=== PATIENT | female | born 1995 | race Caucasian/White ===

== ENCOUNTER 2017-11-14 12:37 | Emergency (ER) | payer MEDICAID, SELFPAY ==
[2017-11-14 12:38] VITALS: BP 121/70; PULSE 140; RESP 16; TEMP 36.8; O2SAT 98; BMI 23.1
[2017-11-14] MEDS: HYDROmorphone 1 MG/ML Syringe IV (13:10)
[2017-11-14] MEDS: Ondansetron 4 MG/2 ML Vial IV (13:10)
[2017-11-14] MEDS: 0.9% Normal Saline 1,000 ML 150 ML IV (13:11)
[2017-11-14] MEDS: Ketorolac 30 MG/ML Syringe IV (13:11)
[2017-11-14 13:29] LABS: Mucous, Urine 0 SEEN /hpf (<or=2+)
[2017-11-14 13:32] LABS: Color, Urine Yellow (Yellow); Glucose, Dipstick Normal (Normal); Ketone-Dipstick 5 mg/dl (Negative); Leukocyte Esterase-Dipstick 500 /ul (Negative); Nitrite-Dipstick Positive (Negative); Occult Blood-Urine 10 /ul (Negative); Protein-Dipstick 30 mg/dl (Negative); Specific Gravity, Urine 1.015 (1.002-1.030); Urine Bilirubin Dipstick Negative (Negative); Urine Clarity Cloudy (Clear); Urine Urobilinogen 4 mg/dl (Normal); Urine pH 6.5 (5.0 - 8.0)
[2017-11-14 13:43] LABS: D-Dimer Quantitative (DVT/PE) 1.19 FEU/ug/m (0.27-0.49)
[2017-11-14 13:45] LABS: Bacteria 2+ /hpf (None Seen); Red Blood Cells-Urine 0-5 SEEN /hpf (0-5); Squamous Epithelial Cells - UA 0-5 SEEN /hpf (5-10); White Blood Cells 5-10 SEEN /hpf (0-5)
[2017-11-14 13:46] VITALS: BP 117/85; PULSE 87; RESP 19; O2SAT 97
[2017-11-14 13:47] LABS: ALB/GLOB Ratio 0.8 RATIO (0.9-2.4); AST(SGOT) 10 U/L (15-37); Alanine Aminotransfer ALT/SGPT 17 U/L (13-56); Albumin, Serum 3.5 g/dL (3.2-5.0); Alkaline Phosphatase 78 U/L (45-117); Anion Gap 7 (5-15); BUN 12 mg/dL (7-18); BUN/Creat Ratio 18.4 RATIO (10-20); Calcium,Total 8.6 mg/dL (8.5-10.1); Chloride 104 mmol/L (98-107); Creatinine, Serum 0.65 mg/dL (0.55-1.02); EST Glomerular Filtration Rate 122 mL/min (>60); Est Glom Filt Rate - Afr Amer 147 mL/min (>60); Estimated Creatinine Clearance 118.22 ml/min; Globulin 4.5 g/dL (2.2-4.2); Glucose 94 mg/dL (74-106); Lipase 100 U/L (73-393); Potassium 3.4 mmol/L (3.5-5.1); Sodium Level 138 mmol/L (136-145)
[2017-11-14 13:51] LABS: Pregnancy, Serum, hCG Quali. NEGATIVE Negative (0-9 Nonpreg)
[2017-11-14 13:58] LABS: Erythrocyte Sedimentation Rate 34 mm/hr (0-20)
[2017-11-14 14:00] LABS: Absolute Lymphocyte Count 2.14 X10^3/ul (0.83-4.51); Absolute Neutrophil Count 7.3 X10^3/uL (2.0-7.7); Basophil# 0.02 X10^3/uL; Basophil% 0.2 % (0-1); Eosinophil# 0.01 X10^3/uL; Eosinophils% 0.1 % (0-5); Hematocrit 38.5 % (37-47); Hemoglobin 12.9 g/dl (12.0-15.0); Lymphocyte # 2.14 X10^3/ul (4.0); Lymphocyte % 20.7 % (19-41); Mean Corp Hgb Conc 33.5 g/gl (32-36); Mean Corpuscular Hgb 29.9 pg (27.0-32.0); Mean Corpuscular Volume 89.3 fL (81-99); Mean Platelet Vol. 9.2 fl (6.2-12.0); Monocyte# 0.92 X10^3/uL; Monocyte% 8.9 % (0-10); Neutrophil # 7.25 X10^3/uL (2.7-7.7); Platelet Count 352 K/mm3 (150-450); RBC Distribution Width CV 13.9 % (11.6-14.6); RBC Distribution Width SD 45.9 fl (35.1-43.9); Red Blood Count 4.31 M/mm3 (4.2-5.4); White Blood Count 10.4 K/mm3 (4.4-11.0)
[2017-11-14 14:02] LABS: POSITIVE COUNT NO; POSITIVE DIFFERENTIAL NO; POSITIVE MORPHOLOGY NO
--- NOTE | 2017-11-14 15:11 | US_ITS ---
STUDY: ABDOMINAL ULTRASOUND - RIGHT UPPER QUADRANT REASON FOR VISIT: Female, 22 years old. Right upper quadrant pain TECHNIQUE: Ultrasound evaluation of the right upper quadrant was performed with real-time and static biswas-scale imaging. TECHNICAL QUALITY: Adequate. COMPARISON: None. FINDINGS: Liver: The liver measures 15.0 cm. There is normal echogenicity of the liver. The bile ducts are within normal limits. There is hepatic color flow. The direction of portal flow is hepatopetal. There is no demonstrated mass lesion. Gallbladder: Normal distended gallbladder. The gallbladder wall measures 2 mm. There is a positive sonographic Macias's sign as per civil design technician. There is no pericholecystic fluid. There are multiple small gallstones and trace of sludge within the gallbladder. Common Bile Duct (C.B.D.): The common bile duct measures 4 mm. Pancreas: Normal size of the head, body and tail of the pancreas. There is normal echogenicity of the pancreas. There is no demonstrated pancreatic mass or cyst. Right Kidney: Normal size of the right kidney. The right kidney measures 10.4 x 5.5 x 5.5 cm. Normal renal cortex. The right cortex measures 2.0 cm. There is no demonstrated renal mass or cyst. There is no right hydronephrosis. US/Gallbladder IMPRESSION: Cholelithiasis and sludge within the gallbladder. Positive sonographic Macias's sign as per civil design technician. This may be associated with cholecystitis. Electronically Signed: Titus Roper MD at 16:52 EDT , Service support ,
[2017-11-14 15:19] VITALS: BP 88/69; PULSE 88; RESP 18; O2SAT 97
--- NOTE | 2017-11-14 16:03 | ED.VISSUMM ---
- ER Visit Summary Date of Service: 11/14/17 Chief Complaint: [Right chest/abdomen pain] History of Present Illness: The patient is a 22 F [presents the emergency department with complaint of discomfort in the right side that started 2 days ago. Patient states the pain initially was mild but then resolved. Pain came back and now was continuous to the right upper abdomen and rib area. Patient states at times the pain will radiate to her shoulder. She denies any fever. She denies vomiting. She is not sure if food affects it at all. Pain is worse with deep breath and movement. Patient denies recent travel or surgery. She has not done any lifting or straining. Patient is never had pain like this before. Patient denies urinary symptoms. Patient does not think she is .] Physical Examination: [HEENT-PERRLA, EOMI. Cranial nerves II through XII grossly intact. TMs clear. Mucous membranes moist. No adenopathy. Cardiovascular-regular rate and rhythm without murmur or ectopy Lungs-clear to auscultation, chest wall stable without crepitus or subcu emphysema Abdomen-normoactive bowel sounds, soft. Patient has tenderness over the right upper quadrant with guarding. There is no rebound, rigidity, or perineal signs. Extremities-intact ?4, normal range of motion, normal pulses, atraumatic] Test Results: [EKG obtained on arrival shows sinus rhythm with ventricular rate of 110 bpm with no acute ST segment changes noted. CBC with differential obtained showed a white count of 10.4, hemoglobin 12.9, hematocrit 38, platelets 352. Sed rate was elevated at 34. Chemistries unremarkable. LFTs were normal. Lipase was 100. Urinalysis was positive for 500 leukocyte esterase 5-10 the PVCs and +2 bacteria. D-dimer was elevated 1.19. CTA of the chest obtained showed no PE or dissection. CTA abdomen and pelvis with IV contrast showed questionable small gallstones gallbladder otherwise looked unremarkable. Nothing else significant on CT of the abdomen pelvis.] Ultrasound of the gallbladder obtained showed gallstones and sludge with a positive sonographic Macias sign. Patient had a common bile duct of 4 mm and gallbladder wall of 2 mm and there was no pericholecystic fluid. Emergency Department Course and Treatment: [She was medicated with Dilaudid and Zofran and had good pain relief with that. Patient continued to be concerned about the amount of pain that she was having and continues to experience right upper quadrant pain on exam. Gallbladder ultrasound was ordered.] At this point the etiology of her pain is unclear I did have a long discussion with the patient and discussed having the surgeon evaluate her in the emergency department to determine if her gallbladder should be removed given that she continues to have pain. The other option would be to follow-up as an outpatient and send patient home with pain medication with instructions to return if worsening pain, fever, vomiting, or condition should worsen in any way. Patient is requesting to be discharged home and does not want to be seen by the surgeon at this time. Treatment Plan: [Patient to follow-up with in the office.] Disposition: [Discharged home in stable condition] Impression: [Abdominal pain Cholelithiasis] This note was generated with [employer] dictation software. It may contain incorrect words, spelling, and punctuation that were not noted in review of the chart prior to signing ED Disposition - Plan for ED Patient: Chief Complaint: Chest Other Referrals: Care Physician,No Primary [Primary Care Provider] -
[2017-11-14 16:51] VITALS: BP 131/83; PULSE 110; RESP 20; O2SAT 100
[2017-11-14 17:00] VITALS: PULSE 98; RESP 14; O2SAT 100
--- NOTE | 2017-11-14 17:04 | ED.DEP ---
ED Disposition - Plan for ED Patient: Chief Complaint: Chest Other Instructions: ED Abdominal Pain Gallstone Poss Prescriptions: Hydrocodone/Acetaminophen [Wolcott 5-325 Tablet] 1 ea PO 4X/DAY PRN PRN 5 Days #20 tab PRN Reason: Pain Lansoprazole [Prevacid] 30 mg PO DAILY #30 cap Smz/Tmp Ds [Bactrim Ds] 1 tab PO BID #6 tab Referrals: Care Physician,No Primary [Primary Care Provider] - Katya Vargas MD [STAFF PHYSICIAN] - 3-5 Days
[2017-11-14] MEDS: Magnesium Citrate 300 ML 150 ML PO (17:13)
== END 2017-11-14 17:13 | disposition home or self-care (01) ==
PROVIDERS: Emergency Provider Emergency Medicine
DX: K80.20 Calculus of gallbladder without cholecystitis without obstruction (principal); R10.11 Right upper quadrant pain; Z87.440 Personal history of urinary (tract) infections; Z72.0 Tobacco use
CPT/HCPCS: 71045; 71275; 74160; 76705; 80053; 81001; 83605; 83690; 84703; 85025; 85379; 85652; 87086; 87088; 87186; 93005; 96361; 96374; 96375; 99284; J7030; Q9967; J2405

== ENCOUNTER 2018-08-05 21:35 | Emergency (ER) | payer MEDICAID, SELFPAY ==
[2018-08-05 21:36] VITALS: BP 110/66; PULSE 103; RESP 15; TEMP 36.4; BMI 18.8
--- NOTE | 2018-08-05 21:56 | RAD_ITS ---
STUDY: X-RAY - SOFT TISSUE NECK REASON FOR EXAM: Female, 23 years old. Sore throat TECHNIQUE: 2 view(s) of the neck were obtained. COMPARISON: None. FINDINGS: Normal visualized nasopharynx, oropharynx, hypopharynx. Normal epiglottis. Normal visualized subglottic tracheal air column. Normal prevertebral soft tissue structures. Normal visualized osseous structures. The soft tissue structures are unremarkable. RAD/Neck for Soft Tissue IMPRESSION: Normal x-ray soft tissue neck. Electronically Signed: Marcio Cardoza MD at 22:35 EDT , Service support ,
--- NOTE | 2018-08-05 21:57 | ED.VIS.GEN ---
History of Present Illness Chief Complaint: Sore Throat Informant: Patient Onset: Days - 2 Narrative: 2-day history of sore throat pain with swallowing. No fevers. No sick contacts. Nonproductive cough. Still has her tonsils. Tobacco history. History of penicillin allergy causing anaphylaxis. Advil taken 2 days ago. No vomiting or diarrhea. Prior similar symptoms: No Past Medical History - Allergies and Home Meds Allergies/Adverse Reactions: Allergies Penicillins [PCN] Allergy (Verified 08/05/18 21:38) Anaphylaxis Primary Care Physician: Care Physician,No Primary [Primary Care Provider] - Surgical History: no surgical history Smoking Status: Current every day smoker - Family History Maternal Family History: Reports: - - thyroid disease Paternal Family History: Reports: Hypertension Sibling Family History: Reports: - - thyroid disease Review of Systems General: Denies: Chills, Fever, Sweats Eyes: Denies: Visual changes - bilaterally, Diplopia ENT: Denies: Rhinorrhea, Sore throat Cardiovascular: Denies: Chest pain, Palpitations Respiratory: Reports: Cough Gastrointestinal: Denies: Abdominal pain, Nausea, Vomiting, Diarrhea, Melena, Hematochezia Genitourinary: Denies: Dysuria, Hematuria, Frequency Musculoskeletal: Denies: Back pain, Extremity Pain Skin: Denies: Rash, Wounds Neurological: Denies: Headache, Weakness, Numbness Physical Exam Vital Signs/Narrative: Vital Signs Temp Pulse Resp BP 08/05/18 21:36 97.5 F L 103 H 15 110/66 Inital Vital Signs reviewed: Yes General: Well nourished, Well developed, No Acute Distress Head: Normocephalic, Atraumatic Eyes: Perrl, EOMI ENT: Moist mucous membranes, No rhinorrhea, - - No posterior pharyngeal erythema, minimal sized tonsils, uvula midline, no trismus. Neck: Supple, - - Tender palpation anterior cervical bilaterally. No crepitus. Cardiovascular: Regular rate, Regular rhythm, No murmurs Respiratory: No distress, CTA bilaterally, Chest nontender Abdomen: Soft, Nontender, Nondistended, Normal bowel sounds Back: Nontender, Normal Inspection Extremities: Nontender, No edema Skin: Normal color, No rash Neurological: Alert, Oriented x3, Cranial nerves II-XII grossly intact, Normal Strength, Normal Sensation Psychological: Normal affect, Normal Mood Diagnostic/Tx/Re-eval Rapid strep negative. Culture pending. Soft tissue x-ray neck: Normal epiglottis, no acute findings. - Medical Decision Making Patient nontoxic. Throat with minimal erythema how she has tenderness along the anterior neck region. Rapid strep obtained negative. Culture pending. She was sent for soft tissue x-ray of the neck which was normal. Treated with Decadron and Tylenol in the ED. Reported when patient went to x-ray had pain in her neck and a syncopal episode. Vitals are stable no focal deficits. Likely vasovagal reaction. She is currently stable. Discussed with patient continue oral hydration. Prescription for viscous lidocaine written for additional symptom control as needed. All questions were answered. ED Disposition - Plan for ED Patient: Disposition: Home or Assisted Living Diagnosis: Acute pharyngitis Instructions: ED Pharyngitis Viral Report Pending Prescriptions: Lidocaine 2% Viscous [Xylocaine Viscous] 5 ml PO Q8H PRN PRN #100 ml PRN Reason: throat pain Referrals: Care Physician,No Primary [Primary Care Provider] - Aicha Centeno [NON-STAFF] - 3-5 Days if not improving
[2018-08-05] MEDS: Acetaminophen 500 MG Tablet 1000 MG PO (22:13)
[2018-08-05 22:30] VITALS: BP 103/70; PULSE 102; RESP 16; O2SAT 97
--- NOTE | 2018-08-05 22:30 | ED.RN ---
STAFF ASSIST TO RADIOLOGY. REPORTED PATIENT PASSED OUT WHILE GETTING XRAY DONE. PER PRODUCT STRATEGY DIRECTOR PATIENT DID NOT HIT HEAD. ASSISTED PATIENT BACK TO ROOM VIA WHEELCHAIR. VITAL SIGNS STABLE. DR. DE LA O NOTIFIED.
[2018-08-05 23:20] VITALS: BP 98/71; PULSE 98; RESP 19; O2SAT 95
== END 2018-08-05 23:40 | disposition home or self-care (01) ==
PROVIDERS: Emergency Provider Emergency Medicine
DX: J02.9 Acute pharyngitis, unspecified (principal); F17.200 Nicotine dependence, unspecified, uncomplicated
CPT/HCPCS: 70360; 87880; 99283; J7040

== ENCOUNTER 2019-01-07 18:35 | Emergency (ER) | payer MEDICAID, SELFPAY ==
[2019-01-07 18:36] VITALS: BP 116/73; PULSE 98; RESP 14; TEMP 36.7; O2SAT 97; BMI 25.9
[2019-01-07 18:48] VITALS: BP 116/73; PULSE 98; RESP 14; O2SAT 97
[2019-01-07 18:49] VITALS: BP 116/73; PULSE 98; RESP 14; TEMP 36.7; O2SAT 97
[2019-01-07] MEDS: Clindamycin HCl 150 MG Capsule 450 MG PO (19:56)
--- NOTE | 2019-01-07 20:00 | ED.DCSUM_ITS ---
History of Present Illness Chief Complaint: Dental Informant: Patient Onset: Today Narrative: Swelling left lower jaw this morning, had dental pain for 2 days. No fevers. No hot cold sensitivities. Tobacco history. Reports had a root canal wanted tooth 2 years ago however it fell off. States another feeling is loose. No difficulty swallowing. Allergies to penicillin. Aleve taken yesterday. States going to a dentist in [facility]. Prior similar symptoms: Yes Past Medical History - Allergies and Home Meds Allergies/Adverse Reactions: Allergies Penicillins [PCN] Allergy (Verified 01/07/19 18:38) Anaphylaxis Primary Care Physician: Care Physician,No Primary [Primary Care Provider] - Surgical History: no surgical history Smoking Status: Current every day smoker - Family History Maternal Family History: Reports: - - thyroid disease Paternal Family History: Reports: Hypertension Sibling Family History: Reports: - - thyroid disease Review of Systems General: Denies: Chills, Fever, Sweats Eyes: Denies: Visual changes - bilaterally, Diplopia ENT: Denies: Rhinorrhea, Sore throat Cardiovascular: Denies: Chest pain, Palpitations Respiratory: Denies: Dyspnea, Cough, Dyspnea on exertion Gastrointestinal: Denies: Abdominal pain, Nausea, Vomiting, Diarrhea, Melena, Hematochezia Genitourinary: Denies: Dysuria, Hematuria, Frequency Musculoskeletal: Denies: Back pain, Extremity Pain Skin: Denies: Rash, Wounds Neurological: Denies: Headache, Weakness, Numbness Physical Exam Vital Signs/Narrative: Vital Signs Temp Pulse Resp BP Pulse Ox 01/07/19 18:49 98.0 F 98 14 116/73 97 01/07/19 18:48 98 14 116/ 97 01/07/19 18:36 98.0 F 98 14 116/73 97 Inital Vital Signs reviewed: Yes General: Well nourished, Well developed, No Acute Distress Head: Normocephalic, Atraumatic Eyes: Perrl, EOMI ENT: Moist mucous membranes, No rhinorrhea, - - Dental decay tooth #19, broken filling tooth #18, there is induration fluctuance region lower gumline in this region. There is swelling of the jaw line. There is no sublingual edema. There is no crepitus of the neck line. Neck: Supple, Nontender Cardiovascular: Regular rate, Regular rhythm, No murmurs Respiratory: No distress, CTA bilaterally, Chest nontender Abdomen: Soft, Nontender, Nondistended, Normal bowel sounds Back: Nontender, Normal Inspection Extremities: Nontender, No edema Skin: Normal color, No rash Neurological: Alert, Oriented x3, Cranial nerves II-XII grossly intact, Normal Strength, Normal Sensation Psychological: Normal affect, Normal Mood Diagnostic/Tx/Re-eval - Medical Decision Making Patient exam concerns with developing dental abscess left lower gumline. Starting clindamycin, naproxen. Discussed incision and drainage which she agreed. Stab incision, however no exudative drainage was noted. Should continue antibiotics, she has naproxen at home. She will follow-up with her dentist. Signs and symptoms discussed return. All questions were answered. Procedure note: Verbal consent for incision and drainage. Normal sterile condi tions, dental block performed using dental needle and syringe with bupivacaine 0.5%. Good analgesia to the left inferior alveolar. Stab incision with 11 blade at gumline of tooth #19, bloody drainage however no exudates. Patient tolerated procedure well. Gauze was used to help with hemostasis. ED Disposition - Plan for ED Patient: Disposition: Home or Assisted Living Diagnosis: Dental abscess Instructions: Dental Abscess Prescriptions: Clindamycin [Cleocin] 450 mg PO TID #90 capsule Referrals: Care Physician,No Primary [Primary Care Provider] - Additional Instructions: Follow-up with your dentist for definitive treatment.
[2019-01-07 20:36] VITALS: BP 118/77; PULSE 84; RESP 18; O2SAT 100
[2019-01-07] MEDS: Bupivacaine 0.5% PF 10 ML VIAL 5 ML INFILT (21:01)
== END 2019-01-07 21:03 | disposition home or self-care (01) ==
PROVIDERS: Emergency Provider Emergency Medicine
DX: K04.7 Periapical abscess without sinus (principal); F17.200 Nicotine dependence, unspecified, uncomplicated
CPT/HCPCS: 41800; 99281

== ENCOUNTER 2019-04-12 22:52 | Emergency (ER) | payer MEDICAID, SELFPAY ==
[2019-04-12 22:53] VITALS: BP 125/67; PULSE 84; RESP 18; TEMP 37.1; O2SAT 97; BMI 25.7
--- NOTE | 2019-04-12 23:04 | ED.VIS.GEN ---
History of Present Illness Chief Complaint: Other, Pain/Inj Informant: Patient Narrative: Stated she has a small cold sore on her left lower lip. It started this morning. She is never had this before. It is tender and she feels mild burning pain. Denies any other symptoms. She has some swelling mildly where the cold sores located. Current severity is mild. Denies any other symptoms. Denies any genital lesions. - Past Medical History (1) Anemia associated with acute blood loss Status: Acute (2) Missed Status: Acute (3) hemorrhage of vagina Status: Acute (4) hemorrhage, delayed (> 24 hrs) Status: Acute Past Medical History - Allergies and Home Meds Allergies/Adverse Reactions: Allergies Penicillins [PCN] Allergy (Verified 04/12/19 22:55) Anaphylaxis Primary Care Physician: Care Physician,No Primary [Primary Care Provider] - Prior records reviewed: Yes Past Medical History: - - See problem list Surgical History: no surgical history Lives: With Family Smoking Status: Current every day smoker Alcohol: None Drugs: None - Family History Maternal Family History: Reports: - - thyroid disease Paternal Family History: Reports: Hypertension Sibling Family History: Reports: - - thyroid disease Review of Systems General: Denies: Chills, Fever, Sweats Eyes: Denies: Visual changes - bilaterally, Diplopia ENT: Denies: Rhinorrhea, Sore throat Cardiovascular: Denies: Chest pain, Palpitations Respiratory: Denies: Dyspnea, Cough, Dyspnea on exertion Gastrointestinal: Denies: Abdominal pain, Nausea, Vomiting, Diarrhea, Melena, Hematochezia Genitourinary: Denies: Dysuria, Hematuria, Frequency Musculoskeletal: Denies: Back pain, Extremity Pain Skin: Reports: - - See HPI. Denies: Wounds Neurological: Denies: Headache, Weakness, Numbness Physical Exam Vital Signs/Narrative: Vital Signs Temp Pulse Resp BP Pulse Ox 04/12/19 22:53 98.7 F 84 18 125/67 H 97 General: Well nourished, Well developed, No Acute Distress Head: Normocephalic, Atraumatic Eyes: Perrl, EOMI ENT: Moist mucous membranes, No rhinorrhea, - - She has a small 0.5 x 0.25 cold sore on her left lower lateral lip. Neck: Supple, Nontender Cardiovascular: Regular rate, Regular rhythm, No murmurs Respiratory: No distress, CTA bilaterally, Chest nontender Abdomen: Soft, Nontender, Nondistended, Normal bowel sounds Back: Nontender, Normal Inspection Extremities: Nontender, No edema Skin: Normal color, No rash Neurological: Alert, Oriented x3, Cranial nerves II-XII grossly intact, Normal Strength, Normal Sensation Psychological: Normal affect, Normal Mood Diagnostic/Tx/Re-eval - Medical Decision Making Patient reassured. She will be given Abreva. At this time she was instructed on how to care for her cold sore. It is self resolving. We will follow-up as an outpatient ED Disposition - Plan for ED Patient: Disposition: Home or Assisted Living Diagnosis: Cold sore Instructions: HERPES LABIALIS, HSV: Type I Prescriptions: Docosonal [Abreva] 1 applic TP 5X/DAY 14 Days #1 tube Prescription Printed Referrals: Salvatore Brice DO [NON CLINICAL AFFILIATE] -
[2019-04-12 23:13] VITALS: RESP 14
== END 2019-04-12 23:13 | disposition home or self-care (01) ==
LOC: ED 23:08
PROVIDERS: Emergency Provider Emergency Medicine
DX: B00.1 Herpesviral vesicular dermatitis (principal); F17.200 Nicotine dependence, unspecified, uncomplicated
CPT/HCPCS: 99282

== ENCOUNTER → 2019-10-02 | Outpatient (CLI) | payer MEDICAID, SELFPAY ==
[2019-10-02 13:53] VITALS: BMI 25.7
[2019-10-02 15:30] LABS: Internal QC Validated? YES +Cl - CLEAR BKGD; Pregnancy, Urine Negative Negative
[2019-10-02 15:40] LABS: Absolute Lymphocyte Count 2.71 X10^3/uL (0.83-4.51); Absolute Neutrophil Count 5.6 X10^3/uL (2.0-7.7); Basophil# 0.06 X10^3/uL; Basophil% 0.7 % (0-1); Eosinophil# 0.03 X10^3/uL; Eosinophils% 0.3 % (0-5); Hematocrit 41.4 % (37-47); Hemoglobin 13.9 g/dL (12.0-15.0); Lymphocyte # 2.71 X10^3/ul (4.0); Lymphocyte % 29.8 % (19-41); Mean Corp Hgb Conc 33.6 g/dL (32-36); Mean Corpuscular Hgb 31.2 pg (27.0-32.0); Mean Platelet Vol. 9.4 fl (6.2-12.0); Monocyte# 0.67 X10^3/uL; Monocyte% 7.4 % (0-10); NRBC Flagged by Analyzer 0 % (0-5); Neutrophil % 61.6 % (47-70); Platelet Count 388 K/mm3 (150-450); RBC Distribution Width SD 44.3 fl (35.1-43.9); Red Blood Count 4.45 M/mm3 (4.2-5.4); White Blood Count 9.1 K/mm3 (4.4-11.0)
[2019-10-02 16:52] LABS: ALB/GLOB Ratio 1.1 RATIO (0.9-2.4); AST(SGOT) 17 U/L (15-37); Alanine Aminotransfer ALT/SGPT 22 U/L (13-56); Albumin, Serum 4.3 g/dL (3.2-5.0); Alkaline Phosphatase 84 U/L (45-117); Anion Gap 7 (5-15); BUN 10 mg/dL (7-18); BUN/Creat Ratio 15.7 RATIO (10-20); Calcium,Total 8.9 mg/dL (8.5-10.1); Chloride 104 mmol/L (98-107); Creatinine, Serum 0.64 mg/dL (0.55-1.02); EST Glomerular Filtration Rate 123 mL/min (>60); Est Glom Filt Rate - Afr Amer 148 mL/min (>60); Globulin 3.8 g/dL (2.2-4.2); Glucose 76 mg/dL (74-106); Potassium 3.6 mmol/L (3.5-5.1); Protein, Total 8.1 g/dL (6.4-8.2); Sodium Level 139 mmol/L (136-145); Thyroid Stim Hormone (TSH) 1.35 uIU/mL (0.358-3.74)
[2019-10-03 14:53] LABS: HIV - WCH Non-Reactive (Nonreactive); Hepatitis B Surface Antigen Non-Reactive (Nonreactive); Hepatitis C Antibody Preliminary Reactive (Nonreactive)
== END | disposition home or self-care (01) ==
LOC: BIMLAB 14:20
PROVIDERS: PCP Internal Medicine; Referring Provider Nurse Practitioner Family; Visit Provider Nurse Practitioner Family
DX: F19.10 Other psychoactive substance abuse, uncomplicated (principal); F31.9 Bipolar disorder, unspecified
CPT/HCPCS: 36415; 80053; 81025; 84443; 85025; 86703; 86803; 87340

== ENCOUNTER 2019-11-16 02:38 | Inpatient (IN) | payer MEDICAID, SELFPAY ==
[2019-10-02 13:53] VITALS: BMI 25.7
[2019-11-16] VITALS (42 sets, daily range): BP systolic 59–145; BP diastolic 38–92; PULSE 67–129; RESP 10–33; TEMP 35.8–39.6; O2SAT 92–100; BMI 25.7; BMI 25.9; BMI 26.0
--- NOTE | 2019-11-16 02:57 | US_ITS ---
STUDY: ABDOMINAL ULTRASOUND - RIGHT UPPER QUADRANT REASON FOR VISIT: Female, 24 years old RUQ PAIN 2 DAYS WORSE TONIGHT TECHNIQUE: Ultrasound evaluation of the right upper quadrant was performed with real-time and static biswas-scale imaging. TECHNICAL QUALITY: Limited. Examination limited by bowel gas. COMPARISON: CT abdomen pelvis and limited abdominal ultrasound 11/14/2017 FINDINGS: Liver: The liver measures 15.6 cm. There is focal increased echogenicity of the liver in the anterior left lobe measuring 4.8 x 1.8 x 2.1 cm. This appears to be increased since previous examination. The bile ducts are within normal limits. There is hepatic color flow. The direction of portal flow is hepatopetal. There is no demonstrated mass lesion. Gallbladder: 11.5 cm distended gallbladder. The gallbladder wall measures 2.1 mm. There is a negative sonographic Macias''s sign. There is no pericholecystic fluid. There is biliary sludge dependent within the gallbladder. Common Bile Duct (C.B.D.): The common bile duct measures 3.2 mm. Pancreas: Normal size of the head, body and obscured tail of the pancreas. There is normal echogenicity of the pancreas. There is no demonstrated pancreatic mass or cyst. Right Kidney: Normal size of the right kidney. The right kidney measures 11 x 5.5 x 5.5 cm. Normal renal cortex. The right cortex measures 2 cm. There is no demonstrated renal mass or cyst. There is no right hydronephrosis. US/Gallbladder IMPRESSION: Possible focal fatty deposition into the liver as above, however increased since previous examination. As this has changed the previous ultrasound examination, consideration of a noncontrast and contrast-enhanced dynamic CT liver or MRI is recommended for better delineation exclusion off other pathology. Markedly distended gallbladder containing sludge, however no wall thickening or ultrasonographic Macias''s sign to suggest acute cholecystitis. Partially obscured pancreas tail. Electronically Signed: Bianka Fulton MD at 4:56 EDT , Service support ,
--- NOTE | 2019-11-16 03:06 | ED.VIS.GEN ---
History of Present Illness Chief Complaint: Abd Pain Narrative: This patient is a 24-year-old female who presents with abdominal pain nausea and vomiting. She complains of severe right upper quadrant abdominal pain for 2 days. This is colicky. She describes it as stabbing. This is associated with nausea vomiting and fever. No diarrhea. She denies any prior abdominal surgeries but has been previously diagnosed with biliary colic and did not follow-up. She no longer has menstrual periods due to an IUD placement. No vaginal bleeding or discharge. No diarrhea. She denies chest pain shortness of breath or cough. Past Medical History - Allergies and Home Meds Allergies/Adverse Reactions: Allergies Penicillins [PCN] Allergy (Verified 10/02/19 13:52) Anaphylaxis Primary Care Physician: Denisha Vernon MD [Primary Care Provider] - Past Medical History: - - Depression Surgical History: no surgical history Smoking Status: Former smoker Drugs: - - She denies illicit drug use. - Family History Maternal Family History: Family History (Last Reviewed 10/02/19 @ 13:52 by Kyle Mejia) Father Alcoholism Anxiety Depression Hypertension Suicide Mother Thyroid disorder Family History: Reports: - - thyroid disease Paternal Family History: Family History (Last Reviewed 10/02/19 @ 13:52 by Kyle Mejia) Father Alcoholism Anxiety Depression Hypertension Suicide Mother Thyroid disorder Family History: Reports: Hypertension Sibling Family History: Family History (Last Reviewed 10/02/19 @ 13:52 by Kyle Mejia) Father Alcoholism Anxiety Depression Hypertension Suicide Mother Thyroid disorder Family History: Reports: - - thyroid disease Review of Systems All systems negative except as indicated General: Reports: Fever Eyes: Denies: Visual changes - bilaterally ENT: Denies: Bilateral ear pain Cardiovascular: Denies: Chest pain Respiratory: Denies: Dyspnea, Cough Gastrointestinal: Reports: Abdominal pain, Nausea, Vomiting. Denies: Diarrhea Skin: Denies: Rash Neurological: Denies: Headache Hematologic: Denies: Easy bruising Allergy: Denies: Uticaria Physical Exam Vital Signs/Narrative: Vital Signs Temp Pulse Resp BP Pulse Ox 11/16/19 02:42 103.3 F H 123 H 20 H 129/91 H 99 11/16/19 02:39 103.3 F H 123 H 20 H 129/91 H 99 Inital Vital Signs reviewed: Yes General: - - Patient ill appearing Head: Normocephalic, Atraumatic Eyes: EOMI ENT: Moist mucous membranes Neck: Supple Cardiovascular: Regular rhythm, Tachycardia Respiratory: No distress, CTA bilaterally Abdomen: Soft, Tender - Right upper quadrant abdominal pain on palpation, Macias's sign. Negative for: Guarding, Rebound tenderness Skin: Normal color Neurological: Alert Psychological: Normal affect Diagnostic/Tx/Re-eval Impressions Gallbladder Ultrasound 11/16/19 02:57 IMPRESSION: Possible focal fatty deposition into the liver as above, however increased since previous examination. As this has changed the previous ultrasound examination, consideration of a noncontrast and contrast-enhanced dynamic CT liver or MRI is recommended for better delineation exclusion off other pathology. Markedly distended gallbladder containing sludge, however no wall thickening or ultrasonographic Macias''s sign to suggest acute cholecystitis. Partially obscured pancreas tail. Electronically Signed: Bianka Fulton MD at 4:56 EDT , Service support , ADDENDUM: 11/16/19 0515 Abdomen/Pelvis CT 11/16/19 04:26 IMPRESSION: Findings suggestive of pyelonephritis/ureteritis of the right genitourinary system. Distended gallbladder, no gallbladder inflammation or sludge detected. Injuries involving the liver along the falciform ligament likely focal fatty sparing. Changes along the liver parenchyma periphery on ultrasound is not demonstrated. There is no appendicitis, colitis, abscess, collection, perforation or obstruction. Intrauterine device in suboptimal positioning. Right involuting ovarian cyst/follicles. Electronically Signed: Bianka Fulton MD at 5:05 EDT , Service support , 11/16/19 02:57 Gallbladder [US] Stat 11/16/19 04:26 CT Abd [Abdomen/Pelvis W IV Cont ONLY] [CT] Stat Laboratory Results 11/16/19 11/16/19 11/16/19 03:17 03:17 03:17 WBC 25.2 H RBC 4.08 L Hgb 12.7 Hct 35.6 L MCV 87.3 MCH 31.1 MCHC 35.7 RDW Std Deviation 38.7 RDW Coeff of Kathy 12.0 Plt Count 285 MPV 9.6 Immature Gran % (Auto) 0.900 Neut % (Auto) 87.8 H Lymph % (Auto) 4.5 L [place] % (Auto) 6.5 Eos % (Auto) 0.1 Baso % (Auto) 0.2 Absolute Neuts (auto) 22.1 H Absolute Lymphs (auto) 1.14 Nucleated RBC % 0 Differential Comment SCANNED Diff Path Review May foll Sodium 130 L Potassium 2.5 L* Chloride 95 L Carbon Dioxide 24.0 Anion Gap 11 BUN 11 Creatinine 1.05 H Estim Creat Clear Calc 71.96 Est GFR (MDRD) Af Amer 83 Est GFR (MDRD) Non-Af 69 BUN/Creatinine Ratio 10.5 Glucose 116 H Lactic Acid 1.2 Calcium 8.4 L Total Bilirubin 1.00 AST 18 ALT 21 Alkaline Phosphatase 81 Total Protein 7.5 Albumin 3.4 Globulin 4.1 Albumin/Globulin Ratio 0.8 L Lipase 37 L Serum , Qual 11/16/19 03:17 WBC RBC Hgb Hct MCV MCH MCHC RDW Std Deviation RDW Coeff of Kathy Plt Count MPV Immature Gran % (Auto) Neut % (Auto) Lymph % (Auto) [place] % (Auto) Eos % (Auto) Baso % (Auto) Absolute Neuts (auto) Absolute Lymphs (auto) Nucleated RBC % Differential Comment Diff Path Review Sodium Potassium Chloride Carbon Dioxide Anion Gap BUN Creatinine Estim Creat Clear Calc Est GFR (MDRD) Af Amer Est GFR (MDRD) Non-Af BUN/Creatinine Ratio Glucose Lactic Acid Calcium Total Bilirubin AST ALT Alkaline Phosphatase Total Protein Albumin Globulin Albumin/Globulin Ratio Lipase Serum , Qual NEGATIVE - Medical Decision Making Based on patient's initial presentation and reported history I was concerned for acute cholecystitis. Patient was given IV fluids morphine Zofran. She is penicillin allergic and reaction is anaphylaxis so she was given Cipro and Flagyl as empiric coverage. Laboratory studies were obtained which are notable for white blood cell count of 25,000. Potassium is 2.5. Lactic acid normal. I did order IV potassium chloride. Patient was sent for right upper quadrant ultrasound which does show distended gallbladder but does not show findings consistent with acute cholecystitis. At this point we obtained a CT of the abdomen pelvis with IV contrast. This shows findings most consistent with right pyelonephritis. Urine is still pending at this time patient has not yet been able to void. She is given further IV fluids. Patient was discussed with the hospitalist, Dr. Shields who agrees to admit. ED Disposition - Plan for ED Patient: Disposition: Acute Care [facility] Diagnosis: Sepsis, Pyelonephritis Referrals: Denisha Vernon MD [Primary Care Provider] -
[2019-11-16] MEDS: 0.9% Normal Saline 1,000 ML 1000 ML IV (03:17)
[2019-11-16] MEDS: Morphine 4 MG/ML Syringe IV ×2 (03:17→04:59)
[2019-11-16] MEDS: Ondansetron 4 MG/2 ML Vial IV (03:18)
[2019-11-16] MEDS: Acetaminophen 325 MG Tablet 650 MG PO ×2 (03:18→21:26)
[2019-11-16] MEDS: metroNIDAZOLE 500 MG/100 ML BAG 100 MG IV (03:33)
[2019-11-16 03:45] LABS: Absolute Lymphocyte Count 1.14 X10^3/uL (0.83-4.51); Absolute Neutrophil Count 22.1 X10^3/uL (2.0-7.7); Basophil# 0.05 X10^3/uL; Basophil% 0.2 % (0-1); Eosinophil# 0.03 X10^3/uL; Eosinophils% 0.1 % (0-5); Hematocrit 35.6 % (37-47); Hemoglobin 12.7 g/dL (12.0-15.0); Lymphocyte # 1.14 X10^3/ul (4.0); Lymphocyte % 4.5 % (19-41); Mean Corp Hgb Conc 35.7 g/dL (32-36); Mean Corpuscular Hgb 31.1 pg (27.0-32.0); Mean Corpuscular Volume 87.3 fL (81-99); Mean Platelet Vol. 9.6 fl (6.2-12.0); Monocyte# 1.65 X10^3/uL; Monocyte% 6.5 % (0-10); NRBC Flagged by Analyzer 0 % (0-5); Neutrophil # 22.12 X10^3/uL (2.7-7.7); Neutrophil % 87.8 % (47-70); POSITIVE DIFFERENTIAL YES; Platelet Count 285 K/mm3 (150-450); RBC Distribution Width SD 38.7 fl (35.1-43.9); Red Blood Count 4.08 M/mm3 (4.2-5.4); White Blood Count 25.2 K/mm3 (4.4-11.0)
[2019-11-16 03:49] LABS: Differential Indicated SCAN CRITERIA MET
[2019-11-16 04:06] LABS: ALB/GLOB Ratio 0.8 RATIO (0.9-2.4); AST(SGOT) 18 U/L (15-37); Alanine Aminotransfer ALT/SGPT 21 U/L (13-56); Albumin, Serum 3.4 g/dL (3.2-5.0); Alkaline Phosphatase 81 U/L (45-117); Anion Gap 11 (5-15); BUN 11 mg/dL (7-18); BUN/Creat Ratio 10.5 RATIO (10-20); Calcium,Total 8.4 mg/dL (8.5-10.1); Chloride 95 mmol/L (98-107); Creatinine, Serum 1.05 mg/dL (0.55-1.02); EST Glomerular Filtration Rate 69 mL/min (>60); Est Glom Filt Rate - Afr Amer 83 mL/min (>60); Estimated Creatinine Clearance 71.96 ml/min; Globulin 4.1 g/dL (2.2-4.2); Glucose 116 mg/dL (74-106); Lipase 37 U/L (73-393); Potassium 2.5 mmol/L (3.5-5.1); Protein, Total 7.5 g/dL (6.4-8.2); Sodium Level 130 mmol/L (136-145)
[2019-11-16 04:12] LABS: Internal QC Validated? YES +Cl - CLEAR BKGD; Pregnancy, Serum, hCG Quali. NEGATIVE Negative
[2019-11-16 04:13] LABS: Differential Comment SCANNED
[2019-11-16 04:17] LABS: Lactic Acid 1.2 mmol/L (0.4-1.9)
--- NOTE | 2019-11-16 04:26 | CT_ITS ---
STUDY: CT ABDOMEN AND PELVIS WITH CONTRAST REASON FOR EXAM: Female, 24 years old. RUQ Pain, fever AND VOMITING X 2 Days, elevated WBC -- Hx: hep C, pt HAS IUD RADIATION DOSAGE (If Supplied By Facility): CTDIvol = ( 14.08 ) mGy, DLP = ( 603.30 ) mGycm TECHNIQUE: Transaxial 3.75 mm images were obtained from the dome of the diaphragm to the symphysis pubis without oral contrast. IV 100mL Isovue-370 was administered. Sagittal and coronal images were reconstructed. Individualized dose optimization techniques were used for this CT. COMPARISON: Limited abdominal ultrasound 11/16/2019. CT abdomen pelvis contrast 11/14/2017. FINDINGS: The visualized lung bases are unremarkable. The visualized portions of the heart are within normal limits. There is focal low attenuation along the falciform ligament, more pronounced on the current examination compared to previous CT likely focal fatty sparing. There are no cirrhotic changes. Distended gallbladder and extrahepatic biliary system. Normal spleen. Normal pancreas. Normal bilateral adrenal glands. Heterogeneous nephrogram of the right kidney with scattered areas of decreased enhancement more pronounced in the upper and mid kidney with indistinct contour, trace perirenal stranding, periureteral indistinct contour and stranding . There is no hydronephrosis, obstructing renal or ureteral calculus. Left nephrogram appears homogeneous. Normal visualized stomach. Normal small intestine. Normal colon. The appendix is visualized and appears normal. Normal abdominal aorta. Normal inferior vena cava. Normal retroperitoneum. Normal urinary bladder. The intrauterine device is positioned in the lower uterine segment and cervix. The right adnexa contains a partially peripherally enhancing low-attenuation 1.7 x 1.7 cm likely a complex cyst with additional smaller subcentimeter low attenuations. Normal abdominal wall. Normal osseous structures. CT/Abdomen/Pelvis W IV Cont ONLY IMPRESSION: Findings suggestive of pyelonephritis/ureteritis of the right genitourinary system. Distended gallbladder, no gallbladder inflammation or sludge detected. Injuries involving the liver along the falciform ligament likely focal fatty sparing. Changes along the liver parenchyma periphery on ultrasound is not demonstrated. There is no appendicitis, colitis, abscess, collection, perforation or obstruction. Intrauterine device in suboptimal positioning. Right involuting ovarian cyst/follicles. Electronically Signed: Bianka Fulton MD at 5:05 EDT , Service support ,
[2019-11-16] MEDS: Ciprofloxacin 400 MG/200 ML BAG 200 MG IV (04:59)
--- NOTE | 2019-11-16 05:10 | HP.PCM_ITS ---
Problem List (1) Acute sepsis Status: Acute (2) Acute pyelonephritis Status: Acute (3) Polysubstance abuse Status: Chronic (4) Anxiety Status: Chronic (5) Tobacco use Status: Chronic History of Present Illness Date of Admission: 11/16/19 Chief Complaint: Abdominal pain, N/V The patient is a 24 y/o F w/ PMHx: Migraines, Hx Polysubstance abuse w/ Methamphetamines, Anxiety and Depression, Former Tobacco use who presents to the [facility] ED on 11/16/19 with history of onset significant abdominal pain primarily severe right upper quadrant pain x2 days, stabbing, 10 out of 10 in severity with associated nausea, emesis and fevers with no related diarrhea radiating toward her right lower back initially felt as though this was her biliary colic; however, no resolving. She noted that her urine had been dark but no other related urinary symptoms. Work-up in the ED included T initially 103.3, heart rate initially 123, BP 1 29-91, respiratory rate 20, 99% on room air with most recent repeat upon evaluation T1 100.7, heart rate 96, BP 145/80, respiratory rate 20, 95% on room air, CBC with WBC 25.2, hemoglobin 12.7, platelet 25 with significant left shift, CMP with sodium 130, potassium 2.5, chloride 95, BUN/creatinine 11/1.05, glucose 116, lactic acid 1.2, lipase 37, unremarkable hepatic profile, negative serum testing, gallbladder ultrasound with possible focal fatty deposition in the liver increases prior exam, markedly distended gallbladder containing sludge however no wall thickening or ultrasonographic Mcaias sign to suggest acute cholecystitis, partially discrete pancreatic tail, CT abdomen pelvis with findings suggestive of pyelonephritis/ureteritis of the right genitourinary system, distended gallbladder with no gallbladder inflammation or sludge detected, injuries involving the liver along the falciform ligament likely focal fatty sparing, intrauterine device in suboptimal positioning, right involuting ovarian cyst/follicles. In the ED patient ministered normal saline, Zofran, morphine, ciprofloxacin, Flagyl, Tylenol and potassium supplementation. Past Medical History Past Medical History (Chronic Problems): Chronic Problems Polysubstance abuse (Chronic) Anxiety (Chronic) Tobacco use (Chronic) Medical History: Medical History (Last Reviewed 10/02/19 @ 13:52 by Kyle Mejia) History of drug abuse F19.11 History of emotional problems Z86.59 History of gallstones Z87.19 Chronic migraine G43.709 Allergies Penicillins [PCN] Allergy (Verified 10/02/19 13:52) Anaphylaxis Home Medications: Ambulatory Orders Medication Instructions Recorded acetaminophen 500 mg tablet 500 mg PO BID PRN #60 tab 10/02/19 ibuprofen 400 mg tablet 400 mg PO Q8H PRN #60 tab 10/02/19 quetiapine 25 mg tablet 25 mg PO BID #60 tab 10/02/19 Surgical History: - - D+C x 3. 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 Tobacco Use: Cigarettes Alcohol: None Drugs: - - Patient notes being clean x3-month, admits to methamphetamine use however records do also indicate heroin use which she denies. - *Family History Maternal Family History: Family History (Last Reviewed 10/02/19 @ 13:52 by Kyle Mejia) Father Alcoholism Anxiety Depression Hypertension Suicide Mother Thyroid disorder History Items: - - thyroid disease Paternal Family History: Family History (Last Reviewed 10/02/19 @ 13:52 by Kyle Mejia) Father Alcoholism Anxiety Depression Hypertension Suicide Mother Thyroid disorder History Items: Hypertension, - - Father with concurrent history of alcoholism, anxiety and depression with suicide. Sibling Family History: Family History (Last Reviewed 10/02/19 @ 13:52 by Kyle Mejia) Father Alcoholism Anxiety Depression Hypertension Suicide Mother Thyroid disorder History Items: - - thyroid disease Review of Systems Constitutional: Reports: Anorexia, Fever, Malaise, Weakness, Fatigue. Denies: Chills, Weight Change HEENT: Denies: Head Aches, Sinus Congestion, Sinus Drainage Cardiovascular: Denies: Chest Pain, Palpitations Respiratory: Denies: Cough, Shortness of breath at rest, Sputum production Gastrointestinal: Reports: Abdominal Pain, Nausea, Vomiting Genitourinary: Reports: - - Only noted dark appearing urine.. Denies: Dysuria, Frequency, Urgency Musculoskeletal: Reports: Back Pain. Denies: Joint Pain, Joint Tenderness Skin: Denies: Rash, Wounds Neurological: Denies: Numbness, Tingling, Focal weakness Psychiatric: Reports: Anxiety. Denies: Depression, Homicidal Ideations, Suicidal Ideations Hematologic/ Lymphatic: Denies: Easy Bruising, Easy Bleeding VTE Information - Inpt Only VTE Present on Admission: No VTE Mechan Device Prophylaxis: None VTE Pharm Prophylaxis ordered?: No Reason prophylaxis not ordered:: Treatment Not Indicated Patient Problems: Active and Suspected Problems (Last Reviewed 10/02/19 @ 13:52 by Kyle Mejia) Acute sepsis (Acute) Acute pyelonephritis (Acute) Subjective: Laying in the ED bed, fatigued appearing, recent pain regimen, notes pain improved status post regimen. Objective: Physical Examination: General: awake, alert, oriented x 3 and cooperative, laying in the ED bed, fatigued and ill-appearing. Skin: normal color, turgor, no icterus, cyanosis. HEENT: AT/NC, EOMI, PERRLA, dry MM, no carotid bruits or JVD noted. Lungs: CTA bilaterally, moderate effort, moderate decrease BL bases, no rales, ronchi or wheezing. Heart: Mildly tachycardic with regular rhythm; no gallop, rub audible. Abdomen: soft, significant right sided primarily right upper quadrant discomfort with palpation, rebound and guarding noted, ND, normal BS, very difficult assessment for HSM secondary to severity of pain with evaluation. Extremities: no cyanosis, clubbing, or edema. Neurological: patient awake, alert, oriented x 3; cognitive function intact; pupils equally reactive to light and accomodation; cranial nerves II-XII grossly normal, moving all 4 extremities, no focal deficits, strength severely global decrease secondary to acute presentation. Psychiatric: affect appears uncomfortable, fatigued, ill-appearing, no acute evidence of depressive or anxiety feelings. - Physical Exam Vitals/I&O's: Vital Signs Temp Pulse Resp BP Pulse Ox 100.7 F H 96 20 H 145/80 H 95 11/16/19 04:22 11/16/19 04:22 11/16/19 04:22 11/16/19 04:22 11/16/19 04:22 Oxygen Delivery Method Room Air Weight: 149 lb 14.629 oz Body Mass Index (BMI) 25.7 Intake and Output for Last 24 Hours 11/14/19 11/15/19 11/16/19 23:59 23:59 23:59 Intake Total 1100 / 1100 Balance 1100 / 1100 Laboratory Results 11/16/19 03:17: WBC 25.2 H, RBC 4.08 L, Hgb 12.7, Hct 35.6 L, MCV 87.3, MCH 31.1, MCHC 35.7, RDW Std Deviation 38.7, RDW Coeff of Kathy 12.0, Plt Count 285, MPV 9.6, Immature Gran % (Auto) 0.900, Neut % (Auto) 87.8 H, Lymph % (Auto) 4.5 L, [place] % (Auto) 6.5, Eos % (Auto) 0.1, Baso % (Auto) 0.2, Absolute Neuts (auto) 22.1 H, Absolute Lymphs (auto) 1.14, Nucleated RBC % 0, Differential Comment SCANNED, Diff Path Review August11/16/19 03:17: Sodium 130 L, Potassium 2.5 L*, Chloride 95 L, Carbon Dioxide 24.0, Anion Gap 11, BUN 11, Creatinine 1.05 H, Estim Creat Clear Calc 71.96, Est GFR (MDRD) Af Amer 83, Est GFR (MDRD) Non-Af 69, BUN/Creatinine Ratio 10.5, Glucose 116 H, Calcium 8.4 L, Total Bilirubin 1.00, AST 18, ALT 21, Alkaline Phosphatase 81, Total Protein 7.5, Albumin 3.4, Globulin 4.1, Albumin/Globulin Ratio 0.8 L, Lipase 37 L 11/16/19 03:17: Lactic Acid 1.2 11/16/19 03:17: Serum , Qual NEGATIVE Current Medications Potassium Chloride () 10 meq in 100 mls @ 100 mls/hr IV BOLUS Q1H SUSSY Stop: 11/16/19 08:14 Assessment/Plan All Active Problems (Last Reviewed 10/02/19 @ 13:52 by Kyle Mejia) Acute sepsis (Acute) Acute pyelonephritis (Acute) Anemia associated with acute blood loss (Acute) hemorrhage, delayed (> 24 hrs) (Acute) hemorrhage of vagina (Acute) Missed (Acute) The patient is a 24 y/o F w/ PMHx: Migraines, Hx Polysubstance abuse w/ Methamphetamines, Anxiety and Depression, Former Tobacco use who presents to the [facility] ED on 11/16/19 with history of onset significant abdominal pain primarily severe right upper quadrant pain x2 days, stabbing, 10 out of 10 in severity with associated nausea, emesis and fevers with no related diarrhea radiating toward her right lower back. 1. Acute Severe Sepsis secondary to Acute Complicated Pyelonephritis: Will admit to [facility], awaiting UA but CT A/P notable for findings consistent pyelonephritis, will obtain urine culture once obtained, continue aggressive IV fluids, monitor I's and O's, initially in the ED given IV Cipro and Flagyl secondary to concern for intra-abdominal etiology, will transition to IV Levaquin given allergies w/ transition as able pending sensitivities and speciation. Bld cx x 2 obtained in the ED. Pending G/C testing concurrently. 2. Hyponatremia, hypovolemic: Likely secondary to GI losses secondary to #1, will continue aggressive hydration given septic presentation concurrently, trend CMP in a.m. 3. Hypokalemia: Admission K+ 2.5, magnesium level requested, supplementation given, repeat level later morning to assure improvement. 4. History of polysubstance abuse: History of prior heroin and methamphetamine usage, will obtain HIV and hepatitis panel especially given liver findings. 5. Anxiety and depression: We will continue patient home low-dose Seroquel regimen. 6. Tobacco Abuse: Encouraged cessation, inpatient consultation per RT, NR if desired. 7. DVT prophylaxis: Low risk, encourage ambulation. Inpatient E&M: 71049 Init Hosp L3
[2019-11-16] MEDS: Potassium Chloride 10mEq/100mL 10 MEQ/100 ML IV.SOLN. 100 MEQ IV BOLUS ×4 (05:23→09:07)
[2019-11-16] MEDS: 0.9% Normal Saline 1,000 ML 999 ML IV ×3 (05:24→11:28)
[2019-11-16 06:35] LABS: Magnesium 1.8 mg/dL (1.6-2.6)
[2019-11-16] MEDS: Ketorolac 15 MG/ML Vial IV ×3 (06:42→21:17)
[2019-11-16] MEDS: 0.9% Normal Saline 1,000 ML 150 ML IV ×3 (06:47→21:17)
[2019-11-16 06:55] LABS: Bacteria 0 SEEN /hpf (None Seen); Mucous, Urine 0 SEEN /hpf (<or=2+); Red Blood Cells-Urine 0 SEEN /hpf (0-5)
[2019-11-16 06:57] LABS: Color, Urine Yellow (Yellow); Glucose, Dipstick Normal (Normal); Ketone-Dipstick Negative (Negative); Leukocyte Esterase-Dipstick 500 /ul (Negative); Nitrite-Dipstick Positive (Negative); Occult Blood-Urine 150 /ul (Negative); Protein-Dipstick 100 mg/dl (Negative); Specific Gravity, Urine 1.005 (1.002-1.030); Urine Bilirubin Dipstick Negative (Negative); Urine Clarity Cloudy (Clear); Urine Urobilinogen 1 mg/dl (Normal); Urine pH 6.5 (5.0 - 8.0)
[2019-11-16 07:09] LABS: Squamous Epithelial Cells - UA 5-10 SEEN /hpf (5-10); White Blood Cells >100 SEEN /hpf (0-5)
[2019-11-16 08:37] LABS: Chlamydia Trachomatis by PCR Negative (Negative); Neisserai gonorrhoeae by PCR Negative (Negative); Probe Check PASS; Sample Adequacy Control PASS; Specimen Processing Control PASS
[2019-11-16] MEDS: QUEtiapine 25 MG Tablet PO ×2 (09:07→21:17)
--- NOTE | 2019-11-16 09:40 | NURSING ---
Report given to JELENA Reagan in ICU at this time.
--- NOTE | 2019-11-16 09:56 | NURSING ---
Updated patient's SO, Salo, on patient's transfer to ICU at this time.
--- NOTE | 2019-11-16 10:11 | CASEMGMT ---
According to the [facility] website, the following are in-network tertiary facilities: [facility], [place], [facility], [place], [facility], [facility], [facility], [place], [facility], and . Luis A BOWLES CM
[2019-11-16 10:19] LABS: Absolute Lymphocyte Count 0.69 X10^3/uL (0.83-4.51); Absolute Neutrophil Count 11.6 X10^3/uL (2.0-7.7); Basophil# 0.03 X10^3/uL; Basophil% 0.2 % (0-1); Eosinophil# 0.01 X10^3/uL; Eosinophils% 0.1 % (0-5); Hematocrit 30.6 % (37-47); Hemoglobin 10.4 g/dL (12.0-15.0); Lymphocyte # 0.69 X10^3/ul (4.0); Lymphocyte % 5.3 % (19-41); Mean Corpuscular Hgb 30.9 pg (27.0-32.0); Mean Corpuscular Volume 90.8 fL (81-99); Mean Platelet Vol. 9.9 fl (6.2-12.0); Monocyte# 0.39 X10^3/uL; NRBC Flagged by Analyzer 0 % (0-5); Neutrophil # 11.63 X10^3/uL (2.7-7.7); Neutrophil % 89.6 % (47-70); POSITIVE MORPHOLOGY YES; Platelet Count 188 K/mm3 (150-450); RBC Distribution Width CV 12.5 % (11.6-14.6); RBC Distribution Width SD 41.7 fl (35.1-43.9); Red Blood Count 3.37 M/mm3 (4.2-5.4)
[2019-11-16 10:21] LABS: Differential Indicated SCAN CRITERIA MET
[2019-11-16 10:44] LABS: HIV - WCH Non-Reactive (Nonreactive); Hepatitis B Surface Antibody Non-Reactive; Hepatitis B Surface Antigen Non-Reactive (Nonreactive)
--- NOTE | 2019-11-16 10:45 | NURSING ---
Dr. Calderon at bedside for line insertion
[2019-11-16 10:49] LABS: Dohle Bodies RARE; Hypochromasia RARE; Platelet Estimate ADEQUATE (ADEQ); Red Cell Morphology N CYTIC NORMAL (NORM C&C)
[2019-11-16 10:51] LABS: Hepatitis C Antibody Reactive (Nonreactive)
[2019-11-16 11:02] LABS: Anion Gap 10 (5-15); BUN 10 mg/dL (7-18); BUN/Creat Ratio 10.1 RATIO (10-20); Calcium,Total 6.9 mg/dL (8.5-10.1); Chloride 106 mmol/L (98-107); Creatinine, Serum 0.99 mg/dL (0.55-1.02); EST Glomerular Filtration Rate 74 mL/min (>60); Est Glom Filt Rate - Afr Amer 89 mL/min (>60); Estimated Creatinine Clearance 76.32 ml/min; Glucose 117 mg/dL (74-106); Potassium 2.8 mmol/L (3.5-5.1); Sodium Level 136 mmol/L (136-145)
--- NOTE | 2019-11-16 11:05 | RAD_ITS ---
STUDY: X-RAY CHEST REASON FOR EXAM: Female, 24 years old. Status post central line placement. TECHNIQUE: Single AP portable view of the chest. COMPARISON: 11/14/2017 FINDINGS: There is a right internal jugular central venous catheter with its tip in the atriocaval junction region. Elevation of the right hemidiaphragm. Hypoventilatory changes in the right lung base. There is no demonstrated pleural abnormality. Normal size heart. Normal mediastinum and micheal. Normal visualized pulmonary arteries. Normal visualized aortic arch and descending thoracic aorta. Normal visualized thoracic spine. Normal visualized ribs, clavicles, and shoulders. There is no demonstrated abnormality of the visualized soft tissue structures of the upper abdomen. RAD/CXR for Line Placement IMPRESSION: Status post right internal jugular central venous catheter placement. No active pulmonary disease. Electronically Signed: Rafa Torres MD at 12:19 EDT Tel , Service support ,
--- NOTE | 2019-11-16 11:31 | PCM.OP.PRO ---
Procedure Report Date of Procedure: 11/16/19 RIght internal jugular central line placement Location: Septic shock due to right pyelonephritis Patient was placed in a dependent position appropriate for central line placement. Right neck and shoulder area were prepped and draped in sterile fashion. 1% lidocaine was used to anesthetize the surrounding area. Under sterile precautions, triple-lumen catheter was inserted into the right internal jugular vein using the Seldinger technique and under ultrasound guidance. The catheter was threaded smoothly over the guidewire and appropriate blood return was obtained. Each lumen of the catheter was evacuated of air and flushed with normal saline. The catheter was then sutured in place to the skin and a sterile dressing was applied. A postprocedure chest x-ray was ordered to confirm placement. Chest x-ray showed right internal jugular central venous catheter with tip in the atrial caval junction region. Procedures: [id number] Insert Non-tunnel CV Cath
--- NOTE | 2019-11-16 11:44 | PCM.PN.HOSP ---
Patient Problems: Active and Suspected Problems (Last Reviewed 10/02/19 @ 13:52 by Kyle Mejia) Acute sepsis (Acute) Acute pyelonephritis (Acute) Sepsis (Acute) Pyelonephritis (Acute) Subjective: Patient seen and examined. She was admitted with a complaint of abdominal pain, nausea and vomiting and is been managed for severe sepsis due to pyelonephritis. She was admitted to PCU and started on IV fluids and IV levofloxacin. She is allergic to penicillins. Hospitalist was called to see patient emergently this morning as patient's blood pressure was down in the 70s systolic. Patient looked very pale, was alert but very lethargic. Pulse was weak and thready. Patient was emergently transferred to ICU. In the ICU, blood pressure still running low. Antibiotics were switched to IV meropenem and IV vancomycin. Central line was inserted as patient was getting 10 mg of Levophed through the peripheral line but map was still less than 65. Critical care consulted. At time of review, patient still complained of pain in her right flank but denied any fever or chills, nausea vomiting or diarrhea. Review of systems otherwise negative. Vitals/I&O's: Vital Signs Temp Pulse Resp BP Pulse Ox 96.5 F L 99 31 H 80/55 L 97 11/16/19 09:57 11/16/19 10:32 11/16/19 10:32 11/16/19 10:32 11/16/19 10:32 Oxygen Flow Rate (L/min) 2 Oxygen Delivery Method Nasal Cannula Weight: 151 lb 7.321 oz Body Mass Index (BMI) 25.9 Intake and Output for Last 24 Hours 11/14/19 11/15/19 11/16/19 23:59 23:59 23:59 Intake Total 3701.72 / 3701.72 Balance 3701.72 / 3701.72 General: Alert, Lethargic HEENT: Atraumatic, PERRLA, EOMI, Normocephalic Oral: Dry Mucosa Neck: Supple, No JVD, Negative Carotid Bruits Lungs: Clear to auscultation, Normal air movement, No rhonchi, Tachypneic Cardiovascular: Tachycardic Abdomen: Bowel Sounds Present, Soft, Non Tender, Non-Distended, No Hepato-splenomegaly, - - has right costophrenic angle tenderness, mild generalised abdominal pain, no guarding or rebound tenderness Extremities: No clubbing, No cyanosis, No edema, Capillary Refill Less than 3 Seconds Skin: No rashes, No breakdown Musculoskeletal: No Tenderness to Palpation of Joints or Extremities Lymphatic: No Cervical, Supraclavicular, or Inguinal Adenopathy Neurological: Cranial nerves II-XII grossly intact, - - patient is lethargic, able to answer questions, moving all extremities Psych/Mental Status: - - lethargic Laboratory Results 11/16/19 03:17: WBC 25.2 H, RBC 4.08 L, Hgb 12.7, Hct 35.6 L, MCV 87.3, MCH 31.1, MCHC 35.7, RDW Std Deviation 38.7, RDW Coeff of Kathy 12.0, Plt Count 285, MPV 9.6, Immature Gran % (Auto) 0.900, Neut % (Auto) 87.8 H, Lymph % (Auto) 4.5 L, [place] % (Auto) 6.5, Eos % (Auto) 0.1, Baso % (Auto) 0.2, Absolute Neuts (auto) 22.1 H, Absolute Lymphs (auto) 1.14, Nucleated RBC % 0, Differential Comment SCANNED, Diff Path Review August foll 11/16/19 03:17: Sodium 130 L, Potassium 2.5 L*, Chloride 95 L, Carbon Dioxide 24.0, Anion Gap 11, BUN 11, Creatinine 1.05 H, Estim Creat Clear Calc 71.96, Est GFR (MDRD) Af Amer 83, Est GFR (MDRD) Non-Af 69, BUN/Creatinine Ratio 10.5, Glucose 116 H, Calcium 8.4 L, Total Bilirubin 1.00, AST 18, ALT 21, Alkaline Phosphatase 81, Total Protein 7.5, Albumin 3.4, Globulin 4.1, Albumin/Globulin Ratio 0.8 L, Lipase 37 L 11/16/19 03:17: Lactic Acid 1.2 11/16/19 03:17: Serum , Qual NEGATIVE 11/16/19 03:17: Magnesium 1.8 11/16/19 03:17: Hepatitis A IgM Ab Cancelled, Hepatitis A Ab Total Cancelled, Hepatitis A Interp Cancelled, Hep Bs Antigen Cancelled, Hep Bs Ag Confirmation Cancelled, Hep B Surface Ag Comm Cancelled, Hep Bs Antibody Interp Cancelled, Hep B Core Total Ab Cancelled, Hep B Core IgM Ab Cancelled, Hepatitis C Ab Confirm Cancelled, Hep C Confirm Com 1 Cancelled 11/16/19 03:17: Hep Bs Antigen Non-Reactive, Hep Bs Antibody Non-Reactive, Hepatitis C Antibody Reactive, HIV 1&2 Antibody Non-Reactive 11/16/19 06:45: Urine Color Yellow, Urine Clarity Cloudy, Urine pH 6.5, Ur Specific [place] 1.005, Urine Protein 100 H, Urine Glucose (UA) Normal, Urine Ketones Negative, Urine Occult Blood 150 H, Urine Nitrite Positive H, Urine Bilirubin Negative, Urine Urobilinogen 1 H, Ur Leukocyte Esterase 500 H, Urine RBC 0 SEEN, Urine WBC >100 SEEN, Ur Squamous Epith Cells 5-10 SEEN, Urine Bacteria 0 SEEN, Urine Mucus 0 SEEN 11/16/19 06:45: Chlam trachomat DNA PCR Negative, N.gonorrhoeae DNA (PCR) Negative 11/16/19 10:10: Sodium 136, Potassium 2.8 L, Chloride 106, Carbon Dioxide 20.0 L, Anion Gap 10, BUN 10, Creatinine 0.99, Estim Creat Clear Calc 76.32, Est GFR (MDRD) Af Amer 89, Est GFR (MDRD) Non-Af 74, BUN/Creatinine Ratio 10.1, Glucose 117 H, Calcium 6.9 L 11/16/19 10:10: WBC 13.0 H, RBC 3.37 L, Hgb 10.4 L, Hct 30.6 L, MCV 90.8, MCH 30.9, MCHC 34.0, RDW Std Deviation 41.7, RDW Coeff of Kathy 12.5, Plt Count 188, MPV 9.9, Immature Gran % (Auto) 1.800 H, Neut % (Auto) 89.6 H, Lymph % (Auto) 5.3 L, [place] % (Auto) 3.0, Eos % (Auto) 0.1, Baso % (Auto) 0.2, Absolute Neuts (auto) 11.6 H, Absolute Lymphs (auto) 0.69 L, Nucleated RBC % 0, Dohle Bodies RARE, Platelet Estimate ADEQUATE, RBC Morphology N CYTIC, Hypochromasia RARE Diagnostic Data Gallbladder Ultrasound 11/16/19 02:57 IMPRESSION: Possible focal fatty deposition into the liver as above, however increased since previous examination. As this has changed the previous ultrasound examination, consideration of a noncontrast and contrast-enhanced dynamic CT liver or MRI is recommended for better delineation exclusion off other pathology. Markedly distended gallbladder containing sludge, however no wall thickening or ultrasonographic Macias''s sign to suggest acute cholecystitis. Partially obscured pancreas tail. Electronically Signed: Bianka Fulton MD at 4:56 EDT , Service support , ADDENDUM: 11/16/19 0515 Abdomen/Pelvis CT 11/16/19 04:26 IMPRESSION: Findings suggestive of pyelonephritis/ureteritis of the right genitourinary system. Distended gallbladder, no gallbladder inflammation or sludge detected. Injuries involving the liver along the falciform ligament likely focal fatty sparing. Changes along the liver parenchyma periphery on ultrasound is not demonstrated. There is no appendicitis, colitis, abscess, collection, perforation or obstruction. Intrauterine device in suboptimal positioning. Right involuting ovarian cyst/follicles. Electronically Signed: Bianka Fulton MD at 5:05 EDT , Service support , Current Medications Acetaminophen (Tylenol) 650 mg PO Q6H PRN PRN PRN Reason: Pain Score 1-10/Temp > 100.7 F Al Hydroxide/Mg Hydroxide (Mylanta Ii) 30 ml PO Q6H PRN PRN PRN Reason: Gastric Burning Albuterol Sulfate (Ventolin Aerosols) 2.5 mg INHALATION Q2H PRN PRN PRN Reason: Dyspnea, wheezing Guaifenesin (Robitussin) 20 ml PO Q4H PRN PRN PRN Reason: COUGH Hydralazine HCl (Apresoline Iv) 10 mg IV Q4H PRN PRN PRN Reason: SBP > 160 Hydromorphone HCl (Dilaudid Inj) 1 mg IV Q4H PRN PRN PRN Reason: Pain Score 6-10/10 Sodium Chloride () 1,000 mls @ 150 mls/hr IV .[id number] SUSSY Last Admin: 11/16/19 06:47 Dose: 150 mls/hr Documented by: Sodium Chloride () 250 mls @ 15 mls/hr IV .[id number] PRN PRN Reason: Saline Flush Sodium Chloride () 250 mls @ 15 mls/hr IV .[id number] PRN PRN Reason: Additional IVPB Infusion Meropenem 1 gm/ Sodium (Chloride) 120 mls @ 33 mls/hr IV Q8 [facility] Last Admin: 11/16/19 10:47 Dose: 33 mls/hr Documented by: Norepinephrine Bitartrate 8 mg (/ Sodium Chloride) 250 mls @ 9.375 mls/hr CONT INF .[id number] [facility]; Protocol Last Titration: 11/16/19 10:25 Dose: 10 mcg/min, 18.8 mls/hr Documented by: Vancomycin IV Pharmacy to Dose (1 ea/ Sodium Chloride) 500 mls @ 250 mls/hr IV X1 PRN; Protocol PRN Reason: Rx to Dose Vancomycin HCl 1,750 mg/ (Sodium Chloride) 535 mls @ 250 mls/hr IV X1 ONE Stop: 11/16/19 13:08 Vancomycin HCl (Vancomycin) 1,000 mg in 200 mls @ 200 mls/hr IV Q12H [facility] Ketorolac Tromethamine (Toradol (Bkc)) 15 mg IV Q8 [facility] Stop: 11/16/19 22:01 Last Admin: 11/16/19 06:42 Dose: 15 mg Documented by: Magnesium Hydroxide (Milk Of Magnesia) 30 ml PO DAILY PRN PRN PRN Reason: Constipation Nicotine (Nicoderm Cq (Pbkc)) 14 mg TRANSDERM. DAILY [facility] Last Admin: 11/16/19 09:06 Dose: Not Given Documented by: Ondansetron HCl (Zofran) 4 mg IV Q8H PRN PRN PRN Reason: NAUSEA/VOMITING Oxycodone HCl (Oxyir) 10 mg PO Q4H PRN PRN PRN Reason: Pain Score 4-5/10 Prochlorperazine Edisylate (Compazine Iv) 5 mg IV Q4H PRN PRN PRN Reason: Breakthrough nausea/vomiting Psyllium Hydrophilic Mucilloid (Metamucil) 1 packet PO DAILY PRN PRN PRN Reason: Constipation Quetiapine Fumarate (Seroquel) 25 mg PO BID [facility] Last Admin: 11/16/19 09:07 Dose: 25 mg Documented by: Senna/Docusate Sodium (Senokot-S, Alejandrina-Colace) 2 tablet PO BID PRN PRN PRN Reason: Constipation Sodium Chloride () 10 - 40 ml IV UD PRN PRN Reason: SALINE FLUSH Temazepam (Restoril) 15 mg PO QHS PRN PRN PRN Reason: INSOMNIA Throat Lozenges (Cepacol Sore Throat Lozenge) 1 lozenge MUCOUS MEM Q2H PRN PRN PRN Reason: SORE THROAT STROKE Vital Signs/Narrative: Vital Signs Temp Pulse Resp BP BP Pulse Ox 11/16/19 10:32 99 31 H 80/55 L 97 11/16/19 10:30 96 11/16/19 10:25 68/51 L 11/16/19 10:21 61/41 L 11/16/19 10:18 59/38 L 11/16/19 10:15 93 31 H 59/38 L 97 11/16/19 09:57 96.5 F L 91 33 H 71/46 L 95 11/16/19 09:03 98.6 F 118 H 22 H 74/38 L 92 11/16/19 07:54 102.3 F H 117 H 22 H 85/41 L 92 Medical Necessity - Tobacco Use Smoking Status: Current every day smoker Tobacco Use: Cigarettes Assessment/Plan All Active Problems (Last Reviewed 10/02/19 @ 13:52 by Kyle Mejia) Acute sepsis (Acute) Acute pyelonephritis (Acute) Sepsis (Acute) Pyelonephritis (Acute) Anemia associated with acute blood loss (Acute) hemorrhage, delayed (> 24 hrs) (Acute) hemorrhage of vagina (Acute) Missed (Acute) 1. Septic shock due to right pyelonephritis patient emergently transferred to ICU from PCU WBC has trended down to 13. However blood pressure dropped to the 60s systolic. She required initiation of Levophed as well as IV fluids. Critical care consulted. Antibiotics broadened to IV vancomycin and meropenem. Blood cultures and urine cultures pending. Still remains tachycardic and tachypneic with elevated white cell count. Will get 2D echo Central line to be placed for patient to be given vasopressors as needed for blood pressure support. 2. Hyponatremia: Resolved. Sodium is up to 136 3. Right pyelonephritis: CAT scan showed pyelonephritis and detritus of the right joint mid to urinary system as well as distended gallbladder but no gallbladder inflammation or sludge detected. Management as under 1. 4. Hypokalemia: Potassium is 2.8. Will replace and monitor. 5. Anxiety and depression: On Seroquel 6. History of polysubstance abuse. Has a history of prior heroin and methamphetamine usage. Stable. DVT prophylaxis: start Lovenox CODE STATUS: Full code Patient counseled extensively about different types of CODE STATUS including full code, DNR CCA and DNR CCA. Patient elects to be full code. Total [id number] time 17 minutes. Inpatient E&M: 75908 Subs Hosp L3 Procedures: 55439 Advncd Care Plan 30 Min
[2019-11-16] MEDS: 0.9% Saline Lock 10 ML Syringe IV (11:55)
--- NOTE | 2019-11-16 12:04 | ECHOD_ITS ---
Reason For Study: Septic shock Procedure This was a 2D Doppler, Color Flow transthoracic echocardiogram. Exam performed portable in ICU/CCU. Left Ventricle Normal LV size. Left ventricular systolic function is normal. The estimated ejection fraction is 55 %. Normal diastology for age. No regional wall motion abnormalities noted. Right Ventricle Normal RV size. Normal systolic function. Atria Normal left atrium. Normal right atrium. Mitral Valve Normal mitral valve. Tricuspid Valve Normal tricuspid valve. Mild tricuspid valve insufficiency. Pulmonary artery systolic pressure is 30 mmHg. Aortic Valve Normal aortic valve. Pulmonic Valve Normal pulmonic valve. Great Vessels Normal aortic root. The pulmonary artery is normal size. Normal inferior vena cava. Pericardium/Pleural No pericardial effusion. MMode/2D Measurements & Calculations LVIDd: 5.0 cm IVSd: 0.87 cm Ao root diam: 2.7 cm LVIDs: 3.4 cm LVPWd: 0.90 cm RVDd: 3.2 cm FS: 30.7 % LAV(MOD-bp): 44.3 ml LA A4 area: 16.4 cm2 LA dimension(2D): 3.8 cm LAV(MOD-bp) Indexed: 24.6 ml/m2 LAV(MOD-sp2): 43.3 ml LAV(MOD-sp4): 41.4 ml RA A4 area: 14.8 cm2 Doppler Measurements & Calculations MV E max redd: 137.5 cm/sec Lat Peak E' Redd: 16.2 cm/sec Med Peak E' Redd: 10.8 cm/sec MV A max redd: 73.9 cm/sec E/E' lat: 8.5 E/E' med: 12.8 MV E/A: 1.9 Ao V2 max: 152.5 cm/sec LV V1 max: 125.4 cm/sec PA V2 max: 120.2 cm/sec Ao max P.3 mmHg LV V1 max P.3 mmHg TR max redd: 256.0 cm/sec TR max P.2 mmHg Interpretation Summary Normal LV size. Left ventricular systolic function is normal. The estimated ejection fraction is 55 %. Normal diastology for age. Pulmonary artery systolic pressure is 30 mmHg. Ordering Physician: Audrey Calderon Referring Physician: Denisha Vernon Performed By: Luci Corona RDCS
[2019-11-17] VITALS (63 sets, daily range): BP systolic 80–122; BP diastolic 44–92; PULSE 73–118; RESP 10–39; TEMP 36.2–39.4; O2SAT 91–100
[2019-11-17] MEDS: Vancomycin IV 1,000 MG/200 ML BAG 200 MG IV ×3 (00:13→22:14)
[2019-11-17] MEDS: oxyCODONE 5 MG Tablet 10 MG PO ×3 (03:23→19:44)
[2019-11-17 03:53] LABS: Absolute Lymphocyte Count 0.53 X10^3/uL (0.83-4.51); Absolute Neutrophil Count 12.9 X10^3/uL (2.0-7.7); Basophil# 0.03 X10^3/uL; Basophil% 0.2 % (0-1); Eosinophil# 0.01 X10^3/uL; Eosinophils% 0.1 % (0-5); Hematocrit 28.8 % (37-47); Hemoglobin 9.8 g/dL (12.0-15.0); Lymphocyte # 0.53 X10^3/ul (4.0); Lymphocyte % 3.6 % (19-41); Mean Corpuscular Hgb 30.7 pg (27.0-32.0); Mean Corpuscular Volume 90.3 fL (81-99); Mean Platelet Vol. 10.1 fl (6.2-12.0); Monocyte# 1.11 X10^3/uL; Monocyte% 7.5 % (0-10); NRBC Flagged by Analyzer 0 % (0-5); Neutrophil # 12.85 X10^3/uL (2.7-7.7); POSITIVE DIFFERENTIAL YES; Platelet Count 215 K/mm3 (150-450); RBC Distribution Width CV 12.5 % (11.6-14.6); RBC Distribution Width SD 41.5 fl (35.1-43.9); Red Blood Count 3.19 M/mm3 (4.2-5.4); White Blood Count 14.8 K/mm3 (4.4-11.0)
[2019-11-17 03:55] LABS: Differential Indicated SCAN CRITERIA MET
[2019-11-17 04:06] LABS: ALB/GLOB Ratio 0.6 RATIO (0.9-2.4); AST(SGOT) 24 U/L (15-37); Alanine Aminotransfer ALT/SGPT 32 U/L (13-56); Alkaline Phosphatase 69 U/L (45-117); Anion Gap 7 (5-15); BUN 7 mg/dL (7-18); BUN/Creat Ratio 11.8 RATIO (10-20); Calcium,Total 6.8 mg/dL (8.5-10.1); Chloride 112 mmol/L (98-107); Creatinine, Serum 0.59 mg/dL (0.55-1.02); EST Glomerular Filtration Rate 134 mL/min (>60); Est Glom Filt Rate - Afr Amer 162 mL/min (>60); Estimated Creatinine Clearance 128.06 ml/min; Globulin 3.1 g/dL (2.2-4.2); Glucose 94 mg/dL (74-106); Potassium 2.9 mmol/L (3.5-5.1); Protein, Total 5.1 g/dL (6.4-8.2); Sodium Level 140 mmol/L (136-145)
[2019-11-17] MEDS: Acetaminophen 325 MG Tablet 650 MG PO ×2 (04:24→16:17)
[2019-11-17] MEDS: 0.9% Normal Saline 1,000 ML 150 ML IV ×3 (04:25→19:48)
[2019-11-17 04:27] LABS: Differential Comment SCANNED
--- NOTE | 2019-11-17 06:22 | CON.PCM_ITS ---
Reason for Consult Date of Consultation: 11/17/19 Reason for Consultation: Septic shock History of Present Illness: The patient is a 24-year-old female, with a history as outlined below, who presented to the emergency department on November 15 with complaints of abdominal pain, nausea and vomiting. The patient reported that her symptoms had been present for approximately 48 hours prior to presentation. She reported a great deal of associated malaise and fatigue. She denied ever having experienced any similar episodes to this previously. She denied any urinary urgency or frequency. The patient does have a history of polysubstance use including daily tobacco utilization and a history of methamphetamine use, for which she has reportedly been abstinent for the last 3 months. The patient does have a history of unprotected sex, but states that she is in a monogamous relationship. She denies a known history of sexually transmitted diseases. On presentation to the emergency department, the patient was noted to be febrile with a temperature of 103.3 ?F. She was additionally noted to be tachycardic and tachypneic. Laboratory evaluation revealed an elevated white blood cell count to 25,000. Chemistry profile was notable for a sodium of 130, potassium of 2.5, chloride of 95 and creatinine of 1.05. Lactate was normal at 1.2. Urine analysis was positive for nitrites and leukocyte esterase. CT abdomen/pelvis revealed findings suggestive of pyelonephritis along with a distended gallbladder without inflammation or sludge detected. The patient received supplemental IV fluid hydration along with empiric antimicrobials. She was initially admitted to the progressive care unit for further management. During the spiral binder hours of November 15, the patient became hemodynamically unstable. She developed fluid refractory hypotension, which required transfer to the medical intensive care unit. A central venous catheter was placed and the patient was initiated on vasopressor support. The patient was febrile overnight. However, she does report improvement in her abdominal pain and nausea. She is currently on broad-spectrum antimicrobials including vancomycin and meropenem. She remains on Levophed at 10 mcg/min. Past Medical History Past Medical History (Chronic Problems): Chronic Problems Polysubstance abuse (Chronic) Anxiety (Chronic) Tobacco use (Chronic) Medical History: Medical History (Last Reviewed 10/02/19 @ 13:52 by Kyle Mejia) History of drug abuse F19.11 History of emotional problems Z86.59 History of gallstones Z87.19 Chronic migraine G43.709 Allergies Penicillins [PCN] Allergy (Verified 10/02/19 13:52) Anaphylaxis Home Medications: Ambulatory Orders Medication Instructions Recorded acetaminophen 500 mg tablet 500 mg PO BID PRN #60 tab 10/02/19 ibuprofen 400 mg tablet 400 mg PO Q8H PRN #60 tab 10/02/19 quetiapine 25 mg tablet 25 mg PO BID #60 tab 10/02/19 Surgical History: - - D+C x 3. Psychiatric History: Anxiety [employer] History: - - Several D+Cs Lives: Spouse/ Significant Other Smoking Status: Current every day smoker Tobacco Use: Cigarettes Alcohol: None Drugs: - - Patient notes being clean x3-month, admits to methamphetamine use however records do also indicate heroin use which she denies. - *Family History Maternal Family History: Family History (Last Reviewed 10/02/19 @ 13:52 by Kyle Mejia) Father Alcoholism Anxiety Depression Hypertension Suicide Mother Thyroid disorder History Items: - - thyroid disease Paternal Family History: Family History (Last Reviewed 10/02/19 @ 13:52 by Kyle Mejia) Father Alcoholism Anxiety Depression Hypertension Suicide Mother Thyroid disorder History Items: Hypertension, - - Father with concurrent history of alcoholism, anxiety and depression with suicide. Sibling Family History: Family History (Last Reviewed 10/02/19 @ 13:52 by Kyle Mejia) Father Alcoholism Anxiety Depression Hypertension Suicide Mother Thyroid disorder History Items: - - thyroid disease Review of Systems Constitutional: Reports: Anorexia, Chills, Fever, Malaise, Weakness, Fatigue Eyes: Denies: Blurred vision, Double vision HEENT: Denies: Head Aches, Sinus Congestion, Sinus Drainage Cardiovascular: Denies: Chest Pain, Palpitations Respiratory: Denies: Cough, Shortness of breath at rest, Sputum production Gastrointestinal: Reports: Abdominal Pain, Nausea, Vomiting Genitourinary: Denies: Dysuria Musculoskeletal: Denies: Joint Pain, Joint Tenderness Neurological: Denies: Numbness, Tingling, Focal weakness Psychiatric: Denies: Anxiety, Depression, Homicidal Ideations, Suicidal Ideations Hematologic/ Lymphatic: Denies: Easy Bruising, Easy Bleeding Patient Problems: Active and Suspected Problems (Last Reviewed 10/02/19 @ 13:52 by Kyle Mejia) Acute sepsis (Acute) Acute pyelonephritis (Acute) Sepsis (Acute) Pyelonephritis (Acute) Objective: The patient's most recent lab work, culture data and imaging studies have all been personally reviewed. CT abdomen/pelvis revealed findings suggestive of pyelonephritis without hydronephrosis or nonobstructing renal or ureteral calculus. Blood and urine cultures are pending. Prior urine culture from November 2017 was positive for E. coli. - Physical Exam Vitals/I&O's: Vital Signs Temp Pulse Resp BP Pulse Ox 100.2 F H 108 H 14 96/65 93 11/17/19 01:00 11/17/19 03:36 11/17/19 03:00 11/17/19 03:00 11/17/19 05:06 Oxygen Flow Rate (L/min) 2 Oxygen Delivery Method Nasal Cannula Weight: 151 lb 7.321 oz Body Mass Index (BMI) 25.9 Intake and Output for Last 24 Hours 11/15/19 11/16/19 11/17/19 23:59 23:59 23:59 Intake Total 7743.28 / 7752.68 1385.8 / 1385.8 Output Total 985 / 1185 300 / 300 Balance 6758.28 / 6567.68 1085.8 / 1085.8 General: Alert, Cooperative, - - Ill in appearance HEENT: Atraumatic, PERRLA, Normocephalic Oral: Dry Mucosa Neck: Supple, No Nodes, Trachea Midline Lungs: Normal air movement, No rhonchi, No wheeze, No rales Cardiovascular: Normal S1, Normal S2, No murmurs, Tachycardic Abdomen: Bowel Sounds Present, Soft, Non Tender Extremities: No clubbing, No cyanosis, No edema Skin: No breakdown Musculoskeletal: No Muscle Wasting Lymphatic: No Cervical, Supraclavicular, or Inguinal Adenopathy Neurological: Cranial nerves II-XII grossly intact, Neuro grossly intact Psych/Mental Status: Normal Affect, Appropriate Labs (Last 48 Hours) 11/16/19 11/16/19 11/16/19 03:17 03:17 03:17 WBC 25.2 H RBC 4.08 L Hgb 12.7 Hct 35.6 L MCV 87.3 MCH 31.1 MCHC 35.7 RDW Std Deviation 38.7 RDW Coeff of Kathy 12.0 Plt Count 285 MPV 9.6 Immature Gran % (Auto) 0.900 Neut % (Auto) 87.8 H Lymph % (Auto) 4.5 L Ul[place] % (Auto) 6.5 Eos % (Auto) 0.1 Baso % (Auto) 0.2 Absolute Neuts (auto) 22.1 H Absolute Lymphs (auto) 1.14 Nucleated RBC % 0 Differential Comment SCANNED Diff Path Review May foll Dohle Bodies Platelet Estimate RBC Morphology Hypochromasia Sodium 130 L Potassium 2.5 L* Chloride 95 L Carbon Dioxide 24.0 Anion Gap 11 BUN 11 Creatinine 1.05 H Estim Creat Clear Calc 71.96 Est GFR (MDRD) Af Amer 83 Est GFR (MDRD) Non-Af 69 BUN/Creatinine Ratio 10.5 Glucose 116 H Lactic Acid 1.2 Calcium 8.4 L Magnesium Total Bilirubin 1.00 AST 18 ALT 21 Alkaline Phosphatase 81 Total Protein 7.5 Albumin 3.4 Globulin 4.1 Albumin/Globulin Ratio 0.8 L Lipase 37 L Serum , Qual Urine Color Urine Clarity Urine pH Ur Specific [place] Urine Protein Urine Glucose (UA) Urine Ketones Urine Occult Blood Urine Nitrite Urine Bilirubin Urine Urobilinogen Ur Leukocyte Esterase Urine RBC Urine WBC Ur Squamous Epith Cells Urine Bacteria Urine Mucus Chlam trachomat DNA PCR Hepatitis A IgM Ab Hepatitis A Ab Total Hepatitis A Interp Hep Bs Antigen Hep Bs Ag Confirmation Hep B Surface Ag Comm Hep Bs Antibody Hep Bs Antibody Interp Hep B Core Total Ab Hep B Core IgM Ab Hepatitis C Antibody Hepatitis C Ab Confirm Hep C Confirm Com 1 HIV 1&2 Antibody N.gonorrhoeae DNA (PCR) 11/16/19 11/16/19 11/16/19 03:17 03:17 03:17 WBC RBC Hgb Hct MCV MCH MCHC RDW Std Deviation RDW Coeff of Kathy Plt Count MPV Immature Gran % (Auto) Neut % (Auto) Lymph % (Auto) [place] % (Auto) Eos % (Auto) Baso % (Auto) Absolute Neuts (auto) Absolute Lymphs (auto) Nucleated RBC % Differential Comment Diff Path Review Dohle Bodies Platelet Estimate RBC Morphology Hypochromasia Sodium Potassium Chloride Carbon Dioxide Anion Gap BUN Creatinine Estim Creat Clear Calc Est GFR (MDRD) Af Amer Est GFR (MDRD) Non-Af BUN/Creatinine Ratio Glucose Lactic Acid Calcium Magnesium 1.8 Total Bilirubin AST ALT Alkaline Phosphatase Total Protein Albumin Globulin Albumin/Globulin Ratio Lipase Serum , Qual NEGATIVE Urine Color Urine Clarity Urine pH Ur Specific [place] Urine Protein Urine Glucose (UA) Urine Ketones Urine Occult Blood Urine Nitrite Urine Bilirubin Urine Urobilinogen Ur Leukocyte Esterase Urine RBC Urine WBC Ur Squamous Epith Cells Urine Bacteria Urine Mucus Chlam trachomat DNA PCR Hepatitis A IgM Ab Cancelled Hepatitis A Ab Total Cancelled Hepatitis A Interp Cancelled Hep Bs Antigen Cancelled Hep Bs Ag Confirmation Cancelled Hep B Surface Ag Comm Cancelled Hep Bs Antibody Hep Bs Antibody Interp Cancelled Hep B Core Total Ab Cancelled Hep B Core IgM Ab Cancelled Hepatitis C Antibody Hepatitis C Ab Confirm Cancelled Hep C Confirm Com 1 Cancelled HIV 1&2 Antibody N.gonorrhoeae DNA (PCR) 11/16/19 11/16/19 11/16/19 03:17 06:45 06:45 WBC RBC Hgb Hct MCV MCH MCHC RDW Std Deviation RDW Coeff of Kathy Plt Count MPV Immature Gran % (Auto) Neut % (Auto) Lymph % (Auto) [place] % (Auto) Eos % (Auto) Baso % (Auto) Absolute Neuts (auto) Absolute Lymphs (auto) Nucleated RBC % Differential Comment Diff Path Review Dohle Bodies Platelet Estimate RBC Morphology Hypochromasia Sodium Potassium Chloride Carbon Dioxide Anion Gap BUN Creatinine Estim Creat Clear Calc Est GFR (MDRD) Af Amer Est GFR (MDRD) Non-Af BUN/Creatinine Ratio Glucose Lactic Acid Calcium Magnesium Total Bilirubin AST ALT Alkaline Phosphatase Total Protein Albumin Globulin Albumin/Globulin Ratio Lipase Serum , Qual Urine Color Yellow Urine Clarity Cloudy Urine pH 6.5 Ur Specific [place] 1.005 Urine Protein 100 H Urine Glucose (UA) Normal Urine Ketones Negative Urine Occult Blood 150 H Urine Nitrite Positive H Urine Bilirubin Negative Urine Urobilinogen 1 H Ur Leukocyte Esterase 500 H Urine RBC 0 SEEN Urine WBC >100 SEEN Ur Squamous Epith Cells 5-10 SEEN Urine Bacteria 0 SEEN Urine Mucus 0 SEEN Chlam trachomat DNA PCR Negative Hepatitis A IgM Ab Hepatitis A Ab Total Hepatitis A Interp Hep Bs Antigen Non-Reactive Hep Bs Ag Confirmation Hep B Surface Ag Comm Hep Bs Antibody Non-Reactive Hep Bs Antibody Interp Hep B Core Total Ab Hep B Core IgM Ab Hepatitis C Antibody Reactive Hepatitis C Ab Confirm Hep C Confirm Com 1 HIV 1&2 Antibody Non-Reactive N.gonorrhoeae DNA (PCR) Negative 11/16/19 11/16/19 11/17/19 10:10 10:10 03:30 WBC 13.0 H 14.8 H RBC 3.37 L 3.19 L Hgb 10.4 L 9.8 L Hct 30.6 L 28.8 L MCV 90.8 90.3 MCH 30.9 30.7 MCHC 34.0 34.0 RDW Std Deviation 41.7 41.5 RDW Coeff of Kathy 12.5 12.5 Plt Count 188 215 MPV 9.9 10.1 Immature Gran % (Auto) 1.800 H 1.600 H Neut % (Auto) 89.6 H 87.0 H Lymph % (Auto) 5.3 L 3.6 L Ulster % (Auto) 3.0 7.5 Eos % (Auto) 0.1 0.1 Baso % (Auto) 0.2 0.2 Absolute Neuts (auto) 11.6 H 12.9 H Absolute Lymphs (auto) 0.69 L 0.53 L Nucleated RBC % 0 0 Differential Comment SCANNED Diff Path Review Dohle Bodies RARE Platelet Estimate ADEQUATE RBC Morphology N CYTIC Hypochromasia RARE Sodium 136 Potassium 2.8 L Chloride 106 Carbon Dioxide 20.0 L Anion Gap 10 BUN 10 Creatinine 0.99 Estim Creat Clear Calc 76.32 Est GFR (MDRD) Af Amer 89 Est GFR (MDRD) Non-Af 74 BUN/Creatinine Ratio 10.1 Glucose 117 H Lactic Acid Calcium 6.9 L Magnesium Total Bilirubin AST ALT Alkaline Phosphatase Total Protein Albumin Globulin Albumin/Globulin Ratio Lipase Serum , Qual Urine Color Urine Clarity Urine pH Ur Specific [place] Urine Protein Urine Glucose (UA) Urine Ketones Urine Occult Blood Urine Nitrite Urine Bilirubin Urine Urobilinogen Ur Leukocyte Esterase Urine RBC Urine WBC Ur Squamous Epith Cells Urine Bacteria Urine Mucus Chlam trachomat DNA PCR Hepatitis A IgM Ab Hepatitis A Ab Total Hepatitis A Interp Hep Bs Antigen Hep Bs Ag Confirmation Hep B Surface Ag Comm Hep Bs Antibody Hep Bs Antibody Interp Hep B Core Total Ab Hep B Core IgM Ab Hepatitis C Antibody Hepatitis C Ab Confirm Hep C Confirm Com 1 HIV 1&2 Antibody N.gonorrhoeae DNA (PCR) 11/17/19 03:30 WBC RBC Hgb Hct MCV MCH MCHC RDW Std Deviation RDW Coeff of Kathy Plt Count MPV Immature Gran % (Auto) Neut % (Auto) Lymph % (Auto) [place] % (Auto) Eos % (Auto) Baso % (Auto) Absolute Neuts (auto) Absolute Lymphs (auto) Nucleated RBC % Differential Comment Diff Path Review Dohle Bodies Platelet Estimate RBC Morphology Hypochromasia Sodium 140 Potassium 2.9 L Chloride 112 H Carbon Dioxide 21.0 Anion Gap 7 BUN 7 Creatinine 0.59 Estim Creat Clear Calc 128.06 Est GFR (MDRD) Af Amer 162 Est GFR (MDRD) Non-Af 134 BUN/Creatinine Ratio 11.8 Glucose 94 Lactic Acid Calcium 6.8 L Magnesium Total Bilirubin 0.60 AST 24 ALT 32 Alkaline Phosphatase 69 Total Protein 5.1 L Albumin 2.0 L Globulin 3.1 Albumin/Globulin Ratio 0.6 L Lipase Serum , Qual Urine Color Urine Clarity Urine pH Ur Specific [place] Urine Protein Urine Glucose (UA) Urine Ketones Urine Occult Blood Urine Nitrite Urine Bilirubin Urine Urobilinogen Ur Leukocyte Esterase Urine RBC Urine WBC Ur Squamous Epith Cells Urine Bacteria Urine Mucus Chlam trachomat DNA PCR Hepatitis A IgM Ab Hepatitis A Ab Total Hepatitis A Interp Hep Bs Antigen Hep Bs Ag Confirmation Hep B Surface Ag Comm Hep Bs Antibody Hep Bs Antibody Interp Hep B Core Total Ab Hep B Core IgM Ab Hepatitis C Antibody Hepatitis C Ab Confirm Hep C Confirm Com 1 HIV 1&2 Antibody N.gonorrhoeae DNA (PCR) Clinical Impression(s) from Imaging Studies Gallbladder Ultrasound 11/16/19 02:57 IMPRESSION: Possible focal fatty deposition into the liver as above, however increased since previous examination. As this has changed the previous ultrasound examination, consideration of a noncontrast and contrast-enhanced dynamic CT liver or MRI is recommended for better delineation exclusion off other pathology. Markedly distended gallbladder containing sludge, however no wall thickening or ultrasonographic Macisa''s sign to suggest acute cholecystitis. Partially obscured pancreas tail. Electronically Signed: Bianka Fulton MD at 4:56 EDT , Service support , ADDENDUM: 11/16/19 0515 Abdomen/Pelvis CT 11/16/19 04:26 IMPRESSION: Findings suggestive of pyelonephritis/ureteritis of the right genitourinary system. Distended gallbladder, no gallbladder inflammation or sludge detected. Injuries involving the liver along the falciform ligament likely focal fatty sparing. Changes along the liver parenchyma periphery on ultrasound is not demonstrated. There is no appendicitis, colitis, abscess, collection, perforation or obstruction. Intrauterine device in suboptimal positioning. Right involuting ovarian cyst/follicles. Electronically Signed: Bianka Fulton MD at 5:05 EDT , Service support , Chest X-Ray 11/16/19 11:05 IMPRESSION: Status post right internal jugular central venous catheter placement. No active pulmonary disease. Electronically Signed: Rafa Torres MD at 12:19 EDT Tel , Service support , Current Medications Acetaminophen (Tylenol) 650 mg PO Q6H PRN PRN PRN Reason: Pain Score 1-10/Temp > 100.7 F Last Admin: 11/17/19 04:24 Dose: 650 mg Documented by: Al Hydroxide/Mg Hydroxide (Mylanta Ii) 30 ml PO Q6H PRN PRN PRN Reason: Gastric Burning Albuterol Sulfate (Ventolin Aerosols) 2.5 mg INHALATION Q2H PRN PRN PRN Reason: Dyspnea, wheezing Guaifenesin (Robitussin) 20 ml PO Q4H PRN PRN PRN Reason: COUGH Hydralazine HCl (Apresoline Iv) 10 mg IV Q4H PRN PRN PRN Reason: SBP > 160 Hydromorphone HCl (Dilaudid Inj) 1 mg IV Q4H PRN PRN PRN Reason: Pain Score 6-10/10 Sodium Chloride () 1,000 mls @ 150 mls/hr IV .[id number] SUSSY Last Admin: 11/17/19 04:25 Dose: 150 mls/hr Documented by: Sodium Chloride () 250 mls @ 15 mls/hr IV .[id number] PRN PRN Reason: Saline Flush Last Infusion: 11/16/19 16:30 Dose: 0 mls/hr Documented by: Sodium Chloride () 250 mls @ 15 mls/hr IV .[id number] PRN PRN Reason: Additional IVPB Infusion Meropenem 1 gm/ Sodium (Chloride) 120 mls @ 33 mls/hr IV Q8 SUSSY Last Infusion: 11/17/19 02:37 Dose: Infused Documented by: Norepinephrine Bitartrate 8 mg (/ Sodium Chloride) 250 mls @ 9.375 mls/hr CONT INF .[id number] [facility]; Protocol Last Titration: 11/17/19 03:00 Dose: 10 mcg/min, 18.8 mls/hr Documented by: Vancomycin IV Pharmacy to Dose (1 ea/ Sodium Chloride) 500 mls @ 250 mls/hr IV X1 PRN; Protocol PRN Reason: Rx to Dose Vancomycin HCl (Vancomycin) 1,000 mg in 200 mls @ 200 mls/hr IV Q12H [facility] Last Infusion: 11/17/19 02:38 Dose: Infused Documented by: Magnesium Hydroxide (Milk Of Magnesia) 30 ml PO DAILY PRN PRN PRN Reason: Constipation Nicotine (Nicoderm Cq (Pbkc)) 14 mg TRANSDERM. DAILY [facility] Last Admin: 11/16/19 09:06 Dose: Not Given Documented by: Ondansetron HCl (Zofran) 4 mg IV Q8H PRN PRN PRN Reason: NAUSEA/VOMITING Oxycodone HCl (Oxyir) 10 mg PO Q4H PRN PRN PRN Reason: Pain Score 4-5/10 Last Admin: 11/17/19 03:23 Dose: 10 mg Documented by: Prochlorperazine Edisylate (Compazine Iv) 5 mg IV Q4H PRN PRN PRN Reason: Breakthrough nausea/vomiting Psyllium Hydrophilic Mucilloid (Metamucil) 1 packet PO DAILY PRN PRN PRN Reason: Constipation Quetiapine Fumarate (Seroquel) 25 mg PO BID [facility] Last Admin: 11/16/19 21:17 Dose: 25 mg Documented by: Senna/Docusate Sodium (Senokot-S, Alejandrina-Colace) 2 tablet PO BID PRN PRN PRN Reason: Constipation Sodium Chloride () 10 - 40 ml IV UD PRN PRN Reason: SALINE FLUSH Last Admin: 11/16/19 11:55 Dose: 20 ml Documented by: Temazepam (Restoril) 15 mg PO QHS PRN PRN PRN Reason: INSOMNIA Throat Lozenges (Cepacol Sore Throat Lozenge) 1 lozenge MUCOUS MEM Q2H PRN PRN PRN Reason: SORE THROAT Assessment/Plan Active and Suspected Problems (Last Reviewed 10/02/19 @ 13:52 by Kyle Mejia) Acute sepsis (Acute) Acute pyelonephritis (Acute) Sepsis (Acute) Pyelonephritis (Acute) RECOMMENDATIONS: 1. Continue broad-spectrum antimicrobials. 2. Continue fluid hydration as ordered. 3. Continue Levophed and wean to maintain a mean arterial pressure at or above 65 mmHg. 4. Aggressive electrolyte repletion. 5. Start stress ulcer and DVT prophylaxis. 6. Continue nicotine replacement therapy. IMPRESSIONS: 1. Septic shock Appears to be secondary to complicated urinary tract source of infection/pyelonephritis. Plan to continue current supportive measures includ ing supplemental IV fluid hydration and vasopressor support, in an attempt to maintain a mean arterial pressure at or above 65 mmHg. Continue broad-spectrum antimicrobials as ordered. 2. Acute kidney injury Likely prerenal in etiology and related to #1. Anticipate continued improvement with volume expansion. Continue to monitor urine output. No indication for renal replacement therapy. 3. Hypokalemia Aggressive electrolyte repletion as ordered. Recheck levels in the morning. 4. History of polysubstance abuse/anxiety/depression/tobacco dependency Complicates care, management, recovery and prognosis. Smoking cessation counseling was provided. Nicotine replacement therapy can be continued while admitted to the hospital. Okay to advance diet this morning from my perspective. TIME: 38 minutes of critical care time, independent of procedures, was spent addressing the patient's septic shock, acute kidney injury, hypokalemia, review of all data and collaboration with the care team. [id number]) [id number] Critical care first hour
[2019-11-17 07:48] LABS: Magnesium 1.7 mg/dL (1.6-2.6)
--- NOTE | 2019-11-17 08:40 | PN_ITS ---
Patient Problems: Active and Suspected Problems (Last Reviewed 10/02/19 @ 13:52 by Kyle Mejia) Acute sepsis (Acute) Acute pyelonephritis (Acute) Sepsis (Acute) Pyelonephritis (Acute) Subjective: Patient seen and examined. She still complains of feeling weak and tired. She has right flank pain still. Fever spike to 102.5 Fahrenheit in the early hours of this morning but is now down to 97.3 Fahrenheit. White cell count is trended up to 14.8. She remains on IV vancomycin and meropenem. She remains on levo fed at 10 mcg/min Vitals/I&O's: Vital Signs Temp Pulse Resp BP Pulse Ox 98.2 F 108 H 22 H 89/55 L 94 11/17/19 07:00 11/17/19 07:00 11/17/19 07:00 11/17/19 07:00 11/17/19 07:10 Oxygen Flow Rate (L/min) 2 Oxygen Delivery Method Nasal Cannula Weight: 164 lb Body Mass Index (BMI) 25.9 Intake and Output for Last 24 Hours 11/15/19 11/16/19 11/17/19 23:59 23:59 23:59 Intake Total 7743.28 / 7752.68 2189.06 / 2189.06 Output Total 985 / 1185 750 / 750 Balance 6758.28 / 6567.68 1439.06 / 1439.06 General: Alert, less lethargic today HEENT: Atraumatic, PERRLA, EOMI, Normocephalic Oral: Dry Mucosa Neck: Supple, No JVD, Negative Carotid Bruits Lungs: Clear to auscultation, Normal air movement, No rhonchi, Tachypneic Cardiovascular: Tachycardic, normal S1 and S2, no murmurs Abdomen: Bowel Sounds Present, Soft, Non Tender, Non-Distended, No Hepato- splenomegaly, - - still has right costophrenic angle tenderness, no guarding or rebound tenderness Extremities: No clubbing, No cyanosis, No edema, Capillary Refill Less than 3 Seconds Skin: No rashes, No breakdown Musculoskeletal: No Tenderness to Palpation of Joints or Extremities Lymphatic: No Cervical, Supraclavicular, or Inguinal Adenopathy Neurological: Cranial nerves II-XII grossly intact, - -power 5/5 in all extremities,normal tone Psych/Mental Status: - - still a bit lethargic.. Laboratory Results 11/16/19 03:17: Hep Bs Antigen Non-Reactive, Hep Bs Antibody Non-Reactive, Hepatitis C Antibody Reactive, HIV 1&2 Antibody Non-Reactive 11/16/19 10:10: Sodium 136, Potassium 2.8 L, Chloride 106, Carbon Dioxide 20.0 L , Anion Gap 10, BUN 10, Creatinine 0.99, Estim Creat Clear Calc 76.32, Est GFR (MDRD) Af Amer 89, Est GFR (MDRD) Non-Af 74, BUN/Creatinine Ratio 10.1, Glucose 117 H, Calcium 6.9 L 11/16/19 10:10: WBC 13.0 H, RBC 3.37 L, Hgb 10.4 L, Hct 30.6 L, MCV 90.8, MCH 30.9, MCHC 34.0, RDW Std Deviation 41.7, RDW Coeff of Kathy 12.5, Plt Count 188, MPV 9.9, Immature Gran % (Auto) 1.800 H, Neut % (Auto) 89.6 H, Lymph % (Auto) 5.3 L, [place] % (Auto) 3.0, Eos % (Auto) 0.1, Baso % (Auto) 0.2, Absolute Neuts (auto) 11.6 H, Absolute Lymphs (auto) 0.69 L, Nucleated RBC % 0, Dohle Bodies RARE, Platelet Estimate ADEQUATE, RBC Morphology N CYTIC, Hypochromasia RARE 11/17/19 03:30: WBC 14.8 H, RBC 3.19 L, Hgb 9.8 L, Hct 28.8 L, MCV 90.3, MCH 30.7, MCHC 34.0, RDW Std Deviation 41.5, RDW Coeff of Kathy 12.5, Plt Count 215, MPV 10.1, Immature Gran % (Auto) 1.600 H, Neut % (Auto) 87.0 H, Lymph % (Auto) 3.6 L, [place] % (Auto) 7.5, Eos % (Auto) 0.1, Baso % (Auto) 0.2, Absolute Neuts (auto) 12.9 H, Absolute Lymphs (auto) 0.53 L, Nucleated RBC % 0, Differential Comment SCANNED 11/17/19 03:30: Sodium 140, Potassium 2.9 L, Chloride 112 H, Carbon Dioxide 21.0, Anion Gap 7, BUN 7, Creatinine 0.59, Estim Creat Clear Calc 128.06, Est GFR (MDRD) Af Amer 162, Est GFR (MDRD) Non-Af 134, BUN/Creatinine Ratio 11.8, Glucose 94, Calcium 6.8 L, Total Bilirubin 0.60, AST 24, ALT 32, Alkaline Phosphatase 69, Total Protein 5.1 L, Albumin 2.0 L, Globulin 3.1, Albumin/Globulin Ratio 0.6 L 11/17/19 03:30: Magnesium 1.7 Diagnostic Data Gallbladder Ultrasound 11/16/19 02:57 IMPRESSION: Possible focal fatty deposition into the liver as above, however increased since previous examination. As this has changed the previous ultrasound examination, consideration of a noncontrast and contrast-enhanced dynamic CT liver or MRI is recommended for better delineation exclusion off other pathology. Markedly distended gallbladder containing sludge, however no wall thickening or ultrasonographic Macias''s sign to suggest acute cholecystitis. Partially obscured pancreas tail. Electronically Signed: Bianka Fulton MD at 4:56 EDT , Service support , ADDENDUM: 11/16/19 0515 Abdomen/Pelvis CT 11/16/19 04:26 IMPRESSION: Findings suggestive of pyelonephritis/ureteritis of the right genitourinary system. Distended gallbladder, no gallbladder inflammation or sludge detected. Injuries involving the liver along the falciform ligament likely focal fatty sparing. Changes along the liver parenchyma periphery on ultrasound is not demonstrated. There is no appendicitis, colitis, abscess, collection, perforation or obstruction. Intrauterine device in suboptimal positioning. Right involuting ovarian cyst/follicles. Electronically Signed: Bianka Fulton MD at 5:05 EDT , Service support , Chest X-Ray 11/16/19 11:05 IMPRESSION: Status post right internal jugular central venous catheter placement. No active pulmonary disease. Electronically Signed: Rafa Torres MD at 12:19 EDT Tel , Service support , Current Medications Acetaminophen (Tylenol) 650 mg PO Q6H PRN PRN PRN Reason: Pain Score 1-10/Temp > 100.7 F Last Admin: 11/17/19 04:24 Dose: 650 mg Documented by: Al Hydroxide/Mg Hydroxide (Mylanta Ii) 30 ml PO Q6H PRN PRN PRN Reason: Gastric Burning Albuterol Sulfate (Ventolin Aerosols) 2.5 mg INHALATION Q2H PRN PRN PRN Reason: Dyspnea, wheezing Guaifenesin (Robitussin) 20 ml PO Q4H PRN PRN PRN Reason: COUGH Hydralazine HCl (Apresoline Iv) 10 mg IV Q4H PRN PRN PRN Reason: SBP > 160 Hydromorphone HCl (Dilaudid Inj) 1 mg IV Q4H PRN PRN PRN Reason: Pain Score 6-10/10 Sodium Chloride () 1,000 mls @ 150 mls/hr IV .[id number] COUNT INCLUDES THE [facility] Last Admin: 11/17/19 04:25 Dose: 150 mls/hr Documented by: Sodium Chloride () 250 mls @ 15 mls/hr IV .[id number] PRN PRN Reason: Saline Flush Last Infusion: 11/16/19 16:30 Dose: 0 mls/hr Documented by: Sodium Chloride () 250 mls @ 15 mls/hr IV .[id number] PRN PRN Reason: Additional IVPB Infusion Meropenem 1 gm/ Sodium (Chloride) 120 mls @ 33 mls/hr IV Q8 COUNT INCLUDES THE [facility] Last Admin: 11/17/19 06:39 Dose: 33 mls/hr Documented by: Norepinephrine Bitartrate 8 mg (/ Sodium Chloride) 250 mls @ 9.375 mls/hr CONT INF .[id number] COUNT INCLUDES THE [facility]; Protocol Last Titration: 11/17/19 07:00 Dose: 5 mcg/min, 9.4 mls/hr Documented by: Vancomycin IV Pharmacy to Dose (1 ea/ Sodium Chloride) 500 mls @ 250 mls/hr IV X1 PRN; Protocol PRN Reason: Rx to Dose Vancomycin HCl (Vancomycin) 1,000 mg in 200 mls @ 200 mls/hr IV Q12H COUNT INCLUDES THE [facility] Last Infusion: 11/17/19 02:38 Dose: Infused Documented by: Potassium Chloride 40 meq/ (Sodium Chloride) 120 mls @ 100 mls/hr IV BOLUS X1 ONE Stop: 11/17/19 09:11 Magnesium Hydroxide (Milk Of Magnesia) 30 ml PO DAILY PRN PRN PRN Reason: Constipation Nicotine (Nicoderm Cq (Pbkc)) 14 mg TRANSDERM. DAILY COUNT INCLUDES THE [facility] Last Admin: 11/16/19 09:06 Dose: Not Given Documented by: Ondansetron HCl (Zofran) 4 mg IV Q8H PRN PRN PRN Reason: NAUSEA/VOMITING Oxycodone HCl (Oxyir) 10 mg PO Q4H PRN PRN PRN Reason: Pain Score 4-5/10 Last Admin: 11/17/19 03:23 Dose: 10 mg Documented by: Prochlorperazine Edisylate (Compazine Iv) 5 mg IV Q4H PRN PRN PRN Reason: Breakthrough nausea/vomiting Psyllium Hydrophilic Mucilloid (Metamucil) 1 packet PO DAILY PRN PRN PRN Reason: Constipation Quetiapine Fumarate (Seroquel) 25 mg PO BID COUNT INCLUDES THE [facility] Last Admin: 11/16/19 21:17 Dose: 25 mg Documented by: Senna/Docusate Sodium (Senokot-S, Alejandrina-Colace) 2 tablet PO BID PRN PRN PRN Reason: Constipation Sodium Chloride () 10 - 40 ml IV UD PRN PRN Reason: SALINE FLUSH Last Admin: 11/16/19 11:55 Dose: 20 ml Documented by: Temazepam (Restoril) 15 mg PO QHS PRN PRN PRN Reason: INSOMNIA Throat Lozenges (Cepacol Sore Throat Lozenge) 1 lozenge MUCOUS MEM Q2H PRN PRN PRN Reason: SORE THROAT STROKE Vital Signs/Narrative: Vital Signs Temp Pulse Resp BP Pulse Ox 11/17/19 07:10 94 11/17/19 07:00 98.2 F 108 H 22 H 89/55 L 94 11/17/19 06:45 96 109/67 11/17/19 06:30 102 H 106/92 H 11/17/19 06:15 118 H 94/63 11/17/19 06:00 98.0 F 116 H 24 H 102/72 96 11/17/19 05:45 117 H 104/63 11/17/19 05:30 112 H 102/55 L 11/17/19 05:15 118 H 122/81 H 11/17/19 05:06 93 11/17/19 05:00 78 39 H 109/75 92 11/17/19 04:45 113 H 85/48 L Medical Necessity - Tobacco Use Smoking Status: Current every day smoker Tobacco Use: Cigarettes Assessment/Plan All Active Problems (Last Reviewed 10/02/19 @ 13:52 by Kyle Mejia) Acute sepsis (Acute) Acute pyelonephritis (Acute) Sepsis (Acute) Pyelonephritis (Acute) Anemia associated with acute blood loss (Acute) hemorrhage, delayed (> 24 hrs) (Acute) hemorrhage of vagina (Acute) Missed (Acute) 1. Septic shock due to right pyelonephritis * Patient still remains tachypneic and tachycardic. WBC is trended up to 14.8. SIRS criteria is 3 or 4 today. * Still remains on Levophed at 10 MCG per minute. * On IV vancomycin and meropenem. Critical care on board. Blood and urine cultures pending. * Continue hydration with IV fluid and titrate Levophed to maintain MEP at more than 65 * 2D echo pending. * 2. Hyponatremia: Resolved. 3. Right pyelonephritis: * CAT scan showed pyelonephritis and detritus of the right joint mid to urinary system as well as distended gallbladder but no gallbladder inflammation or sludge detected. * Management as under 1. 4. Hypokalemia: Potassium is 2.9 today. Will replace and monitor. 5. Anxiety and depression: On Seroquel 6. History of polysubstance abuse. Has a history of prior heroin and methamphetamine usage. Stable. DVT prophylaxis: Lovenox CODE STATUS: full code * Inpatient E&M: 40116 Subs Hosp L2
[2019-11-17] MEDS: QUEtiapine 25 MG Tablet PO ×2 (11:35→22:14)
[2019-11-17 23:53] LABS: Vancomycin, Trough Level 5.2 ug/mL (5.0-15.0)
[2019-11-18] VITALS (34 sets, daily range): BP systolic 79–109; BP diastolic 53–82; PULSE 70–114; RESP 10–24; TEMP 36.3–38.1; O2SAT 91–100
[2019-11-18] MEDS: oxyCODONE 5 MG Tablet 10 MG PO ×3 (00:38→10:56)
--- NOTE | 2019-11-18 01:10 | PCM.RX.CS ---
Consult Pharmacy has been consulted to manage selected antiobiotic: Vancomycin Type of Consult: Follow-up Labs: Sodium 140 mmol/L (136-145) 11/17/19 03:30 Potassium 2.9 mmol/L (3.5-5.1) L 11/17/19 03:30 Chloride 112 mmol/L (98-107) H 11/17/19 03:30 Carbon Dioxide 21.0 mmol/L (21.0-32.0) 11/17/19 03:30 Anion Gap 7 (5-15) 11/17/19 03:30 BUN 7 mg/dL (7-18) 11/17/19 03:30 Creatinine 0.59 mg/dL (0.55-1.02) 11/17/19 03:30 Est GFR (MDRD) Af Amer 162 mL/min (>60) 11/17/19 03:30 Est GFR (MDRD) Non-Af 134 mL/min (>60) 11/17/19 03:30 BUN/Creatinine Ratio 11.8 RATIO (10-20) 11/17/19 03:30 Glucose 94 mg/dL (74-106) 11/17/19 03:30 Vancomycin Trough 5.2 ug/mL (5.0-15.0) 11/17/19 22:10 Microbiology: Microbiology 11/16/19 06:45 Urine, Clean Catch Urine Culture - Preliminary Mixed Gram Pos & Gram Neg Org Goal Trough: 15-20 mcg/mL Pharmacy Plan for Drug Dosing: Pharmacy Service will continue to monitor and adjust dosing as required. TROUGH 5.2 INCREASE TO 1G Q8H Follow-Up Labs: Trough Vancomycin Labs to be done on [date and time ordered]: 11/18 @ 8030
[2019-11-18] MEDS: Acetaminophen 325 MG Tablet 650 MG PO ×3 (01:56→16:23)
[2019-11-18] MEDS: 0.9% Normal Saline 1,000 ML 150 ML IV ×2 (03:15→10:57)
--- NOTE | 2019-11-18 03:28 | NURSING ---
Bedside report received from Adama Ortiz RN. This RN assuming care of pt. at this time.
[2019-11-18 03:44] LABS: Absolute Lymphocyte Count 1.38 X10^3/uL (0.83-4.51); Absolute Neutrophil Count 8.5 X10^3/uL (2.0-7.7); Basophil# 0.02 X10^3/uL; Basophil% 0.2 % (0-1); Eosinophil# 0.04 X10^3/uL; Eosinophils% 0.4 % (0-5); Hematocrit 28.1 % (37-47); Hemoglobin 9.6 g/dL (12.0-15.0); Lymphocyte # 1.38 X10^3/ul (4.0); Lymphocyte % 12.8 % (19-41); Mean Corp Hgb Conc 34.2 g/dL (32-36); Mean Corpuscular Hgb 31.2 pg (27.0-32.0); Mean Corpuscular Volume 91.2 fL (81-99); Mean Platelet Vol. 9.4 fl (6.2-12.0); Monocyte% 7.4 % (0-10); NRBC Flagged by Analyzer 0 % (0-5); Neutrophil # 8.49 X10^3/uL (2.7-7.7); Neutrophil % 78.6 % (47-70); Platelet Count 190 K/mm3 (150-450); RBC Distribution Width CV 13.1 % (11.6-14.6); RBC Distribution Width SD 43.4 fl (35.1-43.9); Red Blood Count 3.08 M/mm3 (4.2-5.4); White Blood Count 10.8 K/mm3 (4.4-11.0)
[2019-11-18 03:57] LABS: Anion Gap 5 (5-15); BUN 6 mg/dL (7-18); BUN/Creat Ratio 13.2 RATIO (10-20); Calcium,Total 6.8 mg/dL (8.5-10.1); Chloride 110 mmol/L (98-107); Creatinine, Serum 0.46 mg/dL (0.55-1.02); EST Glomerular Filtration Rate 181 mL/min (>60); Est Glom Filt Rate - Afr Amer 219 mL/min (>60); Estimated Creatinine Clearance 164.25 ml/min; Glucose 87 mg/dL (74-106); Potassium 3.2 mmol/L (3.5-5.1); Sodium Level 139 mmol/L (136-145)
[2019-11-18] MEDS: 0.9% Saline Lock 10 ML Syringe IV ×2 (05:31→16:18)
[2019-11-18] MEDS: Vancomycin IV 1,000 MG/200 ML BAG 200 MG IV (06:33)
--- NOTE | 2019-11-18 07:37 | PCM.PN.INT ---
Subjective: Patient did well overnight. Patient was able to be taken off of Levophed at approximately 6 PM last evening. Blood pressures have remained marginal, but acceptable. Patient is on low flow nasal cannula to maintain saturations. Patient has developed a productive cough overnight. Patient continues to report body aches. General: Alert, Oriented x3, Cooperative, - - Mild distress. HEENT: Atraumatic, PERRLA, EOMI, Normocephalic, - - No scleral icterus or injection noted Oral: Moist Mucosa, No Gingival or Mucosal Lesions/ Ulcerations Neck: Supple, No JVD, No Nodes, Trachea Midline Lungs: No rhonchi, No wheeze, No rales, Diminished, - - Fair effort. Symmetric expansion. Cardiovascular: Regular rate, Regular Rhythm, Normal S1, Normal S2, No murmurs, No rub noted, No Gallop Abdomen: Bowel Sounds Present, Soft, Non Tender, Non-Distended Extremities: No clubbing, No cyanosis, No edema, Capillary Refill Less than 3 Seconds Skin: No rashes, No breakdown Musculoskeletal: No Tenderness to Palpation of Joints or Extremities Lymphatic: No Cervical, Supraclavicular, or Inguinal Adenopathy Neurological: Cranial nerves II-XII grossly intact, Neuro grossly intact, Motor Exam 5/5 strength throughout Psych/Mental Status: Alert and oriented to time, place, person, mood and affect Vital Signs Temp Pulse Resp BP Pulse Ox 37.1 C 93 23 H 90/63 97 11/18/19 05:00 11/18/19 07:00 11/18/19 07:00 11/18/19 07:00 11/18/19 07:00 Oxygen Flow Rate (L/min) 2 Oxygen Delivery Method Nasal Cannula Weight: 74.6 kg Body Mass Index (BMI) 25.9 Intake and Output for Last 24 Hours 11/16/19 11/17/19 11/18/19 23:59 23:59 23:59 Intake Total 7743.28 / 7752.68 5522.92 / 5522.92 1540 / 1540 Output Total 985 / 1185 2110 / 2260 710 / 710 Balance 6758.28 / 6567.68 3412.92 / 3262.92 830 / 830 Labs (Last 48 Hours) 11/16/19 11/16/19 11/16/19 03:17 06:45 10:10 WBC RBC Hgb Hct MCV MCH MCHC RDW Std Deviation RDW Coeff of Kathy Plt Count MPV Immature Gran % (Auto) Neut % (Auto) Lymph % (Auto) [place] % (Auto) Eos % (Auto) Baso % (Auto) Absolute Neuts (auto) Absolute Lymphs (auto) Nucleated RBC % Differential Comment Dohle Bodies Platelet Estimate RBC Morphology Hypochromasia Sodium 136 Potassium 2.8 L Chloride 106 Carbon Dioxide 20.0 L Anion Gap 10 BUN 10 Creatinine 0.99 Estim Creat Clear Calc 76.32 Est GFR (MDRD) Af Amer 89 Est GFR (MDRD) Non-Af 74 BUN/Creatinine Ratio 10.1 Glucose 117 H Calcium 6.9 L Magnesium Total Bilirubin AST ALT Alkaline Phosphatase Total Protein Albumin Globulin Albumin/Globulin Ratio Vancomycin Trough Chlam trachomat DNA PCR Negative Hep Bs Antigen Non-Reactive Hep Bs Antibody Non-Reactive Hepatitis C Antibody Reactive HIV 1&2 Antibody Non-Reactive N.gonorrhoeae DNA (PCR) Negative 11/16/19 11/17/19 11/17/19 10:10 03:30 03:30 WBC 13.0 H 14.8 H RBC 3.37 L 3.19 L Hgb 10.4 L 9.8 L Hct 30.6 L 28.8 L MCV 90.8 90.3 MCH 30.9 30.7 MCHC 34.0 34.0 RDW Std Deviation 41.7 41.5 RDW Coeff of Kathy 12.5 12.5 Plt Count 188 215 MPV 9.9 10.1 Immature Gran % (Auto) 1.800 H 1.600 H Neut % (Auto) 89.6 H 87.0 H Lymph % (Auto) 5.3 L 3.6 L [place] % (Auto) 3.0 7.5 Eos % (Auto) 0.1 0.1 Baso % (Auto) 0.2 0.2 Absolute Neuts (auto) 11.6 H 12.9 H Absolute Lymphs (auto) 0.69 L 0.53 L Nucleated RBC % 0 0 Differential Comment SCANNED Dohle Bodies RARE Platelet Estimate ADEQUATE RBC Morphology N CYTIC Hypochromasia RARE Sodium 140 Potassium 2.9 L Chloride 112 H Carbon Dioxide 21.0 Anion Gap 7 BUN 7 Creatinine 0.59 Estim Creat Clear Calc 128.06 Est GFR (MDRD) Af Amer 162 Est GFR (MDRD) Non-Af 134 BUN/Creatinine Ratio 11.8 Glucose 94 Calcium 6.8 L Magnesium Total Bilirubin 0.60 AST 24 ALT 32 Alkaline Phosphatase 69 Total Protein 5.1 L Albumin 2.0 L Globulin 3.1 Albumin/Globulin Ratio 0.6 L Vancomycin Trough Chlam trachomat DNA PCR Hep Bs Antigen Hep Bs Antibody Hepatitis C Antibody HIV 1&2 Antibody N.gonorrhoeae DNA (PCR) 11/17/19 11/17/19 11/18/19 03:30 22:10 03:40 WBC 10.8 RBC 3.08 L Hgb 9.6 L Hct 28.1 L MCV 91.2 MCH 31.2 MCHC 34.2 RDW Std Deviation 43.4 RDW Coeff of Kathy 13.1 Plt Count 190 MPV 9.4 Immature Gran % (Auto) 0.600 Neut % (Auto) 78.6 H Lymph % (Auto) 12.8 L [place] % (Auto) 7.4 Eos % (Auto) 0.4 Baso % (Auto) 0.2 Absolute Neuts (auto) 8.5 H Absolute Lymphs (auto) 1.38 Nucleated RBC % 0 Differential Comment Dohle Bodies Platelet Estimate RBC Morphology Hypochromasia Sodium Potassium Chloride Carbon Dioxide Anion Gap BUN Creatinine Estim Creat Clear Calc Est GFR (MDRD) Af Amer Est GFR (MDRD) Non-Af BUN/Creatinine Ratio Glucose Calcium Magnesium 1.7 Total Bilirubin AST ALT Alkaline Phosphatase Total Protein Albumin Globulin Albumin/Globulin Ratio Vancomycin Trough 5.2 Chlam trachomat DNA PCR Hep Bs Antigen Hep Bs Antibody Hepatitis C Antibody HIV 1&2 Antibody N.gonorrhoeae DNA (PCR) 11/18/19 03:40 WBC RBC Hgb Hct MCV MCH MCHC RDW Std Deviation RDW Coeff of Kathy Plt Count MPV Immature Gran % (Auto) Neut % (Auto) Lymph % (Auto) [place] % (Auto) Eos % (Auto) Baso % (Auto) Absolute Neuts (auto) Absolute Lymphs (auto) Nucleated RBC % Differential Comment Dohle Bodies Platelet Estimate RBC Morphology Hypochromasia Sodium 139 Potassium 3.2 L Chloride 110 H Carbon Dioxide 24.0 Anion Gap 5 BUN 6 L Creatinine 0.46 L Estim Creat Clear Calc 164.25 Est GFR (MDRD) Af Amer 219 Est GFR (MDRD) Non-Af 181 BUN/Creatinine Ratio 13.2 Glucose 87 Calcium 6.8 L Magnesium Total Bilirubin AST ALT Alkaline Phosphatase Total Protein Albumin Globulin Albumin/Globulin Ratio Vancomycin Trough Chlam trachomat DNA PCR Hep Bs Antigen Hep Bs Antibody Hepatitis C Antibody HIV 1&2 Antibody N.gonorrhoeae DNA (PCR) Microbiology 11/16/19 06:45 Urine, Clean Catch Urine Culture - Preliminary Mixed Gram Pos & Gram Neg Org Medical Necessity - Tobacco Use Smoking Status: Current every day smoker Tobacco Use: Cigarettes Assessment/Plan All Active Problems (Last Reviewed 10/02/19 @ 13:52 by Kyle Mejia) Acute sepsis (Acute) Acute pyelonephritis (Acute) Sepsis (Acute) Pyelonephritis (Acute) Anemia associated with acute blood loss (Acute) hemorrhage, delayed (> 24 hrs) (Acute) hemorrhage of vagina (Acute) Missed (Acute) RECOMMENDATIONS: 1. Continue broad-spectrum antimicrobials. 2. Continue fluid hydration as ordered. 3. Continue Levophed and wean to maintain a mean arterial pressure at or above 65 mmHg. 4. Aggressive electrolyte repletion. 5. Start stress ulcer and DVT prophylaxis. 6. Continue nicotine replacement therapy. IMPRESSIONS: 1. Septic shock Appears to be secondary to complicated urinary tract source of infection/pyelonephritis versus possible pneumonia. Continue antibiotics as ordered. Bolus IV fluids as necessary. Patient has developed a productive cough, so pneumonia would be a consideration. Will obtain a chest x-ray. 2. Acute kidney injury Resolved. Likely prerenal in etiology and related to #1. Anticipate continued improvement with volume expansion. Continue to monitor urine output. No indication for renal replacement therapy. 3. Hypokalemia Likely secondary to the polyuric phase of ATN. Aggressive electrolyte repletion as ordered. Recheck levels in the morning. 4. History of polysubstance abuse/anxiety/depression/tobacco dependency Complicates care, management, recovery and prognosis. Smoking cessation counseling was provided. Nicotine replacement therapy can be continued while admitted to the hospital. Inpatient E&M: 08562 Subs Hosp L3
[2019-11-18] MEDS: QUEtiapine 25 MG Tablet PO (08:39)
--- NOTE | 2019-11-18 10:23 | PCM.PN.HOSP ---
Patient Problems: Active and Suspected Problems (Last Reviewed 10/02/19 @ 13:52 by Kyle Mejia) Acute sepsis (Acute) Acute pyelonephritis (Acute) Sepsis (Acute) Pyelonephritis (Acute) Reason for Visit: Follow-up on septic shock, right pyelonephritis Subjective: Patient was seen and examined. No acute events overnight. She does not say much. She states she feels tired. Stable vitals. Off Levophed. Urine cultures show mixed organisms, likely contaminations. Blood cultures are negative x48 hours. Objective: Physical exam: General: Alert, oriented x3, not pale, not jaundice, well hydrated HEENT: Atraumatic, PERRLA, EOMI, Normocephalic Oral: Dry Mucosa Neck: Supple, No JVD, Negative Carotid Bruits Lungs: Clear to auscultation, Normal air movement, No rhonchi, Tachypneic Cardiovascular: Tachycardic, normal S1 and S2, no murmurs Abdomen: Bowel Sounds Present, Soft, Non-Distended, No Hepato-splenomegaly, right costophrenic angle tenderness + Extremities: No edema Skin: No rashes, no breakdown Musculoskeletal: No Tenderness to Palpation of Joints or Extremities Lymphatic: No Cervical, Supraclavicular, or Inguinal Adenopathy Neurological: Cranial nerves II-XII grossly intact, - -power 5/5 in all extremities, normal tone Vitals/I&O's: Vital Signs Temp Pulse Resp BP Pulse Ox 100.1 F H 101 H 20 H 97/60 94 11/18/19 08:00 11/18/19 09:00 11/18/19 09:00 11/18/19 09:00 11/18/19 09:00 Oxygen Flow Rate (L/min) 2 Oxygen Delivery Method Nasal Cannula Weight: 74.6 kg Body Mass Index (BMI) 25.9 Intake and Output for Last 24 Hours 11/16/19 11/17/19 11/18/19 23:59 23:59 23:59 Intake Total 7743.28 / 7752.68 5522.92 / 5522.92 2350 / 2350 Output Total 985 / 1185 2110 / 2260 710 / 710 Balance 6758.28 / 6567.68 3412.92 / 3262.92 1640 / 1640 Microbiology Past 72 Hours 11/16/19 06:45 Urine, Clean Catch Urine Culture - Final Mixed Gram Pos & Gram Neg Org 11/16/19 03:17 Blood Culture (Wb) - Anticubital Right Blood Culture - Preliminary No growth in 48 hours. 11/16/19 03:17 Blood Culture (Wb) - Left Forearm Blood Culture - Preliminary No growth in 48 hours. Laboratory Results 11/17/19 22:10: Vancomycin Trough 5.2 11/18/19 03:40: WBC 10.8, RBC 3.08 L, Hgb 9.6 L, Hct 28.1 L, MCV 91.2, MCH 31.2, MCHC 34.2, RDW Std Deviation 43.4, RDW Coeff of Kathy 13.1, Plt Count 190, MPV 9.4, Immature Gran % (Auto) 0.600, Neut % (Auto) 78.6 H, Lymph % (Auto) 12.8 L, [place] % (Auto) 7.4, Eos % (Auto) 0.4, Baso % (Auto) 0.2, Absolute Neuts (auto) 8.5 H, Absolute Lymphs (auto) 1.38, Nucleated RBC % 0 11/18/19 03:40: Sodium 139, Potassium 3.2 L, Chloride 110 H, Carbon Dioxide 24.0, Anion Gap 5, BUN 6 L, Creatinine 0.46 L, Estim Creat Clear Calc 164.25, Est GFR (MDRD) Af Amer 219, Est GFR (MDRD) Non-Af 181, BUN/Creatinine Ratio 13.2, Glucose 87, Calcium 6.8 L Current Medications Acetaminophen (Tylenol) 650 mg PO Q6H PRN PRN PRN Reason: Pain Score 1-10/Temp > 100.7 F Last Admin: 11/18/19 08:39 Dose: 650 mg Documented by: Al Hydroxide/Mg Hydroxide (Mylanta Ii) 30 ml PO Q6H PRN PRN PRN Reason: Gastric Burning Albuterol Sulfate (Ventolin Aerosols) 2.5 mg INHALATION Q2H PRN PRN PRN Reason: Dyspnea, wheezing Guaifenesin (Robitussin) 20 ml PO Q4H PRN PRN PRN Reason: COUGH Hydralazine HCl (Apresoline Iv) 10 mg IV Q4H PRN PRN PRN Reason: SBP > 160 Hydromorphone HCl (Dilaudid Inj) 1 mg IV Q4H PRN PRN PRN Reason: Pain Score 6-10/10 Sodium Chloride () 1,000 mls @ 150 mls/hr IV .[id number] [facility] Last Infusion: 11/18/19 08:39 Dose: 150 mls/hr Documented by: Sodium Chloride () 250 mls @ 15 mls/hr IV .[id number] PRN PRN Reason: Saline Flush Last Infusion: 11/16/19 16:30 Dose: 0 mls/hr Documented by: Sodium Chloride () 250 mls @ 15 mls/hr IV .[id number] PRN PRN Reason: Additional IVPB Infusion Meropenem 1 gm/ Sodium (Chloride) 120 mls @ 33 mls/hr IV Q8 [facility] Last Admin: 11/18/19 05:23 Dose: 33 mls/hr Documented by: Norepinephrine Bitartrate 8 mg (/ Sodium Chloride) 250 mls @ 9.375 mls/hr CONT INF .[id number] [facility]; Protocol Last Titration: 11/17/19 19:00 Dose: 0 mcg/min, 0 mls/hr Documented by: Vancomycin IV Pharmacy to Dose (1 ea/ Sodium Chloride) 500 mls @ 250 mls/hr IV X1 PRN; Protocol PRN Reason: Rx to Dose Vancomycin HCl (Vancomycin) 1,000 mg in 200 mls @ 200 mls/hr IV Q8H [facility] Last Admin: 11/18/19 06:33 Dose: 200 mls/hr Documented by: Magnesium Hydroxide (Milk Of Magnesia) 30 ml PO DAILY PRN PRN PRN Reason: Constipation Nicotine (Nicoderm Cq (Pbkc)) 14 mg TRANSDERM. DAILY [facility] Last Admin: 11/18/19 08:40 Dose: 14 mg Documented by: Ondansetron HCl (Zofran) 4 mg IV Q8H PRN PRN PRN Reason: NAUSEA/VOMITING Oxycodone HCl (Oxyir) 10 mg PO Q4H PRN PRN PRN Reason: Pain Score 4-5/10 Last Admin: 11/18/19 05:30 Dose: 10 mg Documented by: Prochlorperazine Edisylate (Compazine Iv) 5 mg IV Q4H PRN PRN PRN Reason: Breakthrough nausea/vomiting Psyllium Hydrophilic Mucilloid (Metamucil) 1 packet PO DAILY PRN PRN PRN Reason: Constipation Quetiapine Fumarate (Seroquel) 25 mg PO BID SUSSY Last Admin: 11/18/19 08:39 Dose: 25 mg Documented by: Senna/Docusate Sodium (Senokot-S, Alejandrina-Colace) 2 tablet PO BID PRN PRN PRN Reason: Constipation Sodium Chloride () 10 - 40 ml IV UD PRN PRN Reason: SALINE FLUSH Last Admin: 11/18/19 05:31 Dose: 20 ml Documented by: Temazepam (Restoril) 15 mg PO QHS PRN PRN PRN Reason: INSOMNIA Throat Lozenges (Cepacol Sore Throat Lozenge) 1 lozenge MUCOUS MEM Q2H PRN PRN PRN Reason: SORE THROAT STROKE Vital Signs/Narrative: Vital Signs Temp Pulse Resp BP Pulse Ox 11/18/19 09:00 101 H 20 H 97/60 94 11/18/19 08:00 100.1 F H 92 24 H 98/62 95 11/18/19 07:00 95 23 H 90/63 97 11/18/19 06:33 96 Medical Necessity - Tobacco Use Smoking Status: Current every day smoker Tobacco Use: Cigarettes Assessment/Plan All Active Problems (Last Reviewed 10/02/19 @ 13:52 by Kyle Mejia) Acute sepsis (Acute) Acute pyelonephritis (Acute) Sepsis (Acute) Pyelonephritis (Acute) Anemia associated with acute blood loss (Acute) hemorrhage, delayed (> 24 hrs) (Acute) hemorrhage of vagina (Acute) Missed (Acute) 1. Septic shock secondary to acute right pyelonephritis, resolved Blood pressure is improved. Off pressors. On IV fluids. Blood cultures are negative x48 hours. Urine cultures are contaminated. WBC count is improved to 10.8 from 14.8. Continue IV meropenem, DC vancomycin Will de-escalate further tomorrow if patient continues to be stable Repeat blood work in a.m. 2. Acute right pyelonephritis, seen on CT abd/pelvis Continue on IV meropenem 3. Hypoxia secondary to atelectasis/bibasilar infiltrate/bilateral pleural effusions Patient is on 2 L of oxygen, encourage use of incentive spirometer, wean off oxygen for SPO2 more than 94% 4. Hypokalemia, replace, will also check magnesium levels 5. Hyponatremia, resolved 6. Anxiety/depression, on Seroquel, Hold Seroquel this morning on account of lethargy Will reassess in a.m. 7. Polysubstance use, advised to quit 8. Nicotine dependence, on replacement 9. DVT PPx- Lovenox SC Inpatient E&M: 31120 Subs Hosp L3
--- NOTE | 2019-11-18 10:25 | RAD_ITS ---
STUDY: X-RAY CHEST REASON FOR EXAM: Female, 24 years old. SOB, SEPSIS TECHNIQUE: Single AP portable view of the chest. COMPARISON: 11/16/19 FINDINGS: EKG leads overlie the chest. Right IJ central venous catheter tip now sits in the right atrium The lungs are expanded, development of bibasilar opacifications and bilateral pleural effusions since the previous study. Findings suggest CHF but other possibilities include bilateral infiltrates or drug interaction/toxicity. Normal size heart. Normal mediastinum and micheal. Normal visualized pulmonary arteries. Normal visualized aortic arch and descending thoracic aorta. Normal visualized thoracic spine. Normal visualized ribs, clavicles, and shoulders. There is no demonstrated abnormality of the visualized soft tissue structures of the upper abdomen. RAD/Chest 1 View (Portable) IMPRESSION: Development of bibasilar opacifications, left greater than right as well as bilateral pleural effusions, left greater than right since the previous study. Findings likely represent bilateral infiltrates though CHF or drug interaction could have similar findings. Follow-up recommended to ensure resolution Electronically Signed: Marcio Cardoza MD at 10:46 EDT , Service support ,
[2019-11-18 11:42] LABS: Magnesium 1.8 mg/dL (1.6-2.6)
[2019-11-18 12:33] LABS: Pathologist Review Reviewed
--- NOTE | 2019-11-18 14:00 | CASEMGMT ---
RN MAGDALENO TRUCK TECHNICIAN CM to room to meet with patient for initial transition planning/care coordination assessment. JELENA DOLAN introduced self and role at [facility]. Pt voices understanding and consents to assessment at this time. Pt resting in bed in no distress at this time. Pt sleepy but would awaken to answer questions and then fall asleep again. Pt was able to answer all questions appropriately. Care providers, pharmacy, and demographics verified/updated at this time. PCP: Dr Vernon Specialists: Counselor @ [facility], OB-MIRROR POLISHER Preferred Pharmacy: [facility] in [place] Insurance: [employer] Prescription Benefit: Yes Living Will/HPOA: Pt does not currently have LW/HCPOA and is interested in talking w/SW for POA. Laverne Zapata, SW, made aware. Pt states both of her parents are still living, but her father is not involved. She states she would want her sister, Vielka to be her POA. LNOK: Sister, Vielka. Mother. Also has a brother. Father is also still living, but pt states he is not involved. Living Arrangements: Lives w/her boyfriend, Kirill. She has a 3-yr-old daughter who lives with pt's mother. Pt states both her mother and sister live about an hour away from her. Transportation: Pt states she walks most places, but if needs to go further distances, will call a taxi. DME: Denies using any DME and denies needs. HHC/SNF: No history of either Pt wishes to return home and states has no concerns with going home at time of discharge. CM to follow for any discharge planning/needs. Pt voices no concerns/needs at this time. Advised pt to ask for CM if any questions/concerns/needs arise. Voices understanding. PLAN: Home SW C/S for AD and history of drug use. Neyda TOMAS RN, CM
[2019-11-18] MEDS: Furosemide 20 MG/2 ML VIAL IV (16:11)
--- NOTE | 2019-11-18 20:42 | NURSING ---
Verbal report given to Tyson Weir RN. She will resume care of patient at this time.
[2019-11-18] MEDS: Ibuprofen 600 MG Tablet PO (20:50)
[2019-11-18] MEDS: Enoxaparin 40 MG/0.4 ML Syringe SC (21:12)
[2019-11-19] VITALS (21 sets, daily range): BP systolic 84–120; BP diastolic 56–78; PULSE 63–86; RESP 10–22; TEMP 36.7–37.5; O2SAT 94–100
[2019-11-19] MEDS: 0.9% Saline Lock 10 ML Syringe IV ×5 (00:05→21:42)
[2019-11-19] MEDS: Acetaminophen 325 MG Tablet 650 MG PO (04:03)
--- NOTE | 2019-11-19 06:20 | PN_ITS ---
Subjective: The patient was seen and examined at the bedside this morning. Events from the last 24 hours have been reviewed. The patient is currently afebrile, hemodynamically stable and maintaining appropriate oxygen saturations on 2 L/min via nasal cannula. The patient is currently sitting in her bedside recliner eating breakfast. She denies the presence of resting shortness of breath. She does continue to report the presence of a mild intermittently productive cough. Objective: The patient's most recent lab work, culture data and imaging studies have all been personally reviewed. Surface echocardiogram revealed normal LV size and function with an ejection fraction of 65%. Infectious work-up has been unrevealing to date. General: Alert, Cooperative, No apparent distress, - - Sitting in bedside recliner, eating breakfast. HEENT: Atraumatic, Normocephalic Oral: Moist Mucosa Neck: Supple, No Nodes, Trachea Midline Lungs: No rhonchi, No wheeze, No rales, Diminished Cardiovascular: Regular rate, Regular Rhythm Abdomen: Bowel Sounds Present, Soft, Non Tender Extremities: No clubbing, No cyanosis, No edema Skin: No breakdown Musculoskeletal: No Tenderness to Palpation of Joints or Extremities Lymphatic: No Cervical, Supraclavicular, or Inguinal Adenopathy Neurological: Cranial nerves II-XII grossly intact, Neuro grossly intact Psych/Mental Status: Alert and oriented to time, place, person, mood and affect Vital Signs Temp Pulse Resp BP Pulse Ox 97.4 F L 79 22 H 108/74 100 11/18/19 23:59 11/19/19 06:00 11/19/19 06:00 11/19/19 06:00 11/19/19 06:00 Oxygen Flow Rate (L/min) 1.5 Oxygen Delivery Method Nasal Cannula Weight: 171 lb 15.369 oz Body Mass Index (BMI) 25.9 Intake and Output for Last 24 Hours 11/17/19 11/18/19 11/19/19 23:59 23:59 23:59 Intake Total 5522.92 / 5522.92 4783.25 / 4783.25 183.75 / 183.75 Output Total 2110 / 2260 5005 / 5005 450 / 450 Balance 3412.92 / 3262.92 -221.75 / -221.75 -266.25 / -266.25 Labs (Last 48 Hours) 11/16/19 11/17/19 11/17/19 03:17 03:30 22:10 WBC RBC Hgb Hct MCV MCH MCHC RDW Std Deviation RDW Coeff of Kathy Plt Count MPV Immature Gran % (Auto) Neut % (Auto) Lymph % (Auto) [place] % (Auto) Eos % (Auto) Baso % (Auto) Absolute Neuts (auto) Absolute Lymphs (auto) Nucleated RBC % Diff Path Review Reviewed Sodium Potassium Chloride Carbon Dioxide Anion Gap BUN Creatinine Estim Creat Clear Calc Est GFR (MDRD) Af Amer Est GFR (MDRD) Non-Af BUN/Creatinine Ratio Glucose Calcium Magnesium 1.7 Vancomycin Trough 5.2 11/18/19 11/18/19 11/18/19 03:40 03:40 03:40 WBC 10.8 RBC 3.08 L Hgb 9.6 L Hct 28.1 L MCV 91.2 MCH 31.2 MCHC 34.2 RDW Std Deviation 43.4 RDW Coeff of Kathy 13.1 Plt Count 190 MPV 9.4 Immature Gran % (Auto) 0.600 Neut % (Auto) 78.6 H Lymph % (Auto) 12.8 L [place] % (Auto) 7.4 Eos % (Auto) 0.4 Baso % (Auto) 0.2 Absolute Neuts (auto) 8.5 H Absolute Lymphs (auto) 1.38 Nucleated RBC % 0 Diff Path Review Sodium 139 Potassium 3.2 L Chloride 110 H Carbon Dioxide 24.0 Anion Gap 5 BUN 6 L Creatinine 0.46 L Estim Creat Clear Calc 164.25 Est GFR (MDRD) Af Amer 219 Est GFR (MDRD) Non-Af 181 BUN/Creatinine Ratio 13.2 Glucose 87 Calcium 6.8 L Magnesium 1.8 Vancomycin Trough Microbiology 11/18/19 01:00 Sputum, Expectorated/Coughed Gram Stain - Final 11/16/19 06:45 Urine, Clean Catch Urine Culture - Final Mixed Gram Pos & Gram Neg Org 11/16/19 03:17 Blood Culture (Wb) - Anticubital Right Blood Culture - Preliminary No growth in 48 hours. 11/16/19 03:17 Blood Culture (Wb) - Left Forearm Blood Culture - Preliminary No growth in 48 hours. Clinical Impression(s) from Imaging Studies Gallbladder Ultrasound 11/16/19 02:57 IMPRESSION: Possible focal fatty deposition into the liver as above, however increased since previous examination. As this has changed the previous ultrasound examination, consideration of a noncontrast and contrast-enhanced dynamic CT liver or MRI is recommended for better delineation exclusion off other pathology. Markedly distended gallbladder containing sludge, however no wall thickening or ultrasonographic Macias''s sign to suggest acute cholecystitis. Partially obscured pancreas tail. Electronically Signed: Bianka Fulton MD at 4:56 EDT , Service support , ADDENDUM: 11/16/19 0515 Abdomen/Pelvis CT 11/16/19 04:26 IMPRESSION: Findings suggestive of pyelonephritis/ureteritis of the right genitourinary system. Distended gallbladder, no gallbladder inflammation or sludge detected. Injuries involving the liver along the falciform ligament likely focal fatty sparing. Changes along the liver parenchyma periphery on ultrasound is not demonstrated. There is no appendicitis, colitis, abscess, collection, perforation or obstruction. Intrauterine device in suboptimal positioning. Right involuting ovarian cyst/follicles. Electronically Signed: Bianka Fulton MD at 5:05 EDT , Service support , Chest X-Ray 11/16/19 11:05 IMPRESSION: Status post right internal jugular central venous catheter placement. No active pulmonary disease. Electronically Signed: Rafa Torres MD at 12:19 EDT Tel , Service support , Chest X-Ray 11/18/19 10:25 IMPRESSION: Development of bibasilar opacifications, left greater than right as well as bilateral pleural effusions, left greater than right since the previous study. Findings likely represent bilateral infiltrates though CHF or drug interaction could have similar findings. Follow-up recommended to ensure resolution Electronically Signed: Marcio Cardoza MD at 10:46 EDT , Service support , Medical Necessity - Tobacco Use Smoking Status: Current every day smoker Tobacco Use: Cigarettes Assessment/Plan All Active Problems (Last Reviewed 10/02/19 @ 13:52 by Kyle Mejia) Acute sepsis (Acute) Acute pyelonephritis (Acute) Sepsis (Acute) Pyelonephritis (Acute) Anemia associated with acute blood loss (Acute) hemorrhage, delayed (> 24 hrs) (Acute) hemorrhage of vagina (Acute) Missed (Acute) RECOMMENDATIONS: 1. Continue antimicrobials as ordered. Likely okay to de-escalate to p.o. antibiotic regimen, with plans to complete 7 days of treatment. 2. Wean supplemental oxygen to maintain saturations at or above 90%. 3. Encourage incentive spirometer use and mobilize patient as tolerated. 4. Continue nicotine replacement therapy. 5. The patient is medically stable for transfer out of the intensive care unit. Given the patient's lack of further ICU or pulmonary needs, will sign off. Please call with any additional questions. IMPRESSIONS: 1. Septic shock Improved. Appears to be secondary to complicated urinary tract source of infection/pyelonephritis versus left lower lobe pneumonia. Plan to continue current supportive measures including antimicrobials. The patient has been weaned from vasopressor support and remains hemodynamically stable. Continue to monitor clinically. Plan to complete a total treatment duration of 7 days of antibiotics. 2. Acute kidney injury Resolved. Likely prerenal in etiology and related to #1. Continue to monitor urine output. No indication for renal replacement therapy. 3. History of polysubstance abuse/anxiety/depression/tobacco dependency Complicates care, management, recovery and prognosis. Smoking cessation counseling was provided. Nicotine replacement therapy can be continued while admitted to the hospital. This note was generated with [employer] dictation software. It may contain incorrect words, spelling, and punctuation that were not noted in checking the note before signing. Inpatient E&M: 37939 Subs Hosp L2
[2019-11-19] MEDS: Ibuprofen 600 MG Tablet PO ×2 (08:06→21:32)
--- NOTE | 2019-11-19 09:13 | PCM.PN.HOSP ---
Patient Problems: Active and Suspected Problems (Last Reviewed 10/02/19 @ 13:52 by Kyle Mejia) Acute sepsis (Acute) Acute pyelonephritis (Acute) Sepsis (Acute) Pyelonephritis (Acute) Reason for Visit: Follow-up on septic shock, right pyelonephritis Subjective: Patient was seen and examined. She feels tired and achy. Denies fever, chills, chest pain. BP is improved. Objective: Physical exam: General: Alert, oriented x3, not pale, not jaundice, well hydrated HEENT: Atraumatic, PERRLA, EOMI, Normocephalic Oral: Dry Mucosa Neck: Supple, No JVD, Negative Carotid Bruits Lungs: Clear to auscultation, Normal air movement, No rhonchi, Tachypneic Cardiovascular: Tachycardic, normal S1 and S2, no murmurs Abdomen: Bowel Sounds Present, Soft, Non-Distended, No Hepato-splenomegaly, right costophrenic angle tenderness + Extremities: No edema Skin: No rashes, no breakdown Musculoskeletal: No Tenderness to Palpation of Joints or Extremities Lymphatic: No Cervical, Supraclavicular, or Inguinal Adenopathy Neurological: Cranial nerves II-XII grossly intact, - -power 5/5 in all extremities, normal tone Vitals/I&O's: Vital Signs Temp Pulse Resp BP Pulse Ox 97.4 F L 86 12 104/71 97 11/18/19 23:59 11/19/19 07:00 11/19/19 07:00 11/19/19 07:00 11/19/19 07:30 Oxygen Flow Rate (L/min) 1.5 Oxygen Delivery Method Nasal Cannula Weight: 78 kg Body Mass Index (BMI) 25.9 Intake and Output for Last 24 Hours 11/17/19 11/18/19 11/19/19 23:59 23:59 23:59 Intake Total 5522.92 / 5522.92 4783.25 / 4783.25 183.75 / 183.75 Output Total 2110 / 2260 5005 / 5005 450 / 450 Balance 3412.92 / 3262.92 -221.75 / -221.75 -266.25 / -266.25 Microbiology Past 72 Hours 11/18/19 01:00 Sputum, Expectorated/Coughed Gram Stain - Final 11/18/19 01:00 Sputum, Expectorated/Coughed Respiratory Culture - Preliminary Presumptive C albicans 11/16/19 06:45 Urine, Clean Catch Urine Culture - Final Mixed Gram Pos & Gram Neg Org 11/16/19 03:17 Blood Culture (Wb) - Anticubital Right Blood Culture - Preliminary No growth in 48 hours. 11/16/19 03:17 Blood Culture (Wb) - Left Forearm Blood Culture - Preliminary No growth in 48 hours. Laboratory Results 11/16/19 03:17: Diff Path Review Reviewed 11/18/19 03:40: Magnesium 1.8 Current Medications Acetaminophen (Tylenol) 650 mg PO Q6H PRN PRN PRN Reason: Pain Score 1-10/Temp > 100.7 F Last Admin: 11/19/19 04:03 Dose: 650 mg Documented by: Al Hydroxide/Mg Hydroxide (Mylanta Ii) 30 ml PO Q6H PRN PRN PRN Reason: Gastric Burning Albuterol Sulfate (Ventolin Aerosols) 2.5 mg INHALATION Q2H PRN PRN PRN Reason: Dyspnea, wheezing Cefdinir (Omnicef [Equiv]) 300 mg PO Q12 SUSSY Furosemide (Lasix) 20 mg IV X1 ONE Stop: 11/19/19 09:13 Guaifenesin (Robitussin) 20 ml PO Q4H PRN PRN PRN Reason: COUGH Sodium Chloride () 250 mls @ 15 mls/hr IV .[id number] PRN PRN Reason: Saline Flush Last Infusion: 11/19/19 05:08 Dose: 0 mls/hr Documented by: Sodium Chloride () 250 mls @ 15 mls/hr IV .[id number] PRN PRN Reason: Additional IVPB Infusion Ibuprofen (Motrin) 600 mg PO Q8H PRN PRN PRN Reason: Pain Score 1-10/10 Last Admin: 11/19/19 08:06 Dose: 600 mg Documented by: Magnesium Hydroxide (Milk Of Magnesia) 30 ml PO DAILY PRN PRN PRN Reason: Constipation Nicotine (Nicoderm Cq (Pbkc)) 14 mg TRANSDERM. DAILY SUSSY Last Admin: 11/18/19 08:40 Dose: 14 mg Documented by: Ondansetron HCl (Zofran) 4 mg IV Q8H PRN PRN PRN Reason: NAUSEA/VOMITING Prochlorperazine Edisylate (Compazine Iv) 5 mg IV Q4H PRN PRN PRN Reason: Breakthrough nausea/vomiting Psyllium Hydrophilic Mucilloid (Metamucil) 1 packet PO DAILY PRN PRN PRN Reason: Constipation Senna/Docusate Sodium (Senokot-S, Alejandrina-Colace) 2 tablet PO BID PRN PRN PRN Reason: Constipation Sodium Chloride () 10 - 40 ml IV UD PRN PRN Reason: SALINE FLUSH Last Admin: 11/19/19 08:07 Dose: 30 ml Documented by: Temazepam (Restoril) 15 mg PO QHS PRN PRN PRN Reason: INSOMNIA Throat Lozenges (Cepacol Sore Throat Lozenge) 1 lozenge MUCOUS MEM Q2H PRN PRN PRN Reason: SORE THROAT STROKE Vital Signs/Narrative: Vital Signs Pulse Resp BP Pulse Ox 11/19/19 07:30 97 11/19/19 07:00 86 12 104/71 98 11/19/19 06:00 79 22 H 108/74 100 Medical Necessity - Tobacco Use Smoking Status: Current every day smoker Tobacco Use: Cigarettes Assessment/Plan All Active Problems (Last Reviewed 10/02/19 @ 13:52 by Kyle Mejia) Acute sepsis (Acute) Acute pyelonephritis (Acute) Sepsis (Acute) Pyelonephritis (Acute) Anemia associated with acute blood loss (Acute) hemorrhage, delayed (> 24 hrs) (Acute) hemorrhage of vagina (Acute) Missed (Acute) 1. Septic shock secondary to acute right pyelonephritis, resolved Blood pressure is improved. Off pressors and IVF. Blood cultures are negative x48 hours. Urine cultures are contaminated. WBC count is improved to 10.8 from 14.8. Off IV meropenem. Continue on po Cefdinir( day 4 of antibiotics), will aim for 7 days total. Repeat blood work in a.m. 2. Acute right pyelonephritis, seen on CT abdomen/pelvis Continue on po cefdinir 3. Hypoxia secondary to atelectasis/bibasilar infiltrate/bilateral pleural effusions, resolved, off oxygen 4. Hypokalemia/Hypomagnesemia, replaced, recheck in am 5. Hyponatremia, resolved 6. Anxiety/depression, on Seroquel, Will resume Seroquel 12.5mg BID and monitor for sedation 7. Polysubstance use, advised to quit 8. Nicotine dependence, on replacement 9. DVT PPx- Lovenox SC Inpatient E&M: 54068 Subs Hosp L2
[2019-11-19] MEDS: Furosemide 20 MG/2 ML VIAL IV (10:00)
[2019-11-19] MEDS: Cefdinir 300 MG Capsule PO ×2 (10:03→21:21)
--- NOTE | 2019-11-19 10:30 | CASEMGMT ---
Social Work SW met with pt and introduces self and role. Discussed HCPOA and LW with pt and that if pt does not have HCPOA, parents become decision maker if pt is unable. Pt does not want to complete documents at this time but is accepting of written information. Rack card provided and pt informed she can make out pt appointment with SW should she want to complete documents. SANDI Costa
[2019-11-19 10:42] LABS: Anion Gap 4 (5-15); BUN 4 mg/dL (7-18); BUN/Creat Ratio 9.7 RATIO (10-20); Calcium,Total 7.5 mg/dL (8.5-10.1); Chloride 108 mmol/L (98-107); Creatinine, Serum 0.41 mg/dL (0.55-1.02); EST Glomerular Filtration Rate 202 mL/min (>60); Est Glom Filt Rate - Afr Amer 245 mL/min (>60); Estimated Creatinine Clearance 184.28 ml/min; Glucose 96 mg/dL (74-106); Potassium 2.9 mmol/L (3.5-5.1); Sodium Level 142 mmol/L (136-145)
[2019-11-19 14:59] LABS: Magnesium 1.9 mg/dL (1.6-2.6)
[2019-11-19] MEDS: Potassium Chloride 10mEq/100mL 10 MEQ/100 ML IV.SOLN. 100 MEQ IV BOLUS ×2 (15:12→16:11)
[2019-11-19] MEDS: Magnesium Sulfate 1 GM in 0.9% Normal Saline 100 ML IV (19:39)
[2019-11-19] MEDS: QUEtiapine 25 MG Tablet 12.5 MG PO (21:31)
[2019-11-19] MEDS: guaiFENesin 10 ML UDC (200MG/10ML) 20 ML PO (21:34)
[2019-11-20 02:26] VITALS: BP 110/77; PULSE 66; RESP 16; TEMP 36.7; O2SAT 94
[2019-11-20 03:15] VITALS: PULSE 53
[2019-11-20 06:03] LABS: Absolute Lymphocyte Count 1.25 X10^3/uL (0.83-4.51); Absolute Neutrophil Count 3.3 X10^3/uL (2.0-7.7); Basophil# 0.03 X10^3/uL; Basophil% 0.5 % (0-1); Eosinophil# 0.12 X10^3/uL; Eosinophils% 2.2 % (0-5); Hematocrit 35.8 % (37-47); Hemoglobin 11.5 g/dL (12.0-15.0); Lymphocyte # 1.25 X10^3/ul (4.0); Lymphocyte % 22.7 % (19-41); Mean Corp Hgb Conc 32.1 g/dL (32-36); Mean Corpuscular Hgb 28.5 pg (27.0-32.0); Mean Corpuscular Volume 88.8 fL (81-99); Mean Platelet Vol. 9.9 fl (6.2-12.0); Monocyte# 0.75 X10^3/uL; Monocyte% 13.6 % (0-10); NRBC Flagged by Analyzer 0 % (0-5); Neutrophil # 3.29 X10^3/uL (2.7-7.7); Neutrophil % 59.9 % (47-70); Platelet Count 193 K/mm3 (150-450); RBC Distribution Width CV 14.8 % (11.6-14.6); RBC Distribution Width SD 48.6 fl (35.1-43.9); Red Blood Count 4.03 M/mm3 (4.2-5.4); White Blood Count 5.5 K/mm3 (4.4-11.0)
[2019-11-20 06:34] LABS: ALB/GLOB Ratio 0.7 RATIO (0.9-2.4); AST(SGOT) 40 U/L (15-37); Alanine Aminotransfer ALT/SGPT 48 U/L (13-56); Alkaline Phosphatase 111 U/L (45-117); Anion Gap 6 (5-15); BUN 7 mg/dL (7-18); BUN/Creat Ratio 15.1 RATIO (10-20); Calcium,Total 7.4 mg/dL (8.5-10.1); Chloride 110 mmol/L (98-107); Creatinine, Serum 0.46 mg/dL (0.55-1.02); EST Glomerular Filtration Rate 177 mL/min (>60); Est Glom Filt Rate - Afr Amer 214 mL/min (>60); Estimated Creatinine Clearance 164.25 ml/min; Glucose 86 mg/dL (74-106); Magnesium 2.2 mg/dL (1.6-2.6); Potassium 3.9 mmol/L (3.5-5.1); Sodium Level 142 mmol/L (136-145)
[2019-11-20 07:00] VITALS: PULSE 67
--- NOTE | 2019-11-20 08:00 | PCM.DC ---
- Discharge Diagnoses Current Active Problems: Current Active and Chronic Problems (Last Reviewed 10/02/19 @ 13:52 by Kyle Mejia) Acute sepsis (Acute) Acute pyelonephritis (Acute) Polysubstance abuse (Chronic) Anxiety (Chronic) Tobacco use (Chronic) Sepsis (Acute) Pyelonephritis (Acute) Reason(s) for Visit for Discharge Instructions: Septic shock, UTI You will use the following diet at home:: Regular Your food should be the consistency of: Regular Your liquids should be the consistency of: Regular/Thin Discharge Activity: Return to Normal Activity Additional Instructions: Complete your antibiotics as prescribed. Continue to keep yourself active and hydrated. You are strongly advised to quit smoking. Follow-up with your primary care doctor within 2 weeks. Allergies/Adverse Reactions: Allergies Penicillins [PCN] Allergy (Verified 10/02/19 13:52) Anaphylaxis Medications to take at Discharge acetaminophen 500 mg tablet 500 mg PO BID PRN #60 tab 10/02/19 ibuprofen 400 mg tablet 400 mg PO Q8H PRN #60 tab 10/02/19 Cefdinir [Omnicef [equiv]] 300 mg PO Q12 3 Days #7 cap 11/20/19 Quetiapine Fumarate [Seroquel] 12.5 mg PO BID 30 Days #60 tab 11/20/19 The following prescriptions were given: Cefdinir [Omnicef [equiv]] 300 mg PO Q12 3 Days #7 cap Transmission Status: Received by [employer] [facility] Quetiapine Fumarate [Seroquel] 12.5 mg PO BID 30 Days #60 tab Transmission Status: Received by [employer] [facility] Primary Care Physician: Denisha Vernon MD [Primary Care Provider] - Please follow up with your Primary Care Physician in: within 1-2 weeks Test Results: Test results from this visit will be discussed in further detail at your follow-up appointment, if applicable. Proposed Discharge Date: 11/20/19
--- NOTE | 2019-11-20 08:37 | PCM.DC.SUM ---
Discharge Date and Diagnosis Date of Admission: 11/16/19 Date of Discharge: 11/20/19 - Primary Discharge Diagnosis Acute Problems: Active Problems (Last Reviewed 10/02/19 @ 13:52 by Kyle Mejia) Septic shock Acute right pyelonephritis Hypoxia due to atelectasis Hypomagnesemia Hyponatremia Hypokalemia Nicotine dependence - Secondary Discharge Diagnosis Chronic Problems: Chronic Problems Polysubstance abuse (Chronic) Anxiety (Chronic) Tobacco use (Chronic) Hospital Course and Treatment Imaging Results: Clinical Impression(s) from Imaging Studies Gallbladder Ultrasound 11/16/19 02:57 IMPRESSION: Possible focal fatty deposition into the liver as above, however increased since previous examination. As this has changed the previous ultrasound examination, consideration of a noncontrast and contrast-enhanced dynamic CT liver or MRI is recommended for better delineation exclusion off other pathology. Markedly distended gallbladder containing sludge, however no wall thickening or ultrasonographic Macias''s sign to suggest acute cholecystitis. Partially obscured pancreas tail. Electronically Signed: Bianka Fulton MD at 4:56 EDT , Service support , ADDENDUM: 11/16/19 0515 Abdomen/Pelvis CT 11/16/19 04:26 IMPRESSION: Findings suggestive of pyelonephritis/ureteritis of the right genitourinary system. Distended gallbladder, no gallbladder inflammation or sludge detected. Injuries involving the liver along the falciform ligament likely focal fatty sparing. Changes along the liver parenchyma periphery on ultrasound is not demonstrated. There is no appendicitis, colitis, abscess, collection, perforation or obstruction. Intrauterine device in suboptimal positioning. Right involuting ovarian cyst/follicles. Electronically Signed: Bianka Fulton MD at 5:05 EDT , Service support , Chest X-Ray 11/16/19 11:05 IMPRESSION: Status post right internal jugular central venous catheter placement. No active pulmonary disease. Electronically Signed: Rafa Torres MD at 12:19 EDT Tel , Service support , Chest X-Ray 11/18/19 10:25 IMPRESSION: Development of bibasilar opacifications, left greater than right as well as bilateral pleural effusions, left greater than right since the previous study. Findings likely represent bilateral infiltrates though CHF or drug interaction could have similar findings. Follow-up recommended to ensure resolution Electronically Signed: Marcio Cardoza MD at 10:46 EDT , Service support , Critical care Operations: None Procedures: 2-D Echocardiogram, Central line placement Summary of Care Provided: The patient is a 24 year old F with past medical history of polysubstance use, anxiety/depression who comes in with severe abdominal pain especially in the right upper quadrant ongoing for 2 days associated with fever, nausea and vomiting. Work-up in the emergency department showed temperature 103.3 F, heart rate 123, respiratory 20, WBC count of 25.2, lactic acid was 1.2. UA was suggestive of UTI. CT of abdomen and pelvis showed right pyelonephritis/ureteritis of the right genitourinary system. Patient was initially managed as severe sepsis secondary to acute right pyelonephritis. She was started on IV fluids and IV antibiotics. Patient however progressively became hypotensive requiring transfer to the ICU, central line placement and antibiotics broadened. Patient was started on pressors. Feeling improved in the course of 1 to 2 days. Urine cultures came back with a mixed growth. Blood cultures on the day of discharge showed gram-negative cammy. Patient was taken off vancomycin and kept on IV meropenem. This was tapered off to oral cefdinir to complete a 1 week treatment. She was asked to follow-up with her primary care doctor within 1 to 2 weeks for repeat blood work. Her Seroquel during the hospital stay was decreased to 5 mg twice daily to 12.5 mg twice daily on account of lethargy. Subjective: On the day of discharge, patient was seen and examined. Denied any new complaints. No fevers or chills. Complains of feeling very tired. Objective: Physical exam: General: Alert, oriented x3, not pale, not jaundice, well hydrated HEENT: Atraumatic, PERRLA, EOMI, Normocephalic Oral: Dry Mucosa Neck: Supple, No JVD, Negative Carotid Bruits Lungs: Clear to auscultation, Normal air movement, No rhonchi, Tachypneic Cardiovascular: Tachycardic, normal S1 and S2, no murmurs Abdomen: Bowel Sounds Present, Soft, Non-Distended, No Hepato-splenomegaly, right costophrenic angle tenderness + Extremities: No edema Skin: No rashes, no breakdown Musculoskeletal: No Tenderness to Palpation of Joints or Extremities Lymphatic: No Cervical, Supraclavicular, or Inguinal Adenopathy Neurological: Cranial nerves II-XII grossly intact, - -power 5/5 in all extremities, normal tone - Physical Exam Vitals/I&O's: Vital Signs Temp Pulse Resp BP Pulse Ox 98.1 F 67 16 110/77 94 11/20/19 02:26 11/20/19 07:00 11/20/19 02:26 11/20/19 02:26 11/20/19 02:26 Oxygen Flow Rate (L/min) 1.5 Oxygen Delivery Method Room Air Weight: 77.6 kg Body Mass Index (BMI) 25.9 Intake and Output for Last 24 Hours 11/18/19 11/19/19 11/20/19 23:59 23:59 23:59 Intake Total 4783.25 / 4783.25 604.08 / 924.08 320 / 320 Output Total 5005 / 5005 1725 / 1725 Balance -221.75 / -221.75 -1120.92 / -800.92 320 / 320 Microbiology Past 72 Hours 11/18/19 01:00 Sputum, Expectorated/Coughed Gram Stain - Final 11/18/19 01:00 Sputum, Expectorated/Coughed Respiratory Culture - Final Presumptive C albicans 11/16/19 03:17 Blood Culture (Wb) - Left Forearm Blood Culture - Preliminary No growth in 48 hours. 11/16/19 06:45 Urine, Clean Catch Urine Culture - Final Mixed Gram Pos & Gram Neg Org 11/16/19 03:17 Blood Culture (Wb) - Anticubital Right Blood Culture - Preliminary No growth in 48 hours. Laboratory Results 11/19/19 10:11: Sodium 142, Potassium 2.9 L, Chloride 108 H, Carbon Dioxide 30.0, Anion Gap 4 L, BUN 4 L, Creatinine 0.41 L, Estim Creat Clear Calc 184.28, Est GFR (MDRD) Af Amer 245, Est GFR (MDRD) Non-Af 202, BUN/Creatinine Ratio 9.7 L, Glucose 96, Calcium 7.5 L 11/19/19 10:11: Magnesium 1.9 11/20/19 05:20: WBC 5.5, RBC 4.03 L, Hgb 11.5 L, Hct 35.8 L, MCV 88.8, MCH 28.5, MCHC 32.1 D, RDW Std Deviation 48.6 H, RDW Coeff of Kathy 14.8 H, Plt Count 193, MPV 9.9, Immature Gran % (Auto) 1.100 H, Neut % (Auto) 59.9, Lymph % (Auto) 22.7, [facility] % (Auto) 13.6 H, Eos % (Auto) 2.2, Baso % (Auto) 0.5, Absolute Neuts (auto) 3.3, Absolute Lymphs (auto) 1.25, Nucleated RBC % 0 11/20/19 05:20: Sodium 142, Potassium 3.9, Chloride 110 H, Carbon Dioxide 26.0, Anion Gap 6, BUN 7, Creatinine 0.46 L, Estim Creat Clear Calc 164.25, Est GFR (MDRD) Af Amer 214, Est GFR (MDRD) Non-Af 177, BUN/Creatinine Ratio 15.1, Glucose 86, Calcium 7.4 L, Magnesium 2.2, Total Bilirubin 0.40, AST 40 H, ALT 48, Alkaline Phosphatase 111, Total Protein 5.0 L, Albumin 2.0 L, Globulin 3.0, Albumin/Globulin Ratio 0.7 L Current Medications Acetaminophen (Tylenol) 650 mg PO Q6H PRN PRN PRN Reason: Pain Score 1-10/Temp > 100.7 F Last Admin: 11/19/19 04:03 Dose: 650 mg Documented by: Al Hydroxide/Mg Hydroxide (Mylanta Ii) 30 ml PO Q6H PRN PRN PRN Reason: Gastric Burning Albuterol Sulfate (Ventolin Aerosols) 2.5 mg INHALATION Q2H PRN PRN PRN Reason: Dyspnea, wheezing Cefdinir (Omnicef [Equiv]) 300 mg PO Q12 SUSSY Last Admin: 11/19/19 21:21 Dose: 300 mg Documented by: Guaifenesin (Robitussin) 20 ml PO Q4H PRN PRN PRN Reason: COUGH Last Admin: 11/19/19 21:34 Dose: 20 ml Documented by: Sodium Chloride () 250 mls @ 15 mls/hr IV .[id number] PRN PRN Reason: Saline Flush Last Infusion: 11/19/19 05:08 Dose: 0 mls/hr Documented by: Sodium Chloride () 250 mls @ 15 mls/hr IV .[id number] PRN PRN Reason: Additional IVPB Infusion Ibuprofen (Motrin) 600 mg PO Q8H PRN PRN PRN Reason: Pain Score 1-10/10 Last Admin: 11/19/19 21:32 Dose: 600 mg Documented by: Magnesium Hydroxide (Milk Of Magnesia) 30 ml PO DAILY PRN PRN PRN Reason: Constipation Nicotine (Nicoderm Cq (Pbkc)) 14 mg TRANSDERM. DAILY SUSSY Last Admin: 11/19/19 10:01 Dose: 14 mg Documented by: Ondansetron HCl (Zofran) 4 mg IV Q8H PRN PRN PRN Reason: NAUSEA/VOMITING Prochlorperazine Edisylate (Compazine Iv) 5 mg IV Q4H PRN PRN PRN Reason: Breakthrough nausea/vomiting Psyllium Hydrophilic Mucilloid (Metamucil) 1 packet PO DAILY PRN PRN PRN Reason: Constipation Quetiapine Fumarate (Seroquel) 12.5 mg PO BID SUSSY Last Admin: 11/19/19 21:31 Dose: 12.5 mg Documented by: Senna/Docusate Sodium (Senokot-S, Alejandrina-Colace) 2 tablet PO BID PRN PRN PRN Reason: Constipation Sodium Chloride () 10 - 40 ml IV UD PRN PRN Reason: SALINE FLUSH Last Admin: 11/19/19 21:42 Dose: 10 ml Documented by: Temazepam (Restoril) 15 mg PO QHS PRN PRN PRN Reason: INSOMNIA Throat Lozenges (Cepacol Sore Throat Lozenge) 1 lozenge MUCOUS MEM Q2H PRN PRN PRN Reason: SORE THROAT Discharge Diet: No Restrictions Discharge Activity: Return to Normal Activity Home Medications: Medications to take at Discharge acetaminophen 500 mg tablet 500 mg PO BID PRN #60 tab 10/02/19 ibuprofen 400 mg tablet 400 mg PO Q8H PRN #60 tab 10/02/19 Cefdinir [Omnicef [equiv]] 300 mg PO Q12 3 Days #7 cap 11/20/19 Quetiapine Fumarate [Seroquel] 12.5 mg PO BID 30 Days #60 tab 11/20/19 Following Prescriptions Were Given to Patient: Cefdinir [Omnicef [equiv]] 300 mg PO Q12 3 Days #7 cap Transmission Status: Received by [employer] [facility] Quetiapine Fumarate [Seroquel] 12.5 mg PO BID 30 Days #60 tab Transmission Status: Received by [employer] [facility] Primary Care Physician: Denisha Vernon MD [Primary Care Provider] - Please follow up with your Primary Care Physician in: within 1-2 weeks Disposition: Home Minutes spent on discharge:: 40 Patient Condition:: Stable Medical Necessity - Tobacco Use Smoking Status: Current every day smoker Tobacco Use: Cigarettes Meaningful Use Info Meaningful Use Diagnoses (Choose all that apply): None applicable Inpatient E&M: [id number] [facility]
--- NOTE | 2019-11-20 09:00 | NURSING ---
Central line dc'd per orders. 2 sutures removed. Tip intact. Pressure held for 5 minutes. Vaseline guaze with 2x2 overtop secured with tegaderm. Instructed to lie flat for 30 minutes.
[2019-11-20 10:14] VITALS: BP 119/80; PULSE 61; RESP 16; TEMP 37.2; O2SAT 97
[2019-11-20] MEDS: Cefdinir 300 MG Capsule PO (10:23)
== END 2019-11-20 10:39 | disposition home or self-care (01) | DRG 720 ==
LOC: ED 05:22 → PCU 06:06 → ICU 11-17 19:56 → PCU 11-19 11:43
PROVIDERS: Internal Medicine Critical Care Medicine; Student in an Organized Health Care Education/Training Program; Admitting Provider Family Medicine; Emergency Provider Emergency Medicine; PCP Internal Medicine; Referring Provider Family Medicine; Visit Provider Internal Medicine
DX: A41.9 Sepsis, unspecified organism (principal); R65.21 Severe sepsis with septic shock; N10 Acute pyelonephritis; R09.02 Hypoxemia; J98.11 Atelectasis; E83.42 Hypomagnesemia; E87.1 Hypo-osmolality and hyponatremia; E87.6 Hypokalemia; F17.210 Nicotine dependence, cigarettes, uncomplicated; F15.11 Other stimulant abuse, in remission; F11.11 Opioid abuse, in remission; F32.9 Major depressive disorder, single episode, unspecified; F41.9 Anxiety disorder, unspecified; K82.8 Other specified diseases of gallbladder; N17.0 Acute kidney failure with tubular necrosis
CPT/HCPCS: 36415; 71045; 74177; 76705; 80048; 80053; 80202; 81001; 83605; 83690; 83735; 84703; 85025; 86703; 86706; 86803; 87040; 87070; 87077; 87086; 87088; 87186; 87205; 87340; 87491; 87591; 93306; 99251; 99285; 99406; J2185; J7030; J7040; J7050; Q9967; A4216; G0463; J0744; J1940; J2405

== ENCOUNTER 2022-02-24 07:18 | Emergency (ER) | payer MEDICAID, SELFPAY ==
[2022-02-24 07:19] VITALS: BP 121/94; PULSE 98; RESP 18; TEMP 37.1; O2SAT 98; BMI 22.8
--- NOTE | 2022-02-24 07:30 | EDS_ITS ---
HPI History of Present Illness Chief Complaint: Lower Extremity Injury Narrative Narrative: 26-year-old female presenting with left knee pain. She states on the medial side of the knee. She states it started about a week ago when she was walking. She did not hear a pop or click. She states that at times it feels like it is her pinched nerve in the medial joint line. Other times it feels okay. Walking sometimes makes it worse and sometimes makes it better. Sitting still does not necessarily make it better. She tried Tylenol a couple times but nothing else. She has applied ice to it. Denies any direct trauma. She is ambulatory. [facility] Medical History Chronic migraine History of drug abuse History of emotional problems History of gallstones Home Medications acetaminophen 500 mg tablet (Tylenol Extra Strength) 500 mg PO BID PRN fever or pain #60 tabs 10/02/19 [Rx Last Taken 02/23/22 22:00] ibuprofen 400 mg tablet 400 mg PO Q8H PRN fever or pain #60 tabs 10/02/19 [Rx Last Taken Unknown] naproxen 500 mg tablet (Naprosyn) 500 mg PO BID PRN pain #20 tabs 02/24/22 [Rx Last Taken Unknown] Allergy/AdvReac Type Severity Reaction Status Date / Time Penicillins [PCN] Allergy Anaphylaxis Verified 02/24/22 07:19 Family History Father Alcoholism Anxiety Depression Hypertension Suicide Mother Thyroid disorder Social History Smoking Status: Current every day smoker tobacco type: cigarettes ROS ROS ED Constitutional Constitutional ED: Denies chills or fever(s) Eyes Eyes: Denies change in vision or diplopia ENT ENT ED: Denies rhinorrhea or sore throat Cardiovascular Cardiovascular: Denies chest pain or palpitations Respiratory/Chest Respiratory/Chest: Denies cough or dyspnea Gastrointestinal Gastrointestinal: Denies abdominal pain or constipation Genitourinary Genitourinary ED: Denies dysuria or hematuria Musculoskeletal Musculoskeletal: Reports other Details: Left knee pain ; Denies arthralgias Integumentary Denies abscess or Abrasions Neurologic Neurologic: Denies headache(s) or paresthesias EXAM Physical Exam Const Vital Signs: 11/24/22 07:19 Temperature 98.8 F Temperature Source Temporal Pulse Rate 98 Respiratory Rate 18 Blood Pressure 121/94 H Blood Pressure Mean 103 Pulse Ox 98 Oxygen Delivery Method Room Air Positive well nourished General Appearance ED: NAD IVAN Reports moist mucous membranes Resp normal respiratory effort Cardio regular rate and regular rhythm Extremity Extremity Narrative: Tenderness to palpation over the left medial joint line. Pain is worsened with valgus strain. No ligamentous laxity. No increased warmth, redness. There is no significant swelling. Patient able to flex and extend her knee without much difficulty. Left knee extensor mechanism is intact Neuro oriented x3 and CN's II-XII intact bilaterally Sensorium / Orientation: alert Motor Exam: strength 5/5 throughout Psych mental status grossly normal Skin no wounds MDM MDM MDM Narrative Medical decision making narrative: 26-year-old female presenting with left knee pain for the last 5 days. She denies any trauma. She is ambulatory. She states that Tylenol is not helping. She states it aches whether she walks or sits still. There is no significant swelling. No redness, erythema. There is no concern for a septic joint here. I do not suspect bursitis. I do suspect likely meniscal tear. I will obtain an x-ray of the right knee. Patient given Naprosyn 500 mg p.o. 4 views of the left knee on my interpretation show no acute fracture or other pathology. Patient placed in Ramin wrap. She is given follow-up. She is counseled to use ice and rest as well as compression. Impression: 1. Knee strain Lab Data Attestation: I reviewed the patient's lab results. Radiography Diagnostic Testing: Clinical Impression(s) from Imaging Studies Knee X-Ray 02/24/22 08:25 IMPRESSION: Normal x-ray examination of the knee. Electronically Signed: Mian Garcia MD at 8:41 EST , Discharge Plan Triage Chief Complaint: Lower Extremity Injury ED Provider: Dorno Youngblood Dx/Rx/DC Orders Instructions: ED Meniscal Injury Knee Poss, ED Knee Sprain Prescriptions: New naproxen [Naprosyn] 500 mg tablet 500 mg PO BID PRN (Reason: pain) Qty: 20 0RF No Action ibuprofen 400 mg tablet 400 mg PO Q8H PRN (Reason: fever or pain) Qty: 60 1RF acetaminophen [Tylenol Extra Strength] 500 mg tablet 500 mg PO BID PRN (Reason: fever or pain) Qty: 60 1RF Primary Care Provider: Care Physician,No Primary Referrals: Kj Plasencia MD [Med Staff - Active Staff] - 3-5 Days Care Physician,No Primary [Primary Care Provider] - Disposition Disposition: Home, Self Care
[2022-02-24] MEDS: Naproxen 500 MG Tablet PO (07:43)
--- NOTE | 2022-02-24 08:25 | RAD_ITS ---
STUDY: X-RAY - LEFT KNEE REASON FOR EXAM: Female, 26 years old. PAIN pt. states knee pain for one week, not sure about injury, pt. able to walk to the department and bear weight TECHNIQUE: 4 view(s) of the knee. COMPARISON: None. FINDINGS: Normal visualized distal femur. Normal visualized proximal tibia and fibula. Normal proximal tibiofibular articulation. There is no demonstrated fracture. Normal medial femorotibial compartment. Normal lateral femorotibial compartment. Normal patellofemoral articulation. There is no demonstrated joint effusion. The soft tissue structures are unremarkable. RAD/Knee 4 or More Views IMPRESSION: Normal x-ray examination of the knee. Electronically Signed: Mian Garcia MD at 8:41 EST ,
[2022-02-24 09:10] VITALS: BP 103/72; PULSE 87; RESP 16; TEMP 36.8; O2SAT 100
== END 2022-02-24 09:10 | disposition home or self-care (01) ==
PROVIDERS: Emergency Provider Student in an Organized Health Care Education/Training Program; Visit Provider Student in an Organized Health Care Education/Training Program
DX: S83.91XA Sprain of unspecified site of right knee, initial encounter (principal); F17.210 Nicotine dependence, cigarettes, uncomplicated; X58.XXXA Exposure to other specified factors, initial encounter
CPT/HCPCS: 73564; 99283

== ENCOUNTER 2023-08-03 22:16 | Emergency (ER) | payer OTHER, MEDICAID, SELFPAY ==
[2023-08-03 22:17] VITALS: BP 123/80; PULSE 115; RESP 18; TEMP 36.5; O2SAT 97; BMI 24.3
--- NOTE | 2023-08-03 22:37 | RAD_ITS ---
EXAM: XR LEFT HAND COMPLETE, 3 OR MORE VIEWS CLINICAL INDICATION: PAIN, SWELLING TECHNIQUE: Frontal, lateral and oblique views of the left hand. COMPARISON: No relevant prior studies available. FINDINGS: BONES/JOINTS: Fifth digit distal phalanx lytic lesion at the palmar aspect of the base, measuring 5 x 3 mm. Appearance is nonspecific but differential diagnosis may include enchondroma. No acute or healing fracture or malalignment. No joint space narrowing or any other significant arthritic changes. SOFT TISSUES: Soft tissues are normal. No soft tissue swelling or gas. No radiopaque foreign body. RAD/Hand Min 3 Views IMPRESSION: 1. No acute fracture or malalignment. 2. Fifth digit distal phalanx lytic lesion at the base measuring 5 x 3 mm. Electronically Signed: Miguel Tyler MD at 23:29 EDT ,
[2023-08-03] MEDS: Acetaminophen 500 MG Tablet 1000 MG PO (22:50)
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
[2023-08-03 23:57] VITALS: BP 116/87; PULSE 74; RESP 16; TEMP 36.1; O2SAT 99
== END 2023-08-03 23:59 | disposition home or self-care (01) ==
PROVIDERS: Emergency Provider Emergency Medicine; Visit Provider Emergency Medicine
DX: S63.617A Unspecified sprain of left little finger, initial encounter (principal); S80.02XA Contusion of left knee, initial encounter; F17.210 Nicotine dependence, cigarettes, uncomplicated; V28.91XA Unspecified electric (assisted) bicycle rider injured in noncollision transport accident in traffic accident, initial encounter; D16.12 Benign neoplasm of short bones of left upper limb
CPT/HCPCS: 73130; 99283

== ENCOUNTER 2023-08-16 05:18 | Emergency (ER) | payer MEDICAID, SELFPAY ==
[2023-08-16 05:19] VITALS: BP 117/87; PULSE 106; RESP 16; TEMP 36.5; O2SAT 99; BMI 24.8
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
--- NOTE | 2023-08-16 05:24 | RAD_ITS ---
INDICATION: pain, fracture -- 5th EXAMINATION/TECHNIQUE: X-RAY - LEFT HAND XR Fingers Min 2 Views COMPARISON: 08/03/2023 x-rays. FINDINGS: SOFT TISSUES: Unremarkable. BONES/JOINTS: No fracture or dislocation. No significant degenerative changes. No erosive changes. Stable sclerotic changes of the distal phalanx of the fifth finger. RAD/Finger(s) Min 2 Views IMPRESSION: No fracture or dislocation of the left fifth finger. Electronically Signed: Tyler Jackson DO at 5:55 EDT ,
[2023-08-16] MEDS: Ibuprofen 600 MG Tablet PO (05:57)
[2023-08-16 05:58] VITALS: BP 119/77; PULSE 91; RESP 16; TEMP 36.6; O2SAT 98
== END 2023-08-16 06:02 | disposition home or self-care (01) ==
PROVIDERS: Emergency Provider Emergency Medicine; Visit Provider Emergency Medicine
DX: S63.617A Unspecified sprain of left little finger, initial encounter (principal); F17.210 Nicotine dependence, cigarettes, uncomplicated; V28.41XA Electric (assisted) bicycle driver injured in noncollision transport accident in traffic accident, initial encounter
CPT/HCPCS: 73140; 99282

== ENCOUNTER 2023-09-22 01:33 | Emergency (ER) | payer OTHER, MEDICAID, SELFPAY ==
[2023-09-22 01:34] VITALS: BP 105/73; PULSE 103; RESP 16; TEMP 36.7; O2SAT 96; BMI 24.5
--- NOTE | 2023-09-22 02:19 | EX.ED.DYSGE1 ---
HPI History of Present Illness Chief Complaint: Rash Informant: patient Narrative Narrative: Patient is a 28-year-old female with past medical history of anxiety polysubstance abuse and tobacco use. She states over the last 2 to 3 days she has noticed a pruritic rash around her right rib cage. She also states has been a rash to the posterior neck. She denies any known contacts and states that no one else at home has a rash. However with concern this could be potential infectious she comes in for evaluation. [facility] Medical History (Updated 09/22/23 @ 02:[address] Miguel Nix DO) Chronic migraine History of gallstones History of emotional problems History of drug abuse Home Medications ?Medication ?Instructions ?Recorded ?Last Taken ?Type ketoconazole 2 % topical cream 1 applic topical DAILY 14 days #60 09/22/23 Unknown Rx grams prednisone 20 mg tablet 40 mg (2 x 20 mg) PO DAILY 5 days 09/22/23 Unknown Rx #10 tabs Allergy/AdvReac Type Severity Reaction Status Date / Time Penicillins (PCN) Allergy Anaphylaxis Verified 09/22/23 01:36 Family History Father Alcoholism Anxiety Depression Hypertension Suicide Mother Thyroid disorder Social History Smoking Status: Current every day smoker tobacco type: cigarettes ROS ROS ED Constitutional Constitutional ED: Denies chills or fever(s) Eyes Eyes: Denies change in vision ENT ENT ED: Denies sore throat Cardiovascular Cardiovascular: Denies chest pain Respiratory/Chest Respiratory/Chest: Denies cough or dyspnea Gastrointestinal Gastrointestinal: Denies abdominal pain, diarrhea, nausea or vomiting Genitourinary Genitourinary ED: Denies dysuria Musculoskeletal Musculoskeletal: Denies myalgias Integumentary Reports rash Neurologic Neurologic: Denies headache(s) Hematologic/Lymphatic Hematologic/Lymphatic: Denies easy bleeding or easy bruising EXAM Physical Exam Const Vital Signs: 09/22/23 01:34 09/22/23 03:24 Temperature 98.1 F 98.4 F Temperature Source Temporal Pulse Rate 103 H 81 Respiratory Rate 16 16 Blood Pressure 105/73 104/69 Blood Pressure Mean 83 80 Pulse Ox 96 99 Oxygen Delivery Method Room Air Positive well nourished and well developed General Appearance ED: well developed HEENT HEENT Narrative: No tongue or lip swelling no oral lesions no airway edema or compromise Eyes PERRL and EOMs intact bilaterally Neck supple Neck Narrative: Along the posterior portion of the neck patient has erythematous punctate pustule lesions most consistent with cellulitis that are associated with the hair follicle. No surrounding soft tissue changes to suggest abscess or cellulitis Chest Wall Chest Narrative: Along the right anterior lateral rib cage rib regions 9-11 patient has 2 erythematous blanchable circular lesions with zones of central clearing most consistent with cutaneous tinea. Resp normal respiratory effort and clear to auscultation bilaterally Cardio regular rate and regular rhythm Extremity normal to inspection Neuro oriented x3, CN's II-XII intact bilaterally and no sensory deficits noted Sensorium / Orientation: alert Motor Exam: strength 5/5 throughout Psych mental status grossly normal Skin Skin Narrative: Lesions of the posterior neck and the right rib cage as documented above MDM MDM MDM Narrative Medical decision making narrative: Patient arrived to ER with stable vitals and denied any known new exposures or states there has been no other people at home with the rash. The rash along the rib cage has a circular red raised appearance with signs of central clearing which is most consistent with an ringworm. Posterior neck rash seems to be associated with each follicle and there is small pustule associated with this most consistent with folliculitis and I do not appreciate obvious abscess or cellulitis. The rash is not in any other places and that does not involve the palms or soles and patient is not having airway compromise secondary to this. Therefore should be given ketoconazole cream for her ringworm and being placed on steroids for the cheilitis but without findings of systemic infection or respiratory distress she is otherwise safe for discharge History & Record Review Discussion w/independent historian: Patient Discharge Plan Triage Chief Complaint: Rash ED Provider: Miguel Nix Dx/Rx/DC Orders Clinical Impression: Ringworm, Folliculitis, Tobacco use Instructions: ED Folliculitis, ED Ringworm of the Skin Prescriptions: New prednisone 20 mg tablet 40 mg PO DAILY 5 Days Qty: 10 0RF ketoconazole 2 % cream 1 applic topical DAILY 14 Days Qty: 60 0RF Primary Care Provider: Care Physician,No Primary Referrals: Sandeep Green MD [Med Staff - Active Staff] - Care Physician,No Primary [Primary Care Provider] - Activity Restrictions/Additional Instructions: Your exam is consistent with a topical fungal infection along your right chest wall and therefore used the ketoconazole cream to help resolve this. You may use the cream for up to 21 days if necessary. Use a abrasive wash to the back of your neck as this will help open the pores and resolve your folliculitis. Use the steroid as directed to help reduce inflammation and itch and return to the ER should you have any further concerns Print Language: Georgian Disposition Disposition: Home, Self Care Discharge Date/Time: 09/22/23 03:27
[2023-09-22 03:24] VITALS: BP 104/69; PULSE 81; RESP 16; TEMP 36.9; O2SAT 99
[2023-09-22] MEDS: predniSONE 20 MG Tablet 60 MG PO (03:25)
== END 2023-09-22 03:27 | disposition home or self-care (01) ==
PROVIDERS: Emergency Provider Emergency Medicine; Visit Provider Emergency Medicine
DX: L73.9 Follicular disorder, unspecified (principal); F17.210 Nicotine dependence, cigarettes, uncomplicated; B35.8 Other dermatophytoses
CPT/HCPCS: 99282

== ENCOUNTER 2024-01-14 21:28 | Emergency (ER) | payer MEDICAID, SELFPAY ==
[2024-01-14 21:28] VITALS: BP 123/87; PULSE 100; RESP 16; TEMP 35.9; O2SAT 100; BMI 25.0
--- NOTE | 2024-01-14 21:43 | EKG12_ITS ---
Test Reason : CP Blood Pressure : / mmHG Vent. Rate : 078 BPM Atrial Rate : 077 BPM P-R Int : 134 ms QRS Dur : 082 ms QT Int : 358 ms P-R-T Axes : 004 051 026 degrees QTc Int : 408 ms Normal sinus rhythm [employer]ELINE [employer] Confirmed by Donato Denney ([id number]), restaurant expeditor SANTIAGO ORTIZ ([id number]) on 01/16/2024 8:25:13 AM Referred By: TL Confirmed By:Donato Denney
[2024-01-14 22:02] LABS: Absolute Lymphocyte Count 2.67 X10^3/uL (0.83-4.51); Absolute Neutrophil Count 4.3 X10^3/uL (2.0-7.7); Basophil# 0.05 X10^3/uL; Basophil% 0.6 % (0-1); Eosinophil# 0.03 X10^3/uL; Eosinophils% 0.4 % (0-5); Hematocrit 35.9 % (37-47); Hemoglobin 12.1 g/dL (12.0-15.0); Lymphocyte # 2.67 X10^3/ul (0.83-4.51); Lymphocyte % 34.5 % (19-41); Mean Corp Hgb Conc 33.7 g/dL (32-36); Mean Corpuscular Hgb 30.3 pg (27.0-32.0); Monocyte# 0.69 X10^3/uL; Monocyte% 8.9 % (0-10); NRBC Flagged by Analyzer 0 % (0-5); Neutrophil # 4.27 X10^3/uL (2.7-7.7); Neutrophil % 55.3 % (47-70); Platelet Count 304 K/mm3 (150-450); RBC Distribution Width CV 12.5 % (11.6-14.6); RBC Distribution Width SD 41.2 fl (35.1-43.9); Red Blood Count 3.99 M/mm3 (4.2-5.4); White Blood Count 7.7 K/mm3 (4.4-11.0)
[2024-01-14 22:08] LABS: Internal QC Validated? YES +Cl - CLEAR BKGD; Pregnancy, Serum, hCG Quali. NEGATIVE Negative
--- NOTE | 2024-01-14 22:10 | ED.VIS.CHEST ---
HPI History of Present Illness Chief Complaint: Chest Pain Informant: patient Narrative Narrative: Left-sided chest pain with deep breath this evening. Yesterday and left leg swelling. Denies trauma. Denies recent travel, surgeries, or immobilizations. No history of PE or DVT. Tobacco history. She does have an IUD. Denies cough. Denies fever or chills. Chest pain has subsided on arrival. Denies family history of [place] at a young age. Prior Similar Symptoms: No PFSH PFSH Medical History (Updated 01/14/24 @ 23:[address] Kavin Prasad DO) Chronic migraine History of gallstones History of emotional problems History of drug abuse Allergy/AdvReac Type Severity Reaction Status Date / Time Penicillins (PCN) Allergy Anaphylaxis Verified 01/14/24 21:30 Family History Father Alcoholism Anxiety Depression Hypertension Suicide Mother Thyroid disorder Social History Smoking Status: Current every day smoker tobacco type: cigarettes and e-cigarettes ROS ROS ED Constitutional Constitutional ED: Denies chills, fever(s) or sweats Eyes Eyes: Denies change in vision ENT ENT ED: Denies dysphagia or sore throat Cardiovascular Cardiovascular: Reports chest pain and leg edema; Denies palpitations or racing heartbeat Respiratory/Chest Respiratory/Chest: Denies cough, dyspnea or dyspnea on exertion Gastrointestinal Gastrointestinal: Denies abdominal pain, diarrhea, nausea or vomiting Genitourinary Genitourinary ED: Denies dysuria, hematuria or urinary frequency Musculoskeletal Musculoskeletal: Denies back pain, extremity pain or neck pain Integumentary Denies rash or wounds Neurologic Neurologic: Denies headache(s), paresthesias or weakness EXAM Physical Exam Const Vital Signs: 01/14/24 21:28 01/14/24 21:54 01/14/24 21:55 Temperature 96.6 F L Temperature Source Temporal Pulse Rate 100 Respiratory Rate 16 Respiratory Effort Normal Non-Labored Blood Pressure 123/87 H Blood Pressure Mean 99 Pulse Ox 100 Oxygen Delivery Method Room Air Room Air 01/14/24 22:28 01/14/24 23:00 Temperature Temperature Source Pulse Rate 77 78 Respiratory Rate 20 H 19 H Respiratory Effort Blood Pressure 120/63 125/79 H Blood Pressure Mean 82 94 Pulse Ox 93 95 Oxygen Delivery Method Room Air Room Air Positive well nourished and well developed General Appearance ED: well developed and NAD HEENT Reports moist mucous membranes normocephalic and atraumatic Eyes EOMs intact bilaterally and conjunctivae normal General Eye ED: Yes normal appearance of both eyes Neck no lymphadenopathy and supple General: Negative for tenderness Chest Wall Chest: Negative for tenderness Resp normal respiratory effort and normal air movement Effort and Inspection: symmetric chest movement; Negative for respiratory distress Cardio regular rate, regular rhythm and no murmurs Peripheral Pulses: pulses 2+ throughout GI normal to inspection, nondistended, normoactive bowel sounds and non-tender Palpation: Negative for guarding or rebound tenderness present Back/Spine no CVA tenderness and no thoracic nor lumbar tenderness Extremity normal to inspection Extremity Narrative: Very slight asymmetric swelling minimal calf tenderness. No medial thigh tenderness. Soft compartments. Distal pulses intact. General Extremety ED: Yes edema and tenderness General Extremity: edema Neuro oriented x3 and no sensory deficits noted Sensorium / Orientation: awake and alert Skin no rashes or lesions noted and no wounds MDM MDM MDM Narrative Medical decision making narrative: Interventions / MDM: Differential diagnosis: Atypical chest pain, tobacco dependence Diagnosis considered but do not suspect: Pulmonary embolus however CTA negative. My EKG interpretation: Sinus rate of 78, no ST T wave changes artifacts baseline in anterior leads. Imaging independently reviewed and interpreted by myself: CT angiogram chest: Negative for pulmonary embolism. External documents reviewed: N/A Test considered but not ordered:N/A ED course: Transient chest pain pain with deep breaths leg swelling. Low risk Wells criteria for PE. Cardiac workup initiated including D-dimer. Current chest pain-free. 2212: Hemoglobin 12.1 hCG negative. D-dimer called back reported 0.63. Will obtain CT angiogram for further evaluation. 2320: Troponin less than 3. Per algorithm, not likely cardiac in nature. Bedside ultrasound performed myself of the left lower extremity. 2 point evaluation groin down the upper two thirds of the thigh and popliteal vein was fully compressible. CT angiogram read is pending, my review, no pulmonary embolism noted. 2342: Final read per radiology negative for PE. Patient remains symptom-free. Formal outpatient ultrasound will be ordered for left lower extremity however bedside ultrasound shows no proximal DVT. Discussed return precaution with the patient. Outpatient follow-up given. Re-evaluation: stable Disposition discussed with patient/family/significant other: Patient Case discussed with consulting clinician: N/A This note was generated with [employer] dictation software. It may contain incorrect words, spelling, and punctuation that were not noted in checking the note before signing. Lab Data Attestation: I reviewed the patient's lab results. Labs: Laboratory Results - last 24 hr 01/14/24 21:52 WBC 7.7 RBC 3.99 L Hgb 12.1 Hct 35.9 L MCV 90.0 MCH 30.3 MCHC 33.7 RDW Std Deviation 41.2 RDW Coeff of Kathy 12.5 Plt Count 304 MPV 9.0 Immature Gran % (Auto) 0.300 Neut % (Auto) 55.3 Lymph % (Auto) 34.5 [place] % (Auto) 8.9 Eos % (Auto) 0.4 Baso % (Auto) 0.6 Absolute Neuts (auto) 4.3 Absolute Lymphs (auto) 2.67 Nucleated RBC % 0 D-Dimer Quant (PE/DVT) 0.63 H* Sodium 136 Potassium 3.2 L Chloride 106 Carbon Dioxide 26.0 Anion Gap 5 BUN 17 Creatinine 0.65 Estim Creat Clear Calc 121.54 Est GFR (MDRD) Af Amer 139 Est GFR (MDRD) Non-Af 115 BUN/Creatinine Ratio 26.0 H Glucose 83 Calcium 8.9 Troponin I High Sens < 3 L Serum , Qual NEGATIVE Radiography Diagnostic Testing: Clinical Impression(s) from Imaging Studies Chest CTA 01/14/24 22:13 IMPRESSION: No evidence of pulmonary emboli. Electronically Signed: Marga Alicea MD at 23:40 EDT , Discharge Plan Triage Chief Complaint: Chest Pain Other Complaint: Lower Extremity Injury ED Provider: Kavin Prasad Dx/Rx/DC Orders Clinical Impression: Chest pain, Left leg swelling, Tobacco dependence Instructions: ED Chest Pain, Noncardiac, ED Peripheral Edema, Unilateral Other Ambulatory Orders: Venous Duplex US, Unilateral (Stat) Facility: [facility] - Location: [facility] Ordered By: Dr. Kavin Prasad Primary Care Provider: Care Physician,No Primary Referrals: Aicha Centeno [Non-Staff] - 1 Week Care Physician,No Primary [Primary Care Provider] - Activity Restrictions/Additional Instructions: Your cardiac workup negative. Your CT chest negative. Return tomorrow for formal ultrasound left lower extremity. Avoid tobacco as increased risks with blood clots with your control. Follow-up with your doctor. If your symptoms recurs or worsens, return to the ED for reevaluation. Print Language: [place] Islander Disposition Disposition: Home, Self Care
[2024-01-14 22:11] LABS: D-Dimer Quantitative (DVT/PE) 0.63 FEU/ug/m (0.27-0.49)
--- NOTE | 2024-01-14 22:13 | CT_ITS ---
STUDY: CTA CHEST REASON FOR EXAM: Female, 28 years old. chest pain, elevated dimer RADIATION DOSAGE (If Supplied By Facility): CTDIvol = ( 6.86 ) mGy, DLP = ( 201.82 ) mGycm TECHNIQUE: The examination was performed with the intravenous administration of IV 75mL Isovue-370. Post-processing of the angiographic images was performed, with multiplanar reformation and 3D reconstruction. The protocol utilizes one or more of the following dose reduction techniques: automated exposure control, adjustment of mA and/or kV according to patient size,and/or use of iterative reconstruction technique. COMPARISON: No relevant prior comparison study available FINDINGS: LUNGS: No consolidation. PLEURA: No pleural effusion. No pneumothorax. PULMONARY VESSELS: No pulmonary emboli identified. MEDIASTINUM: Unremarkable. HEART: Not enlarged. AORTA/GREAT VESSELS: Thoracic aorta is normal caliber. No aneurysm or dissection. UPPER ABDOMEN: No acute findings. BONES/SOFT TISSUES: No acute findings. OTHER: None. CT/CTA Chest W/WO Contrast IMPRESSION: No evidence of pulmonary emboli. Electronically Signed: Marga Alicea MD at 23:40 EDT ,
[2024-01-14 22:16] LABS: Anion Gap 5 (5-15); BUN 17 mg/dL (7-18); Calcium,Total 8.9 mg/dL (8.5-10.1); Chloride 106 mmol/L (98-107); Creatinine, Serum 0.65 mg/dL (0.55-1.02); EST Glomerular Filtration Rate 115 mL/min (>60); Est Glom Filt Rate - Afr Amer 139 mL/min (>60); Estimated Creatinine Clearance 121.54 ml/min; Glucose 83 mg/dL (74-106); Potassium 3.2 mmol/L (3.5-5.1); Sodium Level 136 mmol/L (136-145); Troponin-I HS (w/2H Reflex) < 3 pg/mL (3.0-54.0)
[2024-01-14 22:28] VITALS: BP 120/63; PULSE 77; RESP 20; O2SAT 93
[2024-01-14 23:00] VITALS: BP 125/79; PULSE 78; RESP 19; O2SAT 95
[2024-01-14 23:50] VITALS: BP 116/82; PULSE 80; RESP 19; TEMP 35.9; O2SAT 98
[2024-01-14 23:55] LABS: Reflex Troponin-HS? (from REC) Y
== END 2024-01-14 23:51 | disposition home or self-care (01) ==
PROVIDERS: Emergency Provider Emergency Medicine; Visit Provider Emergency Medicine
DX: R07.89 Other chest pain (principal); M79.89 Other specified soft tissue disorders; F17.210 Nicotine dependence, cigarettes, uncomplicated; F17.290 Nicotine dependence, other tobacco product, uncomplicated; Z97.5 Presence of (intrauterine) contraceptive device; Z88.0 Allergy status to penicillin
CPT/HCPCS: 71275; 80048; 84484; 84703; 85025; 85379; 93005; 99285; Q9967; A4216

== ENCOUNTER 2024-03-08 04:39 | Emergency (ER) | payer MEDICAID, SELFPAY ==
[2024-03-08 04:39] VITALS: BP 129/79; PULSE 94; RESP 18; TEMP 36.6; O2SAT 100; BMI 27.2
--- NOTE | 2024-03-08 05:01 | CT_ITS ---
STUDY: CT BRAIN WITHOUT CONTRAST REASON FOR EXAM: Female, 28 years old patient with headache. RADIATION DOSAGE (If Supplied By Facility): CTDIvol = ( 44.99 ) mGy, DLP = ( 796.11 ) mGycm TECHNIQUE: Transaxial CT imaging of the brain was performed without administration of intravenous contrast material. Individualized dose optimization techniques were used for this CT. COMPARISON: No relevant priors. FINDINGS: Normal soft tissue structures. Normal calvarium. Normal size ventricles and extra-axial spaces for the patient''s age. Normal white matter tracts of the cerebral hemispheres. Normal basal ganglia and thalami. Normal brainstem. Normal cerebellum. There is no intracranial hemorrhage. There are no findings of an acute ischemic infarction. Normal visualized paranasal sinuses. CT/Brain/Head without Contrast IMPRESSION: No CT evidence of acute intracranial hemorrhage. Electronically Signed: Pippa Longo MD at 6:42 EST ,
--- NOTE | 2024-03-08 05:14 | EX.ED.DYSGE1 ---
HPI History of Present Illness Chief Complaint: General Illness Informant: patient Narrative Narrative: Patient is a 28-year-old female with past medical history of tobacco abuse polysubstance abuse and anxiety. She states over the past 3 to 4 days she just has not felt right. She states she has been having intermittent nosebleeds that she states will come on out of nowhere and bleed for 10 to 15 minutes before they stop. She states she does not have a history of bleeding disorder nor does she take blood thinners. She also denies any recent trauma or significant nasal congestion or blowing her nose repeatedly during this time. She also states that her whole body feels numb and tingly yet she denies any vomiting or diarrhea which could relate to electrolyte abnormality. She does have a past history of polysubstance use but denies any recent illicit substance use prior to her symptoms beginning. However since she overall just feels unwell she presents for evaluation [facility] Medical History (Updated 03/08/24 @ 06:[address] Miguel Nix DO) Chronic migraine History of gallstones History of emotional problems History of drug abuse Home Medications ?Medication ?Instructions ?Recorded ?Last Taken ?Type NK 03/08/24 Unknown History Allergy/AdvReac Type Severity Reaction Status Date / Time Penicillins (PCN) Allergy Anaphylaxis Verified 03/08/24 04:39 Family History Father Alcoholism Anxiety Depression Hypertension Suicide Mother Thyroid disorder Social History Smoking Status: Current every day smoker tobacco type: cigarettes and e-cigarettes ROS ROS ED Constitutional Constitutional ED: Denies chills or fever(s) Eyes Eyes: Denies blurry vision or change in vision ENT ENT ED: Reports other Details: Positive nosebleeds ; Denies sore throat Cardiovascular Cardiovascular: Denies chest pain Respiratory/Chest Respiratory/Chest: Denies cough or dyspnea Gastrointestinal Gastrointestinal: Denies abdominal pain, diarrhea, nausea or vomiting Genitourinary Genitourinary ED: Denies dysuria Musculoskeletal Musculoskeletal: Denies myalgias Integumentary Denies rash Neurologic Neurologic: Reports headache(s) and paresthesias Psychiatric Psychiatric: Reports anxiety Hematologic/Lymphatic Hematologic/Lymphatic: Denies easy bleeding or easy bruising EXAM Physical Exam Const Vital Signs: 03/08/24 04:39 03/08/24 04:43 03/08/24 06:39 Temperature 97.9 F Temperature Source Oral Pulse Rate 94 74 Respiratory Rate 18 16 Respiratory Effort Normal Non-Labored Respiratory Pattern Normal Blood Pressure 129/79 H 111/82 H Blood Pressure Mean 95 91 Pulse Ox 100 100 Oxygen Delivery Method Room Air Room Air 03/08/24 06:47 Temperature 98.0 F Temperature Source Pulse Rate 74 Respiratory Rate 16 Respiratory Effort Respiratory Pattern Blood Pressure 111/82 H Blood Pressure Mean 91 Pulse Ox 100 Oxygen Delivery Method Positive well nourished and well developed General Appearance ED: well developed; Negative for pallor HEENT Reports moist mucous membranes HEENT Narrative: No dried blood or active bleeding noted in the nasal mucosa. No septal hematoma present. No septal perforation. The septum is slightly dry friable bilaterally. No tongue or lip swelling no oral lesions no airway edema or compromise No secondary findings in the posterior pharynx to suggest infection Eyes PERRL and EOMs intact bilaterally Eyes Narrative: No hyphema noted General Eye ED: Negative for scleral icterus Neck supple Neck Narrative: No nuchal rigidity or meningeal signs Resp normal respiratory effort and clear to auscultation bilaterally Cardio regular rate and regular rhythm GI normal to inspection, nondistended, normoactive bowel sounds, non-tender, non-distended and no masses Auscultation: normoactive bowel sounds Palpation: soft Extremity normal to inspection Extremity Narrative: No asymmetric edema no pitting edema negative Homans' sign bilaterally Neuro oriented x3, CN's II-XII intact bilaterally and no sensory deficits noted Neuro Narrative: GCS of 15 Cranial nerves II through XII are grossly intact there are no focal neurologic deficits No pronator drift no dysmetria no truncal ataxia NIH stroke scale score of 0 Sensorium / Orientation: alert Motor Exam: strength 5/5 throughout Psych Psych Narrative: Patient has a nervous/anxious affect Skin no rashes or lesions noted General Skin Exam: Negative for jaundice or pallor MDM MDM MDM Narrative Medical decision making narrative: Patient arrived to the ER with stable vitals. She had multiple complaints but as she reported headache and sensation of paresthesias I did elect to perform a noncontrast head CT to check for potential intracranial hemorrhage or mass. There is also concern that her symptoms could be related to acute kidney injury or complication or severe electrolyte abnormality and therefore basic blood work was obtained as well. The patient's head CT revealed no acute findings and laboratory studies revealed no clinically significant changes either. The patient's neurologic exam was normal upon arrival and on repeat evaluation remains normal with stroke scale score of 0. Therefore at this time as the head CT reveals no acute bleed or mass and labs revealed no clinically significant findings and she is NIH stroke scale score of 0 with stable vitals there is no need for further workup in the emergency department and patient is otherwise safe for discharge. History & Record Review Discussion w/independent historian: Patient Lab Data Attestation: I reviewed the patient's lab results. Labs: Laboratory Results - last 24 hr 03/08/24 05:09 WBC 6.9 RBC 4.11 L Hgb 12.6 Hct 36.9 L MCV 89.8 MCH 30.7 MCHC 34.1 RDW Std Deviation 41.3 RDW Coeff of Kathy 12.6 Plt Count 341 MPV 9.0 Immature Gran % (Auto) 0.300 Neut % (Auto) 45.0 L Lymph % (Auto) 41.0 Island % (Auto) 10.8 H Eos % (Auto) 1.7 Baso % (Auto) 1.2 H Absolute Neuts (auto) 3.1 Absolute Lymphs (auto) 2.82 Nucleated RBC % 0 Sodium 140 Potassium 3.5 Chloride 106 Carbon Dioxide 29.0 Anion Gap 5 BUN 20 H Creatinine 0.67 Estim Creat Clear Calc 122.69 Est GFR (MDRD) Af Amer 135 Est GFR (MDRD) Non-Af 112 BUN/Creatinine Ratio 29.9 H Glucose 121 H Calcium 9.0 Magnesium 2.2 Serum , Qual NEGATIVE Radiography Diagnostic Testing: Clinical Impression(s) from Imaging Studies Brain CT 03/08/24 05:01 IMPRESSION: No CT evidence of acute intracranial hemorrhage. Electronically Signed: Pippa Longo MD at 6:42 EST Reading Location ID and State: [facility] / [place] , Service support , Discharge Plan Triage Chief Complaint: General Illness ED Provider: Miguel Nix Dx/Rx/DC Orders Clinical Impression: Cephalgia, Paresthesia, Tobacco use, Anxiety Instructions: Understanding Headache Pain, ED Paraesthesias Prescriptions: No Action NK Primary Care Provider: Care Physician,No Primary Referrals: Green,Sandeep, MD [Med Staff - Active Staff] - Care Physician,No Primary [Primary Care Provider] - Activity Restrictions/Additional Instructions: Please follow-up with your family doctor for further evaluation and return to the ER should you have any further concerns Print Language: Bruneian Disposition Disposition: Home, Self Care
[2024-03-08 05:28] LABS: Absolute Lymphocyte Count 2.82 X10^3/uL (0.83-4.51); Absolute Neutrophil Count 3.1 X10^3/uL (2.0-7.7); Basophil# 0.08 X10^3/uL; Basophil% 1.2 % (0-1); Eosinophil# 0.12 X10^3/uL; Eosinophils% 1.7 % (0-5); Hematocrit 36.9 % (37-47); Hemoglobin 12.6 g/dL (12.0-15.0); Lymphocyte # 2.82 X10^3/ul (0.83-4.51); Mean Corp Hgb Conc 34.1 g/dL (32-36); Mean Corpuscular Hgb 30.7 pg (27.0-32.0); Mean Corpuscular Volume 89.8 fL (81-99); Monocyte# 0.74 X10^3/uL; Monocyte% 10.8 % (0-10); NRBC Flagged by Analyzer 0 % (0-5); Platelet Count 341 K/mm3 (150-450); RBC Distribution Width CV 12.6 % (11.6-14.6); RBC Distribution Width SD 41.3 fl (35.1-43.9); Red Blood Count 4.11 M/mm3 (4.2-5.4); White Blood Count 6.9 K/mm3 (4.4-11.0)
[2024-03-08 05:50] LABS: Internal QC Validated? YES +Cl - CLEAR BKGD; Pregnancy, Serum, hCG Quali. NEGATIVE Negative; Record Kit Lot#, Serum Preg. 872158
[2024-03-08 05:52] LABS: Anion Gap 5 (5-15); BUN 20 mg/dL (7-18); BUN/Creat Ratio 29.9 RATIO (10-20); Chloride 106 mmol/L (98-107); Creatinine, Serum 0.67 mg/dL (0.55-1.02); EST Glomerular Filtration Rate 112 mL/min (>60); Est Glom Filt Rate - Afr Amer 135 mL/min (>60); Estimated Creatinine Clearance 122.69 ml/min; Glucose 121 mg/dL (74-106); Magnesium 2.2 mg/dL (1.6-2.6); Potassium 3.5 mmol/L (3.5-5.1); Sodium Level 140 mmol/L (136-145)
[2024-03-08 06:39] VITALS: BP 111/82; PULSE 74; RESP 16; O2SAT 100
[2024-03-08 06:47] VITALS: BP 111/82; PULSE 74; RESP 16; TEMP 36.7; O2SAT 100
== END 2024-03-08 06:53 | disposition home or self-care (01) ==
PROVIDERS: Emergency Provider Emergency Medicine; Visit Provider Emergency Medicine
DX: R51.9 Headache, unspecified (principal); F19.10 Other psychoactive substance abuse, uncomplicated; R20.2 Paresthesia of skin; F41.9 Anxiety disorder, unspecified; F17.210 Nicotine dependence, cigarettes, uncomplicated; F17.290 Nicotine dependence, other tobacco product, uncomplicated; Z88.0 Allergy status to penicillin
CPT/HCPCS: 70450; 80048; 83735; 84703; 85025; 99284; A4216